=== PATIENT | female | born 1955 | race Caucasian/White ===

== ENCOUNTER 2020-04-02 00:26 | Inpatient (IN) | payer MEDICARE, SELFPAY ==
[2020-04-02] VITALS (15 sets, daily range): BP systolic 70–115; BP diastolic 38–86; PULSE 57–78; RESP 16–20; TEMP 36.4–37.1; O2SAT 93–98; BMI 25.1
--- NOTE | ~2020-04-02 | XR_ITS ---
EXAMINATION: XR abdomen/kub 1V DATE: 04/03/2020 03:59 INDICATION: Ischemic bowel TECHNIQUE: A supine view of the abdomen on 2 radiographs was obtained. COMPARISON: CT dated 04/02/2020 FINDINGS: Moderate amount of gas scattered throughout the colon. No pneumatosis. No dilated loops of gas-filled bowel to suggest obstruction. Cholecystectomy clips in the right upper quadrant. L3 compression frac ture with 50% right-sided vertebral body height loss resulting in a lumbar levoscoliosis. Severe lumb ar spondylosis. Status post L3 and L4 laminectomies. Spinal stimulator lead which projects over the l ower thoracic spine with lead tips at the level of T6. IMPRESSION: 1. Normal bowel gas pattern. Reviewed, dictated and finalized at location A.
--- NOTE | ~2020-04-02 | CT_ITS ---
EXAMINATION: CT abdomen pelvis w con DATE: 04/02/2020 01:53 INDICATION: Abdomen pain TECHNIQUE: Computed tomography (CT) of the abdomen and pelvis was performed with 100 cc Omnipaque 350 intravenous contrast. The dose-length product was 240.01 mGy-cm. COMPARISON: CT dated 01/20/2012. FINDINGS: There is a 5 mm right lower lobe nodule, image 56. Heart size normal. No significant pleura l or pericardial effusion. There are fluid-filled small bowel loops. There is fluid in the colon as w ell as the stomach with mild wall thickening of the distal stomach/pylorus. No definite obstruction. No free air, free fluid or abscess. There is a catheter in the bladder. Status post cholecystectomy w ith expected prominence of the bile ducts. There is a spinal stimulator lead with laminectomy changes in the lumbar spine. There are probable hepatic cysts. No significant vascular abnormality. No lymph adenopathy. IMPRESSION: 1. Fluid in the stomach, small bowel and colon with mild distal stomach wall thickening. Findings zakia picious for gastroenteritis/enterocolitis. 2: 5 mm right lower lobe nodule. Follow-up CT chest and 6-12 months recommended to assess stability. Reviewed, dictated and finalized at location A. IMPRESSION: 1. Fluid in the stomach, small bowel and colon with mild distal stomach wall th ickening. Findings suspicious for gastroenteritis/enterocolitis. 2: 5 mm right lower lobe nodule. Follow-up CT chest and 6-12 months recommende d to assess stability.
--- NOTE | ~2020-04-02 | CT_ITS ---
EXAMINATION: CTA chest PE protocol EXAM DATE: 04/02/2020 23:57 INDICATION: Hypotension, elevated d-dimer. TECHNIQUE: Spiral CTA of the chest (pulmonary arteries) was performed with 100 cc Omnipaque 350 intr avenous contrast injection. Images were acquired during the pulmonary arterial phase. Coronal maxi mum intensity projection 3D-reconstructions were created by the technologist on dedicated workstation . Axial, coronal and sagittal reformatted images were reviewed. The dose-length product (DLP) for t his examination was 288.52 mGy-cm. The exposure was tailored according to patient size (auto mA exp osure control), and iterative reconstruction (ASIR) was used as additional dose reduction technique. Comparison is made to prior examination from 01/17/2012. FINDINGS: Pulmonary arteries are well opacified and without intraluminal filling defects. No thora cic aortic dissection. Congenital aberrant right subclavian artery. The lungs are clear. Trace pleu ral or pericardial effusions. Tracheobronchial tree is patent. There is no mediastinal, hilar or a xillary lymphadenopathy. There is no pneumothorax. Heart normal in size. No evidence of coronar y arterial calcification. There are cholecystectomy clips. There is thoracic spondylosis without os teoblastic or osteolytic lesions identified. Spine neural stimulator leads with tips at the T5-6 in terspace level. IMPRESSION: 1. No pulmonary emboli or acute cardiopulmonary findings. Reviewed, dictated and finalized at location G.
--- NOTE | 2020-04-02 00:46 | ED.ABDPAIN ---
HPI - Abdominal Pain General Chief Complaint: Abdominal Pain Stated Complaint: Abdominal Pain Time Seen by Provider: 04/02/20 00:46 Source: patient and EMS Mode of arrival: EMS Limitations: no limitations History of Present Illness HPI narrative: Patient states that she was in bed suddenly felt cramping in her abdomen. She went to the bathroom trying to have a bowel movement. She states at 1st she was unable to move her bowels. On EMS arrival they stated was obvious that she had moved her bowels. She complains of generalized cramping in her abdomen, headache. MD elicited complaint: abdominal pain Onset (ago): hour(s) (1.5) Pain Consistency: intermittent Location: diffuse Severity: moderate Quality: cramping and aching Radiation: none Migration to: no migration Exacerbating factors: movement Relieving factors: nothing Context: confirms history of similar episodes Associated symptoms: nausea and vomiting Related Data Patient : No Home Medications Medication Instructions Recorded Confirmed cyclobenzaprine 5 mg PO BID 04/02/20 04/02/20 duloxetine 30 mg PO BID 04/02/20 04/02/20 fluticasone propionate 1 spray INTRANASAL DAILY 04/02/20 04/02/20 gabapentin 800 mg PO TID 04/02/20 04/02/20 levothyroxine 50 mcg PO DAILY 04/02/20 04/02/20 lidocaine 1 patch TOPICAL Q12-24H 04/02/20 04/02/20 lisinopril 5 mg PO DAILY 04/02/20 04/02/20 methylnaltrexone [Relistor] 12 mg SUBCUT DAILY 04/02/20 04/02/20 naloxone [Narcan] 1 spray INTRANASAL PRN PRN 04/02/20 04/02/20 oxycodone-acetaminophen 1 tablet PO TID 04/02/20 04/02/20 sumatriptan succinate 6 mg SUBCUT DIRECTED PRN 04/02/20 04/02/20 Allergies Allergy/AdvReac Type Severity Reaction Status Date / Time Penicillins Allergy Severe anaphylaxis, Verified 01/01/12 15:09 hives Sulfa (Sulfonamide Allergy Mild Diarrhea Verified 04/02/20 04:09 Antibiotics) Review of Systems Constitutional: Constitutional: Denies chills, Denies fever(s) and Denies weakness Eyes: Eyes: Reports no additional eye complaints ENT: Reports system reviewed and no additional complaints, except as documented Cardiovascular: Cardiovascular: Reports no additional cardiovascular complaints Respiratory: Respiratory: Reports no additional respiratory complaints Genitourinary: Genitourinary: Reports no additional female genitourinary complaints Musculoskeletal: Musculoskeletal: Reports no additional musculoskeletal complaints Integumentary/Breasts: Skin/Breast: Reports system reviewed and no additional complaints, except as docu Neurologic: Reports system reviewed and no additional complaints, except as documented and Reports headache(s) Psychiatric: Psychiatric: Reports no additional psychiatric complaints Endocrine: Endocrine: Reports no additional endocrine complaints Hematologic/Lymphatic: Hematologic/Lymphatic: Reports no additional hematologic/lymphatic complaints Allergic/Immunologic: Allergic/Immunologic: Reports no additional allergic/immunologic complaints [facility] Past Medical History Medical History (Updated 04/02/20 @ 03:59 by Darrell Blackburn MD) Chronic back pain Depression with anxiety GERD (gastroesophageal reflux disease) Hypothyroidism Insomnia Migraine Rheumatoid arthritis Surgical History Surgical History (Updated 04/02/20 @ 01:11 by Darrell Blackburn MD) H/O knee surgery left H/O shoulder surgery left History of cholecystectomy Presence of neurostimulator Social History Social History (Updated 04/02/20 @ 01:12 by Darrell Blackburn MD) Smoking status: Never smoker Alcohol intake: never Substance use: never Exam Const: General: no acute distress and ill appearing chronically Nutritional Appearance: thin Orientation/consciousness: patient oriented x3 HENMT: Head: normal to inspection Ears: external ears normal General nose exam: Normal external nose present Face and sinus: normal facial exam Mouth: Yes lip normal and Yes moist mucous memb
[2020-04-02 01:10] LABS: Basophils Absolute Auto 0.03 K/mm3 (0.00-0.10); Basophils Percent Auto 0.2 % (0.0-1.0); Eosinophils Absolute Auto 0.15 K/mm3 (0.02-0.50); Hemoglobin 14.1 g/dL (11.7-13.8); Immature Granulocyte Absolute 0.12 K/mm3 (0.00-0.00); Immature Granulocyte Percent A 0.8 % (0.0-0.0); Lymphocytes Absolute Auto 1.52 K/mm3 (1.10-4.50); Lymphocytes Percent Auto 9.7 % (18.0-42.0); Mean Corpuscular HGB Conc 32.8 g/dL (32.0-36.0); Mean Corpuscular Hemoglobin 30.1 pg (27.0-31.0); Mean Corpuscular Volume 91.9 fL (78.0-102.0); Mean Platelet Volume 9.1 fl (9.2-11.8); Monocytes Percent Auto 4.5 % (2.0-11.0); Neutrophils Absolute Auto 13.1 K/mm3 (1.7-7.2); Neutrophils Percent Auto 83.8 % (50.0-70.0); Platelet Count Result 428 K/mm3 (150-420); Red Blood Count 4.68 M/mm3 (4.20-5.40); Red Cell Distribution Width 13.7 % (11.6-14.4); White Blood Count 15.6 K/mm3 (4.8-10.8)
[2020-04-02 01:27] LABS: Alanine Aminotransferase 20 U/L (14-59); Albumin Level 3.6 g/dL (3.4-5.0); Alkaline Phosphatase 221 U/L (46-116); Anion Gap 10.8 mmol/L (7-16); Aspartate Amino Transferase 24 U/L (15-37); Bilirubin,Total 0.2 mg/dL (0.00-1.00); Blood Urea Nitrogen 16 mg/dL (7-18); Calcium 9.1 mg/dL (8.5-10.1); Carbon Dioxide 31 mmol/L (21-32); Chloride 102 mmol/L (98-108); Estimated CRCL calculation 26 ml/min; Estimated Glomerular Filt Rate 37; Glucose 123 mg/dL (70-99); Lipase 118 U/L (73-393); Osmolality Calculated 292 mOsm/kg (285-295); Potassium 3.8 mmol/L (3.5-5.1); Sodium 140 mmol/L (136-145)
[2020-04-02 01:28] LABS: CRP 1.3 mg/dL (0.0-0.9)
[2020-04-02] MEDS: KETOROLAC 30 MG/ML VIAL (*BKC) IV PUSH (01:29)
[2020-04-02] MEDS: ONDANSETRON INJ 4 MG/2 ML VIAL IV PUSH ×2 (01:30→18:32)
[2020-04-02] MEDS: SODIUM CHLORIDE 0.9% IV 1,000 ML 999 ML IV CONT (01:30)
[2020-04-02 01:34] LABS: Amylase 196 U/L (25-115)
--- NOTE | 2020-04-02 01:37 | PC.NURSE ---
pt to xray for ct per stretcher
[2020-04-02] MEDS: SODIUM CHLORIDE 0.9% IV 1,000 ML 999 ML (03:02)
--- NOTE | 2020-04-02 03:03 | PC.NURSE ---
pt sleeping , easily aroused.
[2020-04-02 03:44] LABS: Appearance Urine Sl Cloudy (Clear); Bilirubin Urine Negative (Negative); Color Urine Yellow (Yellow); Glucose Urine UA Negative (Negative); Ketones Urine Negative (Negative); Leukocyte Esterase Ur 1+ LEU/UL (Negative); Nitrate Urine Negative (Negative); Protein Urine 2+ (Negative); Specific Grav Ur <= 1.005 (1.010-1.020); Urobilinogen Urine 0.2 mg/dL (0.2-1.0); pH Urine 6.5 (5.0-8.0)
[2020-04-02 03:53] LABS: Add Urine Microscopic? YES; Blood Urine Trace (Negative); WBC Clumps Urine Present /hpf; WBC Urine 51-75 /hpf (0-3)
[2020-04-02 03:54] LABS: Bacteria Urine 1+ /hpf; Squamous Epithelial Cell Urine Rare /hpf (Few)
[2020-04-02 04:19] LABS: Lactic Acid 1.8 mmol/L (0.4-2.0)
--- NOTE | 2020-04-02 04:32 | PC.NURSE ---
pt alert and stable. to floor with antonio baird per wheelchair.
[2020-04-02] MEDS: SODIUM CHLORIDE 0.9% IV 1,000 ML 200 ML IV CONT ×2 (04:58→09:37)
--- NOTE | 2020-04-02 05:18 | ADMGEN ---
This patient, Joyce Benitez, was admitted to 2nd Floor Room 206-1. Patient oriented to hospital policies and general routines including ID bracelet, bed and alarms, visiting hours, pain management, procedures, bathroom and other care routines, personal items, smoking policy, room service/diet, and visiting hours. Valuables list includes nightgown only. Information on how to activate the Rapid Response Team has been discussed. Patient are encouraged to report perceived risks to care and to ask questions if they do not understand what they are told or what they should do.
--- NOTE | 2020-04-02 08:01 | PC.NURSE ---
denies abdominal pain, back pain is bad, states 06/03
[2020-04-02] MEDS: CYCLOBENZAPRINE HCL 10 MG TABLET 5 MG PO ×2 (08:45→16:56)
[2020-04-02] MEDS: FLUTICASONE PROPIONATE 0.05% NA SPR 16 GM BTL (*BKC) 1 SPRAY NASAL (08:46)
[2020-04-02] MEDS: GABAPENTIN 400 MG CAPSULE 800 MG PO ×3 (08:46→16:56)
[2020-04-02] MEDS: LEVOTHYROXINE SODIUM 50 MCG TABLET PO (08:48)
[2020-04-02] MEDS: LIDOCAINE 5% PATCH 1 PATCH TRANSDERM (08:48)
[2020-04-02] MEDS: DULOXETINE HCL 30 MG CAPSULE.DR PO ×2 (08:48→16:57)
[2020-04-02 08:50] LABS: Amylase 61 U/L (25-115)
--- NOTE | 2020-04-02 08:53 | PC.NURSE ---
AM meds given including pain medication, no abdominal pain, states pain in her back and in her left flank region
[2020-04-02 09:40] LABS: Hematocrit 31.1 % (35.0-42.0); Hemoglobin 10.3 g/dL (11.7-13.8); Mean Corpuscular HGB Conc 33.1 g/dL (32.0-36.0); Mean Corpuscular Hemoglobin 30.4 pg (27.0-31.0); Mean Corpuscular Volume 91.7 fL (78.0-102.0); Mean Platelet Volume 9.5 fl (9.2-11.8); Platelet Count Result 277 K/mm3 (150-420); Red Blood Count 3.39 M/mm3 (4.20-5.40); Red Cell Distribution Width 14.1 % (11.6-14.4); White Blood Count 9.6 K/mm3 (4.8-10.8)
--- NOTE | 2020-04-02 09:40 | PC.NURSE ---
Pain in back starting to ease 05/03
[2020-04-02 09:49] LABS: Alanine Aminotransferase 19 U/L (14-59); Albumin Level 2.6 g/dL (3.4-5.0); Alkaline Phosphatase 151 U/L (46-116); Anion Gap 11.1 mmol/L (7-16); Aspartate Amino Transferase 22 U/L (15-37); Bilirubin,Total 0.2 mg/dL (0.00-1.00); Blood Urea Nitrogen 11 mg/dL (7-18); Calcium 7.7 mg/dL (8.5-10.1); Carbon Dioxide 24 mmol/L (21-32); Chloride 108 mmol/L (98-108); Estimated CRCL calculation 35 ml/min; Estimated Glomerular Filt Rate 54; Glucose 125 mg/dL (70-99); Osmolality Calculated 288 mOsm/kg (285-295); Potassium 4.1 mmol/L (3.5-5.1); Sodium 139 mmol/L (136-145); Total Protein 5.1 g/dL (6.4-8.2)
--- NOTE | 2020-04-02 10:58 | PC.NURSE ---
napping, no evidence of pain noted, fluids infusing
--- NOTE | 2020-04-02 12:20 | PC.NURSE ---
Up to void, tolerated fair, used commode, fluids infusing, urine mixed with loose stool noted
--- NOTE | 2020-04-02 13:14 | PM.IMHP ---
H&P: HPI History of Present Illness Chief complaint: entercolitis <IVETT Marshall-Carley - Last Filed: 04/02/20 13:51> Narrative: Joyce Benitez is a 64 year old female that came to the ED with complaints of abdominal pain. patient has a past medical history chronic back pain, depression anxiety, GERD, hypothyroidism, insomnia, migraine, rheumatoid arthritis. According to patient yesterday she was at she started to have abdominal pain with cramping. She noted that she originally believed that she was constipated and attempted to have a bowel movement. She noted that she was unable to that. She also reported of nausea and vomiting with decreased appetite. She did not describe any other symptoms at that time. She noted that EMS was called and by the time they arrived she had had a bowel movement and continue to have abdominal pain with cramping. Patient noted that she has not ever experience this before. Today during this assessment she noted that her condition has much improved but she continues to have abdominal tenderness and is not able to tolerate fluids at this time her vital signs are 90/60, 58,18,, 95% room air. While in the ED a UA was collected in indicated that the patient had leukocytes and bacteria in her urine a CT of the pelvis was completed which indicated gastroenteritis /entercolitis. her amylase was also increase but a lipase within was within normal limits. Patient's CRP was also elevated. her white count was also at 15.6 and her creatinine was at 1.42. patient is being admitted for gastroenteritis and UTI. she continues to complain of pain in the umbilical area. Patient denies SOB, CP, palpitation, extremity numbness, lightheadness, dizziness, constipation, diarrhea, chills or fever. <IVETT Marshall-Carley - Last Filed: 04/02/20 13:51> Review of Systems Review of Systems: Narrative: CONSTITUTIONAL :No weight loss, fever, chills, weakness or fatigue.: HEENT: Eyes: No diplopia or blurred vision. ENT: No earache, sore throat or runny nose. CARDIOVASCULAR: No pressure, squeezing, strangling, tightness, heaviness or aching about the chest, neck, axilla or epigastrium. RESPIRATORY: No cough, shortness of breath, PND or orthopnea. GASTROINTESTINAL: No nausea, vomiting or diarrhea. GENITOURINARY: No dysuria, frequency or urgency. MUSCULOSKELETAL: No muscle, back pain, joint pain or stiffness. SKIN: No change in skin, hair or nails. NEUROLOGIC: No paresthesias, fasciculations, seizures or weakness. PSYCHIATRIC: No disorder of thought or mood. ENDOCRINE: No heat or cold intolerance, polyuria or polydipsia. HEMATOLOGICAL: No easy bruising or bleeding. CONSTITUTIONAL : complain weakness and fatigue. HEENT: Eyes: No diplopia or blurred vision. ENT: No earache, sore throat or runny nose. CARDIOVASCULAR: No pressure, squeezing, strangling, tightness, heaviness or aching about the chest, neck, axilla or epigastrium. RESPIRATORY: No cough, shortness of breath, PND or orthopnea. GASTROINTESTINAL: abdominal tenderness in the umbilical area region, slight nausea no vomiting GENITOURINARY: No dysuria, frequency or urgency. MUSCULOSKELETAL:joint pain or stiffness due to rheumatoid arthritis SKIN: No change in skin, hair or nails. NEUROLOGIC: No paresthesias, fasciculations, seizures or weakness. PSYCHIATRIC: No disorder of thought or mood. ENDOCRINE: No heat or cold intolerance, polyuria or polydipsia. HEMATOLOGICAL: No easy bruising or bleeding. <LAVELLE Marshall - Last Filed: 04/02/20 13:51> [facility] Past Medical History Medical History: Medical History (Updated 04/02/20 @ 13:50 by LAVELLE Marshall) Chronic back pain Depression with anxiety GERD (gastroesophageal reflux disease) Hypothyroidism Insomnia Migraine Rheumatoid arthritis <LAVELLE Marshall - Last Filed: 04/02/20 13:51> Surgical History Surgical History: Surgical History (Updated 04/02/20 @ 01:11 by Darrell Donahue
[2020-04-02] MEDS: metroNIDAZOLE 250 MG TABLET 500 MG PO ×2 (13:32→22:42)
[2020-04-02] MEDS: METHYLNALTREXONE 12 MG/0.6 ML VIAL SUB-Q (13:39)
--- NOTE | 2020-04-02 14:50 | PC.NURSE ---
states legs hurting, scheduled percocet administered, no distress noted, napping at intervals, fluids infusing
--- NOTE | 2020-04-02 16:00 | PC.NURSE ---
NAPPING, NO DISTRESS. NO C/O ABD PAIN.
--- NOTE | 2020-04-02 18:20 | PC.NURSE ---
PT DENIES NAUSEA, NO VOMITING, ATE 100% OF SUPPER. STATES SHE STILL FEELS WEAK AND FATIGUED. NO DISTRESS. PT REPORTS TAKING ANALGESIC AT HOME THAT IS NOT ON OUR FORMULARY, PT TO CONTACT FAMILY TO BRING IN FOR HOSPITALIST TO EVALUATE AND CONTINUE IF WARRANTED.
[2020-04-02] MEDS: SODIUM CHLORIDE 0.9% IV 1,000 ML 100 ML IV CONT ×2 (18:27→22:47)
[2020-04-02] MEDS: ACETAMINOPHEN 500 MG TABLET 1000 MG PO (18:32)
--- NOTE | 2020-04-02 19:32 | PM.EVENT ---
Event Note Event Note Event Note: Pt's daughter brought in her medications from home. Jocye is taking oxycodone 10/325 TID along withi Xtamza (oxycodone S.R.) 13.5 mg every 12 hours. Pt. states her back pain is not being controlled with just the oxycodone 10/325 TID. Xtamza is not on the formulary. I have written for oxycodone SR 10 mg every 12 hours as well as oxycodone 5 mg/325 q 8 hours prn breakthrough pain. Will have patient monitored regularly with continuous pulse ox.
--- NOTE | 2020-04-02 20:29 | PC.NURSE ---
ER Physician called without answer. Lisa, DIESEL RETROFIT DESIGNER, states doctor is on the phone. Commercial Kitchen Service Technician tells DIESEL RETROFIT DESIGNER of patients BP 70/48, taken manually. Ernestina to report BP to doctor.
[2020-04-02] MEDS: LACTATED RINGERS 1,000 ML 999 ML IV CONT (20:50)
--- NOTE | 2020-04-02 21:04 | PM.EVENT ---
Event Note Event Note Event Note: Blood pressure 70/48 pulse = 73 at 20:16. Pulse ox dropped form being in the 90s down to 82% briefly. Pt. c/o increased abdominal pain,#9/10, diffuse. . O) Alert. Supine. Appears uncomfortable. Cor: RR & R, no m. anterior and lateral breath sounds are clear. Abd is flat. Decreased bowel sounds, no tinkles. Tender throughout with rebound pain; no guarding or rigidity. WBC = 9.6, CRP = 5.3 (increased from 1.3 yesterday), LA = 1.4, ABG - pH = 7. 38, CO2 = 38, HCO3 = 22. D-dimer 3.66, CTA pulmonary - negative for PE. After 2.5 liters of fluid blood pressure 112/71. A/P 1. Hypotension: 2. Increased abdominal pain. No indication of sepsis as cause of hypotension. Pt. received over 4060 ml of fluid on 04/02, but the additional fluids did raise the blood pressure suggesting previous vascular depletion. No signs of enteric ischemia on 04/02 CT of absdomen with IV contrast. Repeat study cannot be done for 24 hours. Elevated CRP may be enteritis not yet responding to Flagyl. Elevated d-dimer, consider enteric ischemia as possible etiology. Surgical consult if no improvement in the next 8 - 12 hours.
--- NOTE | 2020-04-02 21:07 | ECG_ITS ---
Measurements Intervals [place] Rate: 58 P: 60 WV: 195 QRS: 61 QRSD: 103 T: 60 QT: 414 QTc: 407 Interpretive Statements SINUS BRADYCARDIA BORDERLINE ECG Electronically Signed On 04-03-2020 6:57:53 CDT by Macario Day D.O.
[2020-04-02 21:14] LABS: Base Excess ABG -2.7 mmol/L (0-2); HCO3 ABG 22.1 mmol/L (23-29); Oxygen Content ABG 14.2 %vol (16.0-22.0); Oxygen Saturation ABG 98.6 % (95-97); Oxyhemoglobin 98.3 % (94-100); PCO2 ABG 38.5 mmHg (35-45); PO2 ABG 162.9 mmHg (80-90); pH ABG 7.38 (7.35-7.45)
[2020-04-02 21:15] LABS: Device NASAL CANNULA; Modified Allen's Test Pass; Site Drawn LEFT RADIAL
[2020-04-02 21:18] LABS: Basophils Absolute Auto 0.01 K/mm3 (0.00-0.10); Basophils Percent Auto 0.1 % (0.0-1.0); Eosinophils Absolute Auto 0.11 K/mm3 (0.02-0.50); Eosinophils Percent Auto 1.1 % (1.0-6.0); Hematocrit 27.4 % (35.0-42.0); Hemoglobin 8.9 g/dL (11.7-13.8); Immature Granulocyte Absolute 0.03 K/mm3 (0.00-0.00); Immature Granulocyte Percent A 0.3 % (0.0-0.0); Lymphocytes Absolute Auto 1.03 K/mm3 (1.10-4.50); Lymphocytes Percent Auto 10.7 % (18.0-42.0); Mean Corpuscular HGB Conc 32.5 g/dL (32.0-36.0); Mean Corpuscular Hemoglobin 30.1 pg (27.0-31.0); Mean Corpuscular Volume 92.6 fL (78.0-102.0); Monocytes Absolute Auto 0.66 K/mm3 (0.10-0.90); Monocytes Percent Auto 6.9 % (2.0-11.0); Neutrophils Absolute Auto 7.8 K/mm3 (1.7-7.2); Neutrophils Percent Auto 80.9 % (50.0-70.0); Platelet Count Result 238 K/mm3 (150-420); Red Blood Count 2.96 M/mm3 (4.20-5.40); Red Cell Distribution Width 14.3 % (11.6-14.4); White Blood Count 9.6 K/mm3 (4.8-10.8)
[2020-04-02 21:31] LABS: INR 1.1; Partial Thromboplastin Time 30.9 SEC (22.3-31.6); Prothrombin Time 11.1 Seconds (9.64-11.0)
[2020-04-02 21:33] LABS: D Dimer 3.66 mg/L (0.19-0.50)
--- NOTE | 2020-04-02 21:33 | PC.NURSE ---
Critical D-Dimer of 3.[address] Vasquez, face to face, by chief writer at this time.
[2020-04-02 21:34] LABS: Alanine Aminotransferase 26 U/L (14-59); Albumin Level 2.2 g/dL (3.4-5.0); Alkaline Phosphatase 125 U/L (46-116); Anion Gap 8.2 mmol/L (7-16); Aspartate Amino Transferase 30 U/L (15-37); Blood Urea Nitrogen 10 mg/dL (7-18); Calcium 7.5 mg/dL (8.5-10.1); Carbon Dioxide 27 mmol/L (21-32); Chloride 110 mmol/L (98-108); Estimated CRCL calculation 42 ml/min; Estimated Glomerular Filt Rate > 60; Glucose 121 mg/dL (70-99); Osmolality Calculated 292 mOsm/kg (285-295); Potassium 4.2 mmol/L (3.5-5.1); Sodium 141 mmol/L (136-145); Total Protein 4.6 g/dL (6.4-8.2)
[2020-04-02 21:35] LABS: Lactic Acid 1.4 mmol/L (0.4-2.0)
[2020-04-02 21:38] LABS: Bilirubin,Total < 0.1 mg/dL (0.00-1.00)
[2020-04-02 21:40] LABS: CRP 5.3 mg/dL (0.0-0.9); Lipase 91 U/L (73-393)
[2020-04-02 21:40] LABS: Troponin I < 0.02 ng/mL (0.00-0.056)
--- NOTE | 2020-04-02 21:50 | PCDIET ---
1000 ml LR bolus ended at 2150
--- NOTE | 2020-04-02 21:50 | PC.NURSE ---
1000 ml bolus of LR ended at 2150
--- NOTE | 2020-04-02 22:00 | PC.NURSE ---
Per Dr. Vasquez, get norepinepherine hanging but do not start at the moment and continue to monitor blood pressure.
--- NOTE | 2020-04-02 22:38 | PC.NURSE ---
Per Dr. Vasquez's verbal order a 500 ml bolus of NS was started out of continuous running bag of NS at 2200, the 500 ml bolus finished at 2230.
[2020-04-02] MEDS: DOCUSATE SODIUM 100 MG CAPSULE PO (22:43)
[2020-04-02] MEDS: PANTOPRAZOLE 40 MG TABLET PO (22:43)
--- NOTE | 2020-04-02 23:35 | PC.NURSE ---
Dr. Vasquez called to inform of most recent blood pressure and clairify if patient could have pain medication. Dr. Vasquez ok with giving scheduled Percocet at this time but he wanted the 10 mg dose of scheduled oxy held at this time.
[2020-04-02] MEDS: LACTATED RINGERS 1,000 ML 500 ML IV CONT (23:42)
--- NOTE | 2020-04-02 23:46 | PC.NURSE ---
Patient down to CT
[2020-04-03] VITALS (16 sets, daily range): BP systolic 98–112; BP diastolic 52–71; PULSE 50–93; RESP 15–18; TEMP 35.9–37.4; O2SAT 95–99
--- NOTE | 2020-04-03 00:30 | PC.NURSE ---
Dr. Vasquez called to check on patient. HE was informed of recent blood pressure of 112/71. He gave order to decrease vital sign frequency to every two hours and he stated that it would be okay to discontinue continuous pulseox monitoring. He also gave order to increase continuous normal saline to 150 ml/hr and he stated the if blood pressure held up that she could have her scheduled 10 mg oxycodone if needed in a few hours.
--- NOTE | 2020-04-03 03:55 | PC.NURSE ---
Shrub Planter called Dr. Vasquez and informed him of patients current blood pressure of 98/65. No new orders received.
[2020-04-03] MEDS: metroNIDAZOLE 250 MG TABLET 500 MG PO ×2 (05:59→16:53)
[2020-04-03] MEDS: SODIUM CHLORIDE 0.9% IV 1,000 ML 150 ML IV CONT ×3 (06:09→21:27)
[2020-04-03 06:51] LABS: Hematocrit 29.2 % (35.0-42.0); Hemoglobin 9.4 g/dL (11.7-13.8); Mean Corpuscular HGB Conc 32.2 g/dL (32.0-36.0); Mean Corpuscular Hemoglobin 30.1 pg (27.0-31.0); Mean Corpuscular Volume 93.6 fL (78.0-102.0); Mean Platelet Volume 9.3 fl (9.2-11.8); Platelet Count Result 245 K/mm3 (150-420); Red Blood Count 3.12 M/mm3 (4.20-5.40); Red Cell Distribution Width 14.6 % (11.6-14.4)
[2020-04-03 07:04] LABS: Alanine Aminotransferase 27 U/L (14-59); Albumin Level 2.2 g/dL (3.4-5.0); Alkaline Phosphatase 120 U/L (46-116); Anion Gap 7.1 mmol/L (7-16); Aspartate Amino Transferase 28 U/L (15-37); Blood Urea Nitrogen 7 mg/dL (7-18); CRP 6.7 mg/dL (0.0-0.9); Calcium 7.9 mg/dL (8.5-10.1); Carbon Dioxide 29 mmol/L (21-32); Chloride 112 mmol/L (98-108); Estimated CRCL calculation 43 ml/min; Estimated Glomerular Filt Rate > 60; Glucose 98 mg/dL (70-99); Osmolality Calculated 296 mOsm/kg (285-295); Potassium 4.1 mmol/L (3.5-5.1); Sodium 144 mmol/L (136-145); Total Protein 4.7 g/dL (6.4-8.2)
[2020-04-03 07:21] LABS: Bilirubin,Total < 0.1 mg/dL (0.00-1.00)
[2020-04-03] MEDS: LIDOCAINE 5% PATCH 1 PATCH TRANSDERM (09:45)
[2020-04-03] MEDS: FLUTICASONE PROPIONATE 0.05% NA SPR 16 GM BTL (*BKC) 1 SPRAY NASAL (09:45)
[2020-04-03] MEDS: ENOXAPARIN 40 MG/0.4 ML SYRINGE SUB-Q (09:46)
[2020-04-03] MEDS: CYCLOBENZAPRINE HCL 10 MG TABLET 5 MG PO ×2 (09:47→16:53)
[2020-04-03] MEDS: PANTOPRAZOLE 40 MG TABLET PO ×2 (09:48→20:31)
[2020-04-03] MEDS: DOCUSATE SODIUM 100 MG CAPSULE PO ×2 (09:48→20:31)
[2020-04-03] MEDS: LEVOTHYROXINE SODIUM 50 MCG TABLET PO (09:49)
[2020-04-03] MEDS: lisinopriL 5 MG TABLET PO (09:49)
[2020-04-03] MEDS: GABAPENTIN 400 MG CAPSULE 800 MG PO ×3 (09:49→16:52)
[2020-04-03] MEDS: DULOXETINE HCL 30 MG CAPSULE.DR PO ×2 (09:49→16:53)
[2020-04-03] MEDS: METHYLNALTREXONE 12 MG/0.6 ML VIAL SUB-Q (11:58)
[2020-04-03 13:36] LABS: Occult Blood Negative (Negative)
--- NOTE | 2020-04-03 14:01 | P.PNIM_ITS ---
Progress Note: A&P Assessment and Plan (1) Enterocolitis: Code(s): K52.9 - Noninfective gastroenteritis and colitis, unspecified Status: Acute Assessment and Plan: * have improved but has not resolved * CT indicates-Findings suspicious for gastroenteritis/enterocolitis. * continue Flagyl day 2 * continue Zofran * Tylenol ordered for fever * continue physical therapy occupational therapy * blood culture pending * CRP worsening * occult blood negative * stool workup pending * will monitor hemoglobin hematocrit patient's hemoglobin on admission 14.1 currently 9.4 repeat hematocrit at 6:00 p.m. today. also ordered type and screen. * will infuse as needed (2) Acute UTI: Code(s): N39.0 - Urinary tract infection, site not specified Status: Acute Assessment and Plan: * UA indicates leukocytes and bacteria * UA culture pending * patient afebrile * denies any signs of urinary tract infection * continue Rocephin day 2 (3) Depression with anxiety: Code(s): F41.8 - Other specified anxiety disorders Status: Acute Assessment and Plan: * continue Cymbalta (4) Insomnia: Code(s): G47.00 - Insomnia, unspecified Status: Acute Assessment and Plan: * continue trazodone (5) Rheumatoid arthritis: Code(s): M06.9 - Rheumatoid arthritis, unspecified Status: Acute Assessment and Plan: * continue gabapentin , Flexeril and Relistor. * continue home pain medication (6) GERD (gastroesophageal reflux disease): Code(s): K21.9 - Gastro-esophageal reflux disease without esophagitis Status: Acute Assessment and Plan: * started Protonix (7) Hypothyroidism: Code(s): E03.9 - Hypothyroidism, unspecified Status: Acute Assessment and Plan: * continue Synthroid (8) DVT prophylaxis: Code(s): Z29.9 - Encounter for prophylactic measures, unspecified Status: Acute Assessment and Plan: * started Lovenox (9) Hypotension: Code(s): I95.9 - Hypotension, unspecified Status: Acute Assessment and Plan: * possibly secondary to excessive narcotics use due to chronic pain * patient with of hypotensive episode overnight, patient bolus with approximately 4 L fluids * according to patient this is chronic * continue vital signs is ordered Q 4 hours during the day Q 2 hours during the night * continue telemetry * troponin negative * EKG indicates sinus Shabbir (10) Constipated: Code(s): K59.00 - Constipation, unspecified Status: Acute Assessment and Plan: * started scheduled MiraLax with stool softeners and senna, she also have p.r.n. MiraLax and suppository (11) Elevated d-dimer: Code(s): R79.89 - Other specified abnormal findings of blood chemistry Status: Acute Assessment and Plan: * possibly secondary to inflammation * D-dimer 3.66 * CTA negative for PE * patient's sats 99% on 2 L nasal cannula Subjective Date/time seen: 04/03/20 14:01 patient continues to complain left lower quadrant pain. she also complains of constipation. overnight patient blood pressure dropped in the 80/50 did she receive approximately 4 L bolus. Currently her blood pressure is 110/64. she noted that overnight she did have a little nausea but currently she does. She also noted that her nausea increases with food intake. she also pointed out that she has a history hypotensive especially while she is sleeping. She noted that s
--- NOTE | 2020-04-03 14:01 | PM.IMPN ---
Progress Note: A&P Assessment and Plan (1) Enterocolitis: Code(s): K52.9 - Noninfective gastroenteritis and colitis, unspecified Status: Acute Assessment and Plan: have improved but has not resolved CT indicates-Findings suspicious for gastroenteritis/enterocolitis. continue Flagyl day 2 continue Zofran Tylenol ordered for fever continue physical therapy occupational therapy blood culture pending CRP worsening occult blood negative stool workup pending will monitor hemoglobin hematocrit patient's hemoglobin on admission 14.1 currently 9.4 repeat hematocrit at 6:00 p.m. today. also ordered type and screen. will infuse as needed (2) Acute UTI: Code(s): N39.0 - Urinary tract infection, site not specified Status: Acute Assessment and Plan: UA indicates leukocytes and bacteria UA culture pending patient afebrile denies any signs of urinary tract infection continue Rocephin day 2 (3) Depression with anxiety: Code(s): F41.8 - Other specified anxiety disorders Status: Acute Assessment and Plan: continue Cymbalta (4) Insomnia: Code(s): G47.00 - Insomnia, unspecified Status: Acute Assessment and Plan: continue trazodone (5) Rheumatoid arthritis: Code(s): M06.9 - Rheumatoid arthritis, unspecified Status: Acute Assessment and Plan: continue gabapentin , Flexeril and Relistor. continue home pain medication (6) GERD (gastroesophageal reflux disease): Code(s): K21.9 - Gastro-esophageal reflux disease without esophagitis Status: Acute Assessment and Plan: started Protonix (7) Hypothyroidism: Code(s): E03.9 - Hypothyroidism, unspecified Status: Acute Assessment and Plan: continue Synthroid (8) DVT prophylaxis: Code(s): Z29.9 - Encounter for prophylactic measures, unspecified Status: Acute Assessment and Plan: started Lovenox (9) Hypotension: Code(s): I95.9 - Hypotension, unspecified Status: Acute Assessment and Plan: possibly secondary to excessive narcotics use due to chronic pain patient with of hypotensive episode overnight, patient bolus with approximately 4 L fluids according to patient this is chronic continue vital signs is ordered Q 4 hours during the day Q 2 hours during the night continue telemetry troponin negative EKG indicates sinus Shabbir (10) Constipated: Code(s): K59.00 - Constipation, unspecified Status: Acute Assessment and Plan: started scheduled MiraLax with stool softeners and senna, she also have p.r.n. MiraLax and suppository (11) Elevated d-dimer: Code(s): R79.89 - Other specified abnormal findings of blood chemistry Status: Acute Assessment and Plan: possibly secondary to inflammation D-dimer 3.66 CTA negative for PE patient's sats 99% on 2 L nasal cannula Subjective Date/time seen: 04/03/20 14:01 patient continues to complain left lower quadrant pain. she also complains of constipation. overnight patient blood pressure dropped in the 80/50 did she receive approximately 4 L bolus. Currently her blood pressure is 110/64. she noted that overnight she did have a little nausea but currently she does. She also noted that her nausea increases with food intake. she also pointed out that she has a history hypotensive especially while she is sleeping. She noted that she informed her doctor Dr. Martinez did need to address her hypotension because it only occurred occasionally. patient also on high dose pain medication for chronic pain which could have also hypotensive episode. Patient denies SOB, CP, palpitation, extremity numbness, lightheadness, dizziness, diarrhea, chills or fever. Review of Systems Review of Systems: Narrative: CONSTITUTIONAL :No weight loss, fever, chills, she does complain of weakness: H
[2020-04-03 16:52] LABS: Hematocrit 31.4 % (35.0-42.0); Mean Corpuscular HGB Conc 31.8 g/dL (32.0-36.0); Mean Corpuscular Volume 94.3 fL (78.0-102.0); Mean Platelet Volume 9.2 fl (9.2-11.8); Platelet Count Result 253 K/mm3 (150-420); Red Blood Count 3.33 M/mm3 (4.20-5.40); Red Cell Distribution Width 14.5 % (11.6-14.4); White Blood Count 8.8 K/mm3 (4.8-10.8)
[2020-04-03] MEDS: SENNA/DOCUSATE SODIUM TABLET 1 TAB PO (20:31)
--- NOTE | 2020-04-03 21:41 | PC.NURSE ---
Dr. Downing notified that patient is complaining of pain to left knee. Patient is requesting another Lidocaine Patch be applied. New order received for Lidocaine Patch.
[2020-04-04] VITALS (8 sets, daily range): BP systolic 99–138; BP diastolic 61–83; PULSE 60–87; RESP 18–24; TEMP 36.4–37.1; O2SAT 94–100
[2020-04-04] MEDS: LIDOCAINE 5% PATCH 1 PATCH TRANSDERM ×2 (00:27→09:31)
[2020-04-04] MEDS: ONDANSETRON INJ 4 MG/2 ML VIAL IV PUSH ×2 (00:33→23:55)
[2020-04-04] MEDS: SODIUM CHLORIDE 0.9% IV 1,000 ML 150 ML IV CONT ×3 (04:14→19:08)
[2020-04-04] MEDS: metroNIDAZOLE 250 MG TABLET 500 MG PO ×2 (05:00→16:53)
[2020-04-04 05:55] LABS: Hematocrit 28.9 % (35.0-42.0); Hemoglobin 9.2 g/dL (11.7-13.8); Mean Corpuscular HGB Conc 31.8 g/dL (32.0-36.0); Mean Corpuscular Hemoglobin 29.7 pg (27.0-31.0); Mean Corpuscular Volume 93.2 fL (78.0-102.0); Mean Platelet Volume 9.7 fl (9.2-11.8); Platelet Count Result 246 K/mm3 (150-420); Red Cell Distribution Width 14.5 % (11.6-14.4)
[2020-04-04 06:18] LABS: Alanine Aminotransferase 21 U/L (14-59); Albumin Level 2.2 g/dL (3.4-5.0); Alkaline Phosphatase 111 U/L (46-116); Anion Gap 9.6 mmol/L (7-16); Aspartate Amino Transferase 19 U/L (15-37); Bilirubin Direct 0.1 mg/dL (0-0.2); Bilirubin,Total 0.1 mg/dL (0.00-1.00); Blood Urea Nitrogen 5 mg/dL (7-18); Calcium 8.2 mg/dL (8.5-10.1); Carbon Dioxide 27 mmol/L (21-32); Chloride 113 mmol/L (98-108); Estimated CRCL calculation 47 ml/min; Estimated Glomerular Filt Rate > 60; Glucose 100 mg/dL (70-99); Lipase 69 U/L (73-393); Magnesium 1.6 mg/dL (1.8-2.4); Osmolality Calculated 299 mOsm/kg (285-295); Potassium 3.6 mmol/L (3.5-5.1); Sodium 146 mmol/L (136-145); Total Protein 4.9 g/dL (6.4-8.2)
[2020-04-04] MEDS: ENOXAPARIN 40 MG/0.4 ML SYRINGE SUB-Q (09:30)
[2020-04-04] MEDS: FLUTICASONE PROPIONATE 0.05% NA SPR 16 GM BTL (*BKC) 1 SPRAY NASAL (09:30)
[2020-04-04] MEDS: polyethylene glycoL 3350 17 GM POWD.PACK PO (09:30)
[2020-04-04] MEDS: DULOXETINE HCL 30 MG CAPSULE.DR PO ×2 (09:32→16:53)
[2020-04-04] MEDS: DOCUSATE SODIUM 100 MG CAPSULE PO (09:32)
[2020-04-04] MEDS: PANTOPRAZOLE 40 MG TABLET PO ×2 (09:32→20:02)
[2020-04-04] MEDS: LEVOTHYROXINE SODIUM 50 MCG TABLET PO (09:33)
[2020-04-04] MEDS: GABAPENTIN 400 MG CAPSULE 800 MG PO ×3 (09:33→16:53)
[2020-04-04] MEDS: CYCLOBENZAPRINE HCL 10 MG TABLET 5 MG PO ×2 (09:34→16:52)
[2020-04-04] MEDS: METHYLNALTREXONE 12 MG/0.6 ML VIAL SUB-Q (09:48)
[2020-04-04] MEDS: MAGNESIUM SULF 2 GM/WATER 50ML 2 GM/50 ML BAG IVPB (09:49)
--- NOTE | 2020-04-04 10:13 | PC.NURSE ---
Up from chair to commode
--- NOTE | 2020-04-04 10:56 | P.PNIM_ITS ---
Progress Note: A&P Assessment and Plan (1) Enterocolitis: Code(s): K52.9 - Noninfective gastroenteritis and colitis, unspecified Status: Acute Assessment and Plan: * have improved but has not resolved * CT indicates-Findings suspicious for gastroenteritis/enterocolitis. * continue Flagyl day 3 * continue Zofran * Tylenol ordered for fever * continue physical therapy occupational therapy * blood culture pending * CRP improving * occult blood negative * stool workup - cryptosporidium and giardia not detected * will monitor hemoglobin hematocrit patient's hemoglobin on admission 14.1 currently 9.2 * will infuse as needed (2) Acute UTI: Code(s): N39.0 - Urinary tract infection, site not specified Status: Acute Assessment and Plan: * UA indicates leukocytes and bacteria * UA culture no growth * patient afebrile * denies any signs of urinary tract infection * will stop Rocephin tomorrow Rocephin day 3 (3) Depression with anxiety: Code(s): F41.8 - Other specified anxiety disorders Status: Acute Assessment and Plan: * continue Cymbalta (4) Insomnia: Code(s): G47.00 - Insomnia, unspecified Status: Acute Assessment and Plan: * continue trazodone (5) Rheumatoid arthritis: Code(s): M06.9 - Rheumatoid arthritis, unspecified Status: Acute Assessment and Plan: * continue gabapentin , Flexeril and Relistor. * continue home pain medication (6) GERD (gastroesophageal reflux disease): Code(s): K21.9 - Gastro-esophageal reflux disease without esophagitis Status: Acute Assessment and Plan: * continue Protonix (7) Hypothyroidism: Code(s): E03.9 - Hypothyroidism, unspecified Status: Acute Assessment and Plan: * continue Synthroid (8) DVT prophylaxis: Code(s): Z29.9 - Encounter for prophylactic measures, unspecified Status: Acute Assessment and Plan: * continue Lovenox (9) Hypotension: Code(s): I95.9 - Hypotension, unspecified Status: Acute Assessment and Plan: * resolved * possibly secondary to excessive narcotics use due to chronic pain * according to patient this is chronic for her * continue vital signs is ordered Q 4 hours during the day Q 2 hours during the night * continue telemetry * troponin negative * EKG indicates sinus Shabbir patient current heart rate 71 (10) Constipated: Code(s): K59.00 - Constipation, unspecified Status: Acute Assessment and Plan: * started scheduled MiraLax with stool softeners and senna, she also have p.r.n. MiraLax and suppository * she did have a bowel movement yesterday and today (11) Elevated d-dimer: Code(s): R79.89 - Other specified abnormal findings of blood chemistry Status: Acute Assessment and Plan: * possibly secondary to inflammation * D-dimer 3.66 * CTA negative for PE * patient's sats 99% on 2 L nasal cannula Subjective Date/time seen: 04/04/20 10:56 patient in bed this a.m.. she noted that did not Sleep well overnight due to her chronic pain. she did have a little nausea without vomiting. she noted that she is able to eat but has a decreased appetite. she will remain on IV fluids until she is able to tolerate p.o. fl uids. on 04/02/2020 patient had hypotensive episode, her night was uneventful today. he will keep the patient for another day and re-evaluate in the a.m.. she also continues to have LLQ pain.
--- NOTE | 2020-04-04 10:56 | PM.IMPN ---
Progress Note: A&P Assessment and Plan (1) Enterocolitis: Code(s): K52.9 - Noninfective gastroenteritis and colitis, unspecified Status: Acute Assessment and Plan: have improved but has not resolved CT indicates-Findings suspicious for gastroenteritis/enterocolitis. continue Flagyl day 3 continue Zofran Tylenol ordered for fever continue physical therapy occupational therapy blood culture pending CRP improving occult blood negative stool workup - cryptosporidium and giardia not detected will monitor hemoglobin hematocrit patient's hemoglobin on admission 14.1 currently 9.2 will infuse as needed (2) Acute UTI: Code(s): N39.0 - Urinary tract infection, site not specified Status: Acute Assessment and Plan: UA indicates leukocytes and bacteria UA culture no growth patient afebrile denies any signs of urinary tract infection will stop Rocephin tomorrow Rocephin day 3 (3) Depression with anxiety: Code(s): F41.8 - Other specified anxiety disorders Status: Acute Assessment and Plan: continue Cymbalta (4) Insomnia: Code(s): G47.00 - Insomnia, unspecified Status: Acute Assessment and Plan: continue trazodone (5) Rheumatoid arthritis: Code(s): M06.9 - Rheumatoid arthritis, unspecified Status: Acute Assessment and Plan: continue gabapentin , Flexeril and Relistor. continue home pain medication (6) GERD (gastroesophageal reflux disease): Code(s): K21.9 - Gastro-esophageal reflux disease without esophagitis Status: Acute Assessment and Plan: continue Protonix (7) Hypothyroidism: Code(s): E03.9 - Hypothyroidism, unspecified Status: Acute Assessment and Plan: continue Synthroid (8) DVT prophylaxis: Code(s): Z29.9 - Encounter for prophylactic measures, unspecified Status: Acute Assessment and Plan: continue Lovenox (9) Hypotension: Code(s): I95.9 - Hypotension, unspecified Status: Acute Assessment and Plan: resolved possibly secondary to excessive narcotics use due to chronic pain according to patient this is chronic for her continue vital signs is ordered Q 4 hours during the day Q 2 hours during the night continue telemetry troponin negative EKG indicates sinus Shabbir patient current heart rate 71 (10) Constipated: Code(s): K59.00 - Constipation, unspecified Status: Acute Assessment and Plan: started scheduled MiraLax with stool softeners and senna, she also have p.r.n. MiraLax and suppository she did have a bowel movement yesterday and today (11) Elevated d-dimer: Code(s): R79.89 - Other specified abnormal findings of blood chemistry Status: Acute Assessment and Plan: possibly secondary to inflammation D-dimer 3.66 CTA negative for PE patient's sats 99% on 2 L nasal cannula Subjective Date/time seen: 04/04/20 10:56 patient in bed this a.m.. she noted that did not Sleep well overnight due to her chronic pain. she did have a little nausea without vomiting. she noted that she is able to eat but has a decreased appetite. she will remain on IV fluids until she is able to tolerate p.o. fluids. on 04/02/2020 patient had hypotensive episode, her night was uneventful today. he will keep the patient for another day and re-evaluate in the a.m.. she also continues to have LLQ pain. Review of Systems Review of Systems: Narrative: CONSTITUTIONAL :No weight loss, fever, chills, complains of weakness or fatigue and decreased appetite HEENT: Eyes: No diplopia or blurred vision. ENT: No earache, sore throat or runny nose. CARDIOVASCULAR: No pressure, squeezing, strangling, tightness, heaviness or aching about the chest, neck, axilla or epigastrium. RESPIRATORY: No cough, shortness of breath, PND or orthopnea. GASTROINTESTINAL:
--- NOTE | 2020-04-04 13:56 | PC.NURSE ---
Bunn discontinued, tolerated well, 400 out urine output, chago care provided
[2020-04-04] MEDS: SENNA/DOCUSATE SODIUM TABLET 1 TAB PO (20:01)
[2020-04-04] MEDS: TRAZODONE HCL 50 MG TABLET 25 MG PO (20:01)
--- NOTE | 2020-04-04 22:40 | PC.NURSE ---
pt given ice pack for leg, states pain is still 9/10 and she is unable to get to sleep
[2020-04-05] VITALS: BP 132/66; PULSE 66; RESP 20; TEMP 36.9; O2SAT 95
--- NOTE | 2020-04-05 00:09 | PC.NURSE ---
Patient assisted from bed to bedside commode with stand by assist. She voided 300 ml of clear light yellow urine. She is reporting pain 8/10 to her back, neck, bilateral knees, and her lower abdomen. Patient reports slight nausea. Per patient request she transferred to the bedside recliner at this time, she states that it might help with her back pain. she has call light and bedside table within reach.
--- NOTE | 2020-04-05 01:09 | PC.NURSE ---
[employer]ing [employer] in to reassess patients pain. She stated that she was having a lot of restlessness in her legs and discomfort in her feet. Patient stated that she wanted to walk in the alaniz to see if that would help relax her legs. With stand by assist, gait belt, and walker the patient ambulated in the hallway from room 207 down to the room 205 and then back. When she returned to her room she stated that she wanted to get back in the bed. She also washed her legs with bath wipes and applied lotion to her feet and legs, once she lied down radio news writer placed a warm blanket over her legs. patient requested an ice pack for her neck pain. Patient has call light and bedside table within reach. She states that she feel relaxed at this time.
[2020-04-05] MEDS: SODIUM CHLORIDE 0.9% IV 1,000 ML 150 ML IV CONT (02:04)
--- NOTE | 2020-04-05 02:20 | PC.NURSE ---
18 gauge IV in right hand was infiltrated and discontinued earlier in the night. Fluids were running through 22 gauge IV in left AC. Pump was repeatedly alarming for downstream occlusion. Patient gave permission to start a new IV not in the AC for fluids to infuse.
--- NOTE | 2020-04-05 02:35 | PC.NURSE ---
#22 gauge IV catheter placed in pt's right forearm. IV fluid infusing as ordered. #18 IV catheter removed from the right hand.
[2020-04-05 03:38] VITALS: BP 138/78; PULSE 80; RESP 20; TEMP 36.7; O2SAT 96
[2020-04-05] MEDS: metroNIDAZOLE 250 MG TABLET 500 MG PO (05:00)
[2020-04-05 06:12] LABS: Hematocrit 28.7 % (35.0-42.0); Hemoglobin 9.6 g/dL (11.7-13.8); Mean Corpuscular HGB Conc 33.4 g/dL (32.0-36.0); Mean Corpuscular Hemoglobin 30.7 pg (27.0-31.0); Mean Corpuscular Volume 91.7 fL (78.0-102.0); Mean Platelet Volume 9.5 fl (9.2-11.8); Platelet Count Result 272 K/mm3 (150-420); Red Blood Count 3.13 M/mm3 (4.20-5.40); Red Cell Distribution Width 14.1 % (11.6-14.4); White Blood Count 6.8 K/mm3 (4.8-10.8)
[2020-04-05 06:29] LABS: Alanine Aminotransferase 20 U/L (14-59); Albumin Level 2.4 g/dL (3.4-5.0); Alkaline Phosphatase 106 U/L (46-116); Anion Gap 9.3 mmol/L (7-16); Aspartate Amino Transferase 19 U/L (15-37); Bilirubin,Total 0.1 mg/dL (0.00-1.00); Blood Urea Nitrogen 5 mg/dL (7-18); CRP 2.8 mg/dL (0.0-0.9); Carbon Dioxide 29 mmol/L (21-32); Chloride 111 mmol/L (98-108); Estimated CRCL calculation 53 ml/min; Estimated Glomerular Filt Rate > 60; Glucose 91 mg/dL (70-99); Magnesium 1.8 mg/dL (1.8-2.4); Osmolality Calculated 299 mOsm/kg (285-295); Potassium 3.3 mmol/L (3.5-5.1); Sodium 146 mmol/L (136-145); Total Protein 5.2 g/dL (6.4-8.2)
[2020-04-05 07:26] VITALS: BP 160/80; PULSE 82; RESP 18; TEMP 36.8; O2SAT 95
[2020-04-05] MEDS: KCL 20 MEQ/SW 100 ML 100 ML 50 MEQ IVPB (07:35)
--- NOTE | 2020-04-05 08:03 | PC.NURSE ---
Up to commode with SBA, tolerated well
[2020-04-05] MEDS: METHYLNALTREXONE 12 MG/0.6 ML VIAL SUB-Q (09:30)
[2020-04-05] MEDS: LIDOCAINE 5% PATCH 1 PATCH TRANSDERM ×2 (09:30→12:31)
[2020-04-05] MEDS: polyethylene glycoL 3350 17 GM POWD.PACK PO (09:31)
[2020-04-05] MEDS: FLUTICASONE PROPIONATE 0.05% NA SPR 16 GM BTL (*BKC) 1 SPRAY NASAL (09:32)
[2020-04-05] MEDS: ENOXAPARIN 40 MG/0.4 ML SYRINGE SUB-Q (09:32)
[2020-04-05] MEDS: PANTOPRAZOLE 40 MG TABLET PO (09:33)
[2020-04-05] MEDS: LEVOTHYROXINE SODIUM 50 MCG TABLET PO (09:33)
[2020-04-05] MEDS: DOCUSATE SODIUM 100 MG CAPSULE PO (09:33)
[2020-04-05] MEDS: DULOXETINE HCL 30 MG CAPSULE.DR PO (09:33)
[2020-04-05] MEDS: CYCLOBENZAPRINE HCL 10 MG TABLET 5 MG PO (09:34)
[2020-04-05] MEDS: GABAPENTIN 400 MG CAPSULE 800 MG PO ×2 (09:34→12:28)
--- NOTE | 2020-04-05 09:50 | PC.NURSE ---
Up to commode with SBA only, tolerated well, feeling better today
--- NOTE | 2020-04-05 11:01 | P.DS_ITS ---
DS: Admitting Diagnosis Admitting Diagnosis Admitting Diagnosis: Noninfective gastroenteritis and colitis, unspecified DS: Discharge Diagnosis Discharge Diagnosis (1) Enterocolitis: Code(s): K52.9 - Noninfective gastroenteritis and colitis, unspecified Status: Acute Assessment and Plan: * Has resolved * CT indicates-Findings suspicious for gastroenteritis/enterocolitis. * with discharged with Flagyl and Zosyn * CRP improving * occult blood negative * stool workup - cryptosporidium and giardia not detected (2) Acute UTI: Code(s): N39.0 - Urinary tract infection, site not specified Status: Acute Assessment and Plan: * UA indicates leukocytes and bacteria * UA culture no growth * patient afebrile * denies any signs of urinary tract infection * Rocephin. (3) Depression with anxiety: Code(s): F41.8 - Other specified anxiety disorders Status: Acute Assessment and Plan: * continue Cymbalta (4) Insomnia: Code(s): G47.00 - Insomnia, unspecified Status: Acute Assessment and Plan: * continue trazodone (5) Rheumatoid arthritis: Code(s): M06.9 - Rheumatoid arthritis, unspecified Status: Acute Assessment and Plan: * continue gabapentin , Flexeril and Relistor. * continue home pain medication (6) GERD (gastroesophageal reflux disease): Code(s): K21.9 - Gastro-esophageal reflux disease without esophagitis Status: Acute Assessment and Plan: * continue Protonix (7) Hypothyroidism: Code(s): E03.9 - Hypothyroidism, unspecified Status: Acute Assessment and Plan: * continue Synthroid (8) DVT prophylaxis: Code(s): Z29.9 - Encounter for prophylactic measures, unspecified Status: Acute Assessment and Plan: * (9) Hypotension: Code(s): I95.9 - Hypotension, unspecified Status: Acute Assessment and Plan: * resolved * possibly secondary to excessive narcotics use due to chronic pain * according to patient this is chronic for her\t * continue telemetry * troponin negative (10) Constipated: Code(s): K59.00 - Constipation, unspecified Status: Acute Assessment and Plan: * Continue stool softener the laxatives at home (11) Elevated d-dimer: Code(s): R79.89 - Other specified abnormal findings of blood chemistry Status: Acute Assessment and Plan: * possibly secondary to inflammation * D-dimer 3.66 * CTA negative for PE * patient's sats 99% on 2 L nasal cannula DS: Summary Hospital Course Hospital Course: 04/02/2020- Joyce Benitez is a 64 year old female that came to the ED with complaints of abdominal pain. patient has a past medical history chronic back pain, depression anxiety, GERD, hypothyroidism, insomnia, migraine, rheumatoid arthritis. According to patient she started to have abdominal pain with cramping. She noted that she originally believed that she was constipated and attempted to have a bowel movement. She also reported of nausea and vomiting with decreased appetite. She did not describe any other symptoms . She noted that EMS was called and by the time they arrived she had had a bowel movement and continue to have abdominal pain with cramping. While in the ED a UA was collected in indicated that the patient had leukocytes and bacteria in her urine. Her ABX was dc'edbecause culture did not have grwoth. a CT of the pelvis was completed which indicated gastroenteritis /ente
--- NOTE | 2020-04-05 11:01 | PM.DS ---
DS: Admitting Diagnosis Admitting Diagnosis Admitting Diagnosis: Noninfective gastroenteritis and colitis, unspecified DS: Discharge Diagnosis Discharge Diagnosis (1) Enterocolitis: Code(s): K52.9 - Noninfective gastroenteritis and colitis, unspecified Status: Acute Assessment and Plan: Has resolved CT indicates-Findings suspicious for gastroenteritis/enterocolitis. with discharged with Flagyl and Zosyn CRP improving occult blood negative stool workup - cryptosporidium and giardia not detected (2) Acute UTI: Code(s): N39.0 - Urinary tract infection, site not specified Status: Acute Assessment and Plan: UA indicates leukocytes and bacteria UA culture no growth patient afebrile denies any signs of urinary tract infection Rocephin. (3) Depression with anxiety: Code(s): F41.8 - Other specified anxiety disorders Status: Acute Assessment and Plan: continue Cymbalta (4) Insomnia: Code(s): G47.00 - Insomnia, unspecified Status: Acute Assessment and Plan: continue trazodone (5) Rheumatoid arthritis: Code(s): M06.9 - Rheumatoid arthritis, unspecified Status: Acute Assessment and Plan: continue gabapentin , Flexeril and Relistor. continue home pain medication (6) GERD (gastroesophageal reflux disease): Code(s): K21.9 - Gastro-esophageal reflux disease without esophagitis Status: Acute Assessment and Plan: continue Protonix (7) Hypothyroidism: Code(s): E03.9 - Hypothyroidism, unspecified Status: Acute Assessment and Plan: continue Synthroid (8) DVT prophylaxis: Code(s): Z29.9 - Encounter for prophylactic measures, unspecified Status: Acute Assessment and Plan: (9) Hypotension: Code(s): I95.9 - Hypotension, unspecified Status: Acute Assessment and Plan: resolved possibly secondary to excessive narcotics use due to chronic pain according to patient this is chronic for her\t continue telemetry troponin negative (10) Constipated: Code(s): K59.00 - Constipation, unspecified Status: Acute Assessment and Plan: Continue stool softener the laxatives at home (11) Elevated d-dimer: Code(s): R79.89 - Other specified abnormal findings of blood chemistry Status: Acute Assessment and Plan: possibly secondary to inflammation D-dimer 3.66 CTA negative for PE patient's sats 99% on 2 L nasal cannula DS: Summary Hospital Course Hospital Course: 04/02/2020- Joyce Benitez is a 64 year old female that came to the ED with complaints of abdominal pain. patient has a past medical history chronic back pain, depression anxiety, GERD, hypothyroidism, insomnia, migraine, rheumatoid arthritis. According to patient she started to have abdominal pain with cramping. She noted that she originally believed that she was constipated and attempted to have a bowel movement. She also reported of nausea and vomiting with decreased appetite. She did not describe any other symptoms . She noted that EMS was called and by the time they arrived she had had a bowel movement and continue to have abdominal pain with cramping. While in the ED a UA was collected in indicated that the patient had leukocytes and bacteria in her urine. Her ABX was dc'edbecause culture did not have grwoth. a CT of the pelvis was completed which indicated gastroenteritis /entercolitis. Patient was admitted for gastroenteritis and UTI. she was treated with rocephin and flagy. Her rocephin was discontinue before discharge. Patient's urine culture is without growth. Patient condition has improved. Patient also has chronic constipation and has had several bowel movements this day. she is able to tolerate food without experiencing nausea vomiting and does not experience pain while palpating her abdomen.
--- NOTE | 2020-04-05 11:18 | PC.NURSE ---
Resting in bed, plan to dc home today, agreeable, awaiting orders
--- NOTE | 2020-04-05 11:47 | PC.NURSE ---
Getting dressed, ride to be here between [id number]
--- NOTE | 2020-04-05 12:45 | PC.NURSE ---
discharge home via wheel chair, personal items and discharge instructions with patient, home medication returned to patient
--- NOTE | 2020-04-05 18:46 | PM.EVENT ---
Event Note Event Note Event Note: Patient states that she feels much better and has no abdominal pain today. She has been tolerating orals well. Vitals are stable. Alert and oriented. No distress. Mucous membranes are moist and pink. Regular rate and rhythm without murmur. Lungs are clear to auscultation bilaterally. Abdomen is soft and nontender and nondistended. Extremities are warm dry and pink. Home today. I have examined the patient reviewed the chart. I discussed the patient's care with Bee CONTEH and agree with her assessment and plan.
[2020-04-06 18:32] LABS: H pylori Ag Stool Not Detected (Not Detected)
== END 2020-04-05 12:45 | disposition home or self-care (01) | DRG 392 ==
LOC: CHSED 03:59 → CHS2ND 04:03
PROVIDERS: Family Medicine; Nurse Practitioner; Admitting Provider Emergency Medicine; Emergency Provider Emergency Medicine; Visit Provider Emergency Medicine
DX: K52.9 Noninfective gastroenteritis and colitis, unspecified (principal); N39.0 Urinary tract infection, site not specified; K21.9 Gastro-esophageal reflux disease without esophagitis; M54.9 Dorsalgia, unspecified; G89.29 Other chronic pain; E03.9 Hypothyroidism, unspecified; M06.9 Rheumatoid arthritis, unspecified; G47.00 Insomnia, unspecified; F32.9 Major depressive disorder, single episode, unspecified; F41.9 Anxiety disorder, unspecified; K59.00 Constipation, unspecified; R79.89 Other specified abnormal findings of blood chemistry
CPT/HCPCS: 36415; 36600; 71275; 74018; 74177; 80053; 81001; 82150; 82248; 82805; 83605; 83690; 83735; 84484; 85025; 85027; 85380; 85610; 85730; 86140; 86850; 86900; 86901; 87040; 87086; 87269; 87272; 87338; 93005; 96361; 96365; 96366; 96372; 96375; 96376; 99284; 99285; A9270; G0378; J0696; J1650; J1885; J2212; J2405; J3475; J3480; J7030; J7120; Q9965

== ENCOUNTER 2020-09-19 18:04 | Emergency (ER) | payer MEDICARE, SELFPAY ==
--- NOTE | ~2020-09-19 | XR_ITS ---
EXAMINATION: XR ankle LT 2V DATE: 09/19/2020 18:57 INDICATION: Left ankle pain. TECHNIQUE: 2 views of left ankle were obtained. COMPARISON: None. FINDINGS: Bone alignment is normal. There is a bone fragment distal to lateral malleolus. Osteopenia is noted. Joint spaces are normal. There are enthesophytes at the posterior and plantar aspects of ca lcaneal tuberosity. Ankle soft tissue swelling is noted. IMPRESSION: 1. Bone fragment distal to lateral malleolus, which may be a chronic finding or less likely an acute avulsion fracture. Reviewed, dictated and finalized at location A. ERY VENT PLUG INSERTER
--- NOTE | ~2020-09-19 | XR_ITS ---
EXAMINATION: XR foot LT 2V DATE: 09/19/2020 18:57 INDICATION: Lateral foot pain. Fall. TECHNIQUE: 2 views of left foot were obtained. COMPARISON: None. FINDINGS: There is mild hallux valgus. There is a chip fracture of dorsal lateral aspect of anterior process of calcaneus. There is a fragment of ossification distal to lateral malleolus. There is moder ate osteoarthritis of first metatarsophalangeal joint and mild osteoarthritis of some of the interpha langeal joints. There are enthesophytes at the posterior and plantar aspects of calcaneal tuberosity. IMPRESSION: 1. Chip fracture of dorsal lateral aspect of anterior process of calcaneus. 2. Fragment of ossification distal to lateral malleolus, which may be a chronic finding or less likel y an acute fracture. 3. Mild hallux valgus. 4. Polyarticular osteoarthritis. Reviewed, dictated and finalized at location A. FRAME SYSTEMS ENGINEER IMPRESSION: 1. Chip fracture of dorsal lateral aspect of anterior process of calcaneus. 2. Fragment of ossification distal to lateral malleolus, which may be a chronic finding or less likely an acute fracture. 3. Mild hallux valgus. 4. Polyarticular osteoarthritis.
--- NOTE | ~2020-09-19 | XR_ITS ---
EXAMINATION: XR knee LT 2V DATE: 09/19/2020 18:58 INDICATION: Left knee pain. Fall. TECHNIQUE: 2 views of left knee on 3 radiographs were obtained. COMPARISON: Left knee radiographs 11/19/2015 FINDINGS: There is a longstem total left knee arthroplasty revision in near-anatomic alignment. There are lucencies adjacent to the femoral and tibial components. No fracture. There is a small knee join t effusion. There is heterotopic ossification at the posterior and lateral aspects of the joint. IMPRESSION: 1. Total left knee arthroplasty revision in near-anatomic alignment. Lucencies adjacent to the arthro plasty may be the normal postoperative appearance or a sign of loosening versus infection. Comparison with postoperative radiographs is recommended. 2. Small knee joint effusion. Reviewed, dictated and finalized at location A. ON PICKER OPERATOR IMPRESSION: 1. Total left knee arthroplasty revision in near-anatomic alignment. Lucencies adjacent to the arthroplasty may be the normal postoperative appearance or a si gn of loosening versus infection. Comparison with postoperative radiographs is recommended. 2. Small knee joint effusion.
--- NOTE | 2020-09-19 18:15 | ED.GENADULT ---
HPI - General Adult General Chief complaint: Extremity Injury, Lower Stated complaint: foot pain Source: patient Mode of arrival: wheelchair Limitations: no limitations History of Present Illness HPI narrative: Joyce is a 64F with a PMH of chronic pain, opioid induced constipation, insomnia, depression/anxiety, RA, GERD, hypothyroidism and migraines that presented to the ED with pain from her left knee down to her foot. She was getting out of her bed this morning and leaned over to pet her dogs. Her left foot inverted, her leg buckled and she went down. She has had worsening pain in her left knee down to her foot since. She did not hit her head or lose consciousness. Related Data Home Medications Medication Instructions Recorded Confirmed Narcan 1 spray INTRANASAL PRN PRN 04/02/20 04/02/20 Relistor 12 mg SUBCUT DAILY 04/02/20 04/02/20 cyclobenzaprine 5 mg PO BID 04/02/20 04/02/20 duloxetine 30 mg PO BID 04/02/20 04/02/20 fluticasone propionate 1 spray INTRANASAL DAILY 04/02/20 04/02/20 gabapentin 800 mg PO TID 04/02/20 04/02/20 levothyroxine 50 mcg PO DAILY 04/02/20 04/02/20 lidocaine 1 patch TOPICAL Q12-24H 04/02/20 04/02/20 lisinopril 5 mg PO DAILY 04/02/20 04/02/20 oxycodone-acetaminophen 1 tablet PO TID 04/02/20 04/02/20 sumatriptan succinate 6 mg SUBCUT DIRECTED PRN 04/02/20 04/02/20 Allergies Allergy/AdvReac Type Severity Reaction Status Date / Time Penicillins Allergy Severe anaphylaxis, Verified 09/19/20 18:55 hives Sulfa (Sulfonamide Allergy Mild Diarrhea Verified 09/19/20 18:55 Antibiotics) Review of Systems Constitutional: Constitutional: Reports no additional constitutional complaints Eyes: Eyes: Reports no additional eye complaints ENT: Reports system reviewed and no additional complaints, except as documented Cardiovascular: Cardiovascular: Reports no additional cardiovascular complaints Respiratory: Respiratory: Reports no additional respiratory complaints Gastrointestinal: Gastrointestinal: Reports no additional gastrointestinal complaints Genitourinary: Genitourinary: Reports no additional female genitourinary complaints Musculoskeletal: Musculoskeletal: Reports as per HPI Integumentary/Breasts: Skin/Breast: Reports system reviewed and no additional complaints, except as docu Neurologic: Reports system reviewed and no additional complaints, except as documented Psychiatric: Psychiatric: Reports no additional psychiatric complaints Endocrine: Endocrine: Reports no additional endocrine complaints Hematologic/Lymphatic: Hematologic/Lymphatic: Reports no additional hematologic/lymphatic complaints Allergic/Immunologic: Allergic/Immunologic: Reports no additional allergic/immunologic complaints [facility] Past Medical History Medical History Chronic back pain Depression with anxiety GERD (gastroesophageal reflux disease) Hypothyroidism Insomnia Migraine Rheumatoid arthritis Surgical History Surgical History H/O knee surgery left H/O shoulder surgery left History of cholecystectomy Presence of neurostimulator Social History Social History Smoking status: Never smoker Second hand tobacco smoke exposure: Yes Alcohol intake: current Drinks per week: 1 Substance use: never Gender identity (if verbalized by the patient): Female Spiritual care concerns: No Exam Const: General: no acute distress Orientation/consciousness: patient oriented x3 Other: In mild distress from pain HENMT: Other: Normocephalic, Atraumatic Eyes: Conjunctivae: conjunctivae normal Pupils: Equal, round and reactive pupils present Neck: Neck: normal visual inspection Chest: Chest palpation & inspection: normal inspection of the chest Resp: Effort & Inspection: normal respiratory effort Cardio: Rate: regular
[2020-09-19 18:35] VITALS: BP 148/88; PULSE 83; RESP 20; TEMP 36.7; O2SAT 99
[2020-09-19] MEDS: MORPHINE SULFATE (*CRX) 4 MG/ML INJ 2 MG IM (18:55)
[2020-09-19] MEDS: KETOROLAC 30 MG/ML VIAL (*BKC) IM (19:30)
[2020-09-19 19:50] VITALS: BP 140/80; PULSE 80; RESP 20; O2SAT 99
== END 2020-09-19 20:00 | disposition home or self-care (01) ==
PROVIDERS: Emergency Provider Family Medicine; PCP Family Medicine
DX: S92.022A Displaced fracture of anterior process of left calcaneus, initial encounter for closed fracture (principal); X58.XXXA Exposure to other specified factors, initial encounter
CPT/HCPCS: 73560; 73600; 73620; 96372; 99283; 99284; J1885; J2270; L4350

== ENCOUNTER 2020-10-14 13:21 | Emergency (ER) | payer MEDICARE, SELFPAY ==
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
--- NOTE | ~2020-10-14 | XR_ITS ---
EXAMINATION: XR knee RT 3V DATE: 10/14/2020 14:58 INDICATION: Right knee pain. TECHNIQUE: 4 views of right knee were obtained. COMPARISON: Right knee radiographs 03/24/2011 FINDINGS: There is varus angulation at the knee. No fracture. There is severe osteoarthritis of media l compartment and mild osteoarthritis of lateral and patellofemoral compartments. There is a small kn ee joint effusion. There is a 9 mm loose body in the knee joint posteriorly. IMPRESSION: 1. Severe right knee osteoarthritis. 2. Small knee joint effusion with loose body. Reviewed, dictated and finalized at location A. ING MACHINE OPERATOR
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
[2020-10-14 13:35] VITALS: BP 114/67; PULSE 79; RESP 18; TEMP 36.8; O2SAT 99
[2020-10-14] MEDS: HYDROcodone/acetaminophen (*CRX) 5-325 MG TABLET 1 TAB PO (13:54)
[2020-10-14 16:25] VITALS: BP 112/72; PULSE 62; RESP 16; O2SAT 98
== END 2020-10-14 16:30 | disposition home or self-care (01) ==
PROVIDERS: Emergency Provider Emergency Medicine; PCP Family Medicine
DX: S09.90XA Unspecified injury of head, initial encounter (principal); T14.8XXA Other injury of unspecified body region, initial encounter; Y04.0XXA Assault by unarmed brawl or fight, initial encounter
CPT/HCPCS: 70450; 71101; 72125; 73562; 99283; 99284; A9270

== ENCOUNTER 2020-11-29 22:03 | Emergency (ER) | payer MEDICARE, SELFPAY ==
[2020-11-29 22:10] VITALS: BP 100/71; PULSE 71; RESP 18; TEMP 37; O2SAT 99
[2020-11-29] MEDS: TETRACAINE HCL 0.5% OPHTH SOLN 4 ML BTL 1 DROP EACH EYE (22:20)
[2020-11-29] MEDS: DACRIOSE EYE IRRIGATION 118 ML BOTTLE EACH EYE (22:20)
[2020-11-29] MEDS: FLUORESCEIN SOD 1 MG/STRIP LEFT EYE (22:25)
--- NOTE | 2020-11-29 22:43 | ED.EYEPROB ---
HPI - Eye Problem General Chief complaint: Eye Problems Stated complaint: eye injury Time Seen by Provider: 11/29/20 22:15 Source: patient and family Mode of arrival: ambulatory Limitations: no limitations History of Present Illness HPI Narrative: Patient comes in with left eye pain, after a cat scratched the left eye this am. This has been more of an aggravation to her as time has gone on. Related Data Home Medications Medication Instructions Recorded Confirmed Narcan 1 spray INTRANASAL PRN PRN 04/02/20 11/29/20 Relistor 12 mg SUBCUT DAILY 04/02/20 11/29/20 cyclobenzaprine 5 mg PO BID 04/02/20 11/29/20 duloxetine 30 mg PO BID 04/02/20 11/29/20 fluticasone propionate 1 spray INTRANASAL DAILY 04/02/20 11/29/20 gabapentin 800 mg PO TID 04/02/20 11/29/20 levothyroxine 50 mcg PO DAILY 04/02/20 11/29/20 lidocaine 1 patch TOPICAL Q12-24H 04/02/20 11/29/20 lisinopril 5 mg PO DAILY 04/02/20 11/29/20 oxycodone-acetaminophen 1 tablet PO TID 04/02/20 11/29/20 sumatriptan succinate 6 mg SUBCUT DIRECTED PRN 04/02/20 11/29/20 Allergies Allergy/AdvReac Type Severity Reaction Status Date / Time Penicillins Allergy Severe anaphylaxis, Verified 09/19/20 18:55 hives Sulfa (Sulfonamide Allergy Mild Diarrhea Verified 09/19/20 18:55 Antibiotics) Review of Systems Constitutional: Constitutional: Reports no additional constitutional complaints Eyes: Eyes: Reports no additional eye complaints ENT: Reports system reviewed and no additional complaints, except as documented Cardiovascular: Cardiovascular: Reports no additional cardiovascular complaints Respiratory: Respiratory: Reports no additional respiratory complaints Gastrointestinal: Gastrointestinal: Reports no additional gastrointestinal complaints Genitourinary: Genitourinary: Reports no additional female genitourinary complaints Musculoskeletal: Musculoskeletal: Reports no additional musculoskeletal complaints Integumentary/Breasts: Skin/Breast: Reports system reviewed and no additional complaints, except as docu Neurologic: Reports system reviewed and no additional complaints, except as documented Psychiatric: Psychiatric: Reports no additional psychiatric complaints Endocrine: Endocrine: Reports no additional endocrine complaints Hematologic/Lymphatic: Hematologic/Lymphatic: Reports no additional hematologic/lymphatic complaints Allergic/Immunologic: Allergic/Immunologic: Reports no additional allergic/immunologic complaints PMFSH Past Medical History Medical History Chronic back pain Depression with anxiety GERD (gastroesophageal reflux disease) Hypothyroidism Insomnia Migraine Rheumatoid arthritis Surgical History Surgical History H/O knee surgery left H/O shoulder surgery left History of cholecystectomy Presence of neurostimulator Family History Family History Father CAD (coronary artery disease) Social History Social History Smoking status: Never smoker Second hand tobacco smoke exposure: Yes Alcohol intake: current Drinks per week: 1 Substance use: never Gender identity (if verbalized by the patient): Female Spiritual care concerns: No Exam Narrative: Exam Narrative: Patient comes in complaining of scratch on left eye where a cat scratched her. Const: General: no acute distress Orientation/consciousness: patient oriented x3 HENMT: Head: normal to inspection Ears: external ears normal General nose exam: Normal external nose present Face and sinus: normal facial exam Mouth: Yes moist mucous membranes Eyes: Conjunctivae: conjunctivae normal Neck: Neck: normal visual inspection Chest: Chest palpation & inspection: normal inspection of the chest Resp: Effort & Inspection: normal respiratory effort Aus
[2020-11-29] MEDS: ERYTHROMYCIN OPHTH OINTMENT 3.5 GM TUBE 1 APPLIC LEFT EYE (22:58)
[2020-11-29 22:59] VITALS: BP 110/70; PULSE 87; RESP 20; TEMP 36.2; O2SAT 98
== END 2020-11-29 23:01 | disposition home or self-care (01) ==
PROVIDERS: Emergency Provider Emergency Medicine
DX: S05.02XA Injury of conjunctiva and corneal abrasion without foreign body, left eye, initial encounter (principal); W55.03XA Scratched by cat, initial encounter
CPT/HCPCS: 99283; A9270

== ENCOUNTER 2021-08-11 13:35 | Outpatient (NON) | payer MEDICARE, SELFPAY ==
[2021-08-11 13:53] LABS: Basophils Absolute Auto 0.02 K/mm3 (0.00-0.10); Basophils Percent Auto 0.3 % (0.0-1.0); Eosinophils Absolute Auto 0.04 K/mm3 (0.02-0.50); Eosinophils Percent Auto 0.5 % (1.0-6.0); Hematocrit 38.1 % (35.0-42.0); Hemoglobin 12.3 g/dL (11.7-13.8); Immature Granulocyte Absolute 0.02 K/mm3 (0.00-0.00); Immature Granulocyte Percent A 0.3 % (0.0-0.0); Lymphocytes Absolute Auto 1.52 K/mm3 (1.10-4.50); Lymphocytes Percent Auto 20.7 % (18.0-42.0); Mean Corpuscular HGB Conc 32.3 g/dL (32.0-36.0); Mean Corpuscular Hemoglobin 28.5 pg (27.0-31.0); Mean Corpuscular Volume 88.2 fL (78.0-102.0); Mean Platelet Volume 9.2 fl (9.2-11.8); Monocytes Absolute Auto 0.51 K/mm3 (0.10-0.90); Monocytes Percent Auto 6.9 % (2.0-11.0); Neutrophils Absolute Auto 5.3 K/mm3 (1.7-7.2); Neutrophils Percent Auto 71.3 % (50.0-70.0); Platelet Count Result 430 K/mm3 (150-420); Red Blood Count 4.32 M/mm3 (4.20-5.40); Red Cell Distribution Width 14.8 % (11.6-14.4); White Blood Count 7.4 K/mm3 (4.8-10.8)
[2021-08-11 14:21] LABS: Alanine Aminotransferase 23 U/L (14-59); Albumin Level 3.8 g/dL (3.4-5.0); Alkaline Phosphatase 152 U/L (46-116); Anion Gap 10 mmol/L (8-16); Aspartate Amino Transferase 16 U/L (15-37); Bilirubin,Total 0.3 mg/dL (0.00-1.00); Blood Urea Nitrogen 12 mg/dL (7-18); Calcium 9.1 mg/dL (8.5-10.1); Carbon Dioxide 27 mmol/L (21-32); Chloride 102 mmol/L (98-108); Estimated Glomerular Filt Rate > 60; Glucose 100 mg/dL (70-99); Osmolality Calculated 287 mOsm/kg (285-295); Potassium 4.4 mmol/L (3.5-5.1); Sodium 139 mmol/L (136-145); Thyroid Stimulating Hormone 2.03 uIU/mL (0.36-3.74); Total Protein 7.1 g/dL (6.4-8.2)
== END 2021-08-11 13:36 | disposition home or self-care (01) ==
PROVIDERS: Visit Provider Nurse Practitioner Family
DX: E03.9 Hypothyroidism, unspecified (principal); M54.9 Dorsalgia, unspecified; G89.29 Other chronic pain
CPT/HCPCS: 36415; 80053; 80307; 84443; 85025

== ENCOUNTER 2021-08-15 14:33 | Outpatient (CLI) | payer MEDICARE, SELFPAY ==
[2021-08-15 16:31] LABS: Cholesterol 172 mg/dL (0-200); HDL Direct 63 mg/dL (40-60); LDL Cholesterol Calculated 91 mg/dL (<130); Triglycerides 88 mg/dL (0-150)
[2021-08-15 16:33] LABS: Thyroid Stimulating Hormone Reflex 3.09 u/IU/mL (0.36-3.74)
== END 2021-08-15 14:34 | disposition home or self-care (01) ==
PROVIDERS: PCP Family Medicine; Visit Provider Family Medicine
DX: E78.5 Hyperlipidemia, unspecified (principal); E03.9 Hypothyroidism, unspecified
CPT/HCPCS: 36415; 80061; 84443

== ENCOUNTER 2021-10-01 11:09 | Outpatient (CLI) | payer MEDICARE, SELFPAY ==
--- NOTE | ~2021-10-01 | XR_ITS ---
EXAMINATION: XR lumbar spine 2-3V DATE: 10/01/2021 11:44 INDICATION: Chronic low back pain TECHNIQUE: Anteroposterior and lateral views of the lumbar spine, and cone-down lateral view of the l umbosacral junction were obtained. COMPARISON: 11/03/2016 FINDINGS: There are 30 degrees of lumbar scoliosis. No fracture is identified. Bone alignment is norm al. There is moderate loss of intervertebral disc space height at all levels. There is severe asymmet tashi loss of intervertebral disc space on the right at L2-3 and L3-4. The vertebral body heights are m aintained. Small degenerative osteophytes project from the anterior endplates of multiple vertebral b odies. A neurostimulator device is implanted in the posterior subcutaneous tissues of the right lower back. Its leads coursing in the central spinal canal above the superior margin of the radiographs. S urgical clips in the right upper quadrant are likely from prior cholecystectomy. IMPRESSION: 1. Lumbar levoscoliosis and moderate spondylosis without acute findings or significant interval carlson e. Reviewed, dictated and finalized at location A. ING ELEMENT REPAIRER IMPRESSION: 1. Lumbar levoscoliosis and moderate spondylosis without acute findings or sign ificant interval change.
== END 2021-10-01 11:10 | disposition home or self-care (01) ==
LOC: CHSLAB 11:12
PROVIDERS: PCP Nurse Practitioner Family; Visit Provider Nurse Practitioner Family
DX: M54.9 Dorsalgia, unspecified (principal); G89.29 Other chronic pain
CPT/HCPCS: 72100

== ENCOUNTER 2021-10-06 10:33 | Outpatient (RCR) | payer MEDICARE, SELFPAY ==
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
== END 2021-11-19 23:59 | disposition home or self-care (01) ==
LOC: CHSPT 10:33
PROVIDERS: PCP Family Medicine; Visit Provider Nurse Practitioner Family
DX: M25.561 Pain in right knee (principal)
CPT/HCPCS: 97110; 97161; 97530

== ENCOUNTER 2022-03-25 17:49 | Emergency (ER) | payer MEDICARE, SELFPAY ==
--- NOTE | ~2022-03-25 | XR_ITS ---
EXAMINATION: XR foot RT min 3V DATE: 03/25/2022 19:05 INDICATION: Right foot pain TECHNIQUE: Dorsoplantar, lateral, and 2 oblique views of the right foot were obtained. COMPARISON: None. FINDINGS: Hallux valgus is noted. There appear to be flexion deformities of the second and third toes at the proximal interphalangeal joints. No fracture is identified. Paraspinal soft tissue swelling o f the second toe. IMPRESSION: 1. Soft tissue swelling of the second toe without acute osseous abnormality identified. Reviewed, dictated and finalized at location F. IMPRESSION: 1. Soft tissue swelling of the second toe without acute osseous abnormality isabel ntified.
--- NOTE | ~2022-03-25 | XR_ITS ---
EXAMINATION: XR shoulder LT min 2V INDICATION: Left shoulder pain TECHNIQUE: Four views of the left shoulder are submitted. COMPARISON: 07/08/2018 FINDINGS: Again noted is a hemiarthroplasty involving the proximal left humerus. There is advanced os teoarthritis of the glenohumeral joint. There is widening of the acromioclavicular joint, likely due to distal clavicle resection. Soft tissues are unremarkable. IMPRESSION: 1. Advanced osteoarthritis of the glenohumeral joint without acute osseous abnormality. Reviewed, dictated and finalized at location F. IMPRESSION: 1. Advanced osteoarthritis of the glenohumeral joint without acute osseous abno rmality.
--- NOTE | ~2022-03-25 | XR_ITS ---
EXAMINATION: XR foot LT min 3V DATE: 03/25/2022 19:05 INDICATION: Left foot pain TECHNIQUE: Dorsoplantar, lateral, and 2 oblique views of the left foot were obtained. COMPARISON: 09/19/2020 FINDINGS: There is no acute fracture, dislocation, or subluxation. There is a moderate osteoarthritis of the first metatarsophalangeal joint and mild osteoarthritis in multiple interphalangeal joints. T here is a healed fracture of the anterior process of the calcaneus. A plantar calcaneal enthesophyte is noted. There appears to be a chronic flexion deformity at the second proximal interphalangeal join t. IMPRESSION: 1. No acute osseous abnormality. Reviewed, dictated and finalized at location F.
--- NOTE | ~2022-03-25 | CT_ITS ---
EXAMINATION: CT pelvis wo con DATE: 03/25/2022 19:06 INDICATION: Left-sided hip pain after fall TECHNIQUE: Computed tomography (CT) of the pelvis was performed without intravenous contrast. The dos e-length product (DLP) was 174.75 mGy-cm. Automated exposure control and iterative reconstruction maximilian hnique were employed. COMPARISON: None FINDINGS: Bone alignment is normal. There is no fracture. There is mild osteoarthritis of the hips. T he soft tissues are unremarkable. There is severe lumbar spondylosis. IMPRESSION: 1. No CT correlate for the patient's symptoms. Reviewed, dictated and finalized at location F.
--- NOTE | ~2022-03-25 | CT_ITS ---
EXAMINATION: CT cervical spine wo con DATE: 03/25/2022 19:05 INDICATION: Neck pain TECHNIQUE: Computed tomography (CT) of the cervical spine was performed without intravenous contrast. The dose-length product (DLP) was 174.75 mGy-cm. Automated exposure control and iterative reconstruc tion technique were employed. COMPARISON: 10/14/2020 FINDINGS: There is unchanged fusion of the C6 and C7 vertebral bodies. There is moderate loss of inte rvertebral disc space height at C5-6. No fracture is identified. The odontoid is intact. There is sev ere multilevel facet and uncovertebral joint osteoarthritis. An endovascular stent is noted in the le ft vertebral artery. IMPRESSION: 1. Moderate cervical spondylosis without acute findings or significant interval change. Reviewed, dictated and finalized at location F.
[2022-03-25 18:00] VITALS: BP 134/74; PULSE 68; RESP 20; TEMP 36.6; O2SAT 98
[2022-03-25] MEDS: KETOROLAC 30 MG/ML VIAL (*BKC) IM (19:23)
[2022-03-25] MEDS: cefTRIAXone 1 GM, LIDOCAINE HCL 1% LOCAL INJ 2.1 ML IM (19:24)
--- NOTE | 2022-03-25 19:32 | PC.NURSE ---
bilateral 2nd toes have scabbed areas, right 2nd toe is red and inflamed. attempted to cleanse and apply bandaid. pt declined.
--- NOTE | 2022-03-25 19:33 | PC.NURSE ---
report to antonio estrada
--- NOTE | 2022-03-25 20:49 | ED.FALL ---
HPI - Fall General Chief Complaint: Fall Stated Complaint: LT FOOT,LT HIP,LT Shoulder, and back Time Seen by Provider: 03/25/22 17:53 Source: patient and RN notes reviewed Mode of arrival: wheelchair Limitations: no limitations History of Present Illness HPI Narrative: Painful left shoulder and both feet after a fall. complaint: fall Onset (ago): hour(s) (1) Fall from: standing Fall witnessed: yes, by family Place fall occurred: home Loss of consciousness: none Prolonged down time: no Symptoms prior to fall: none Context: tripped/slipped Location of injury: other (lower extremities, shoulder) Severity scale (1-10): 3 Quality: dull and aching Associated symptoms (after fall): unable to walk Related Data Allergies Allergy/AdvReac Type Severity Reaction Status Date / Time Penicillins Allergy Severe anaphylaxis, Verified 03/26/22 11:26 hives Sulfa (Sulfonamide Allergy Mild Diarrhea Verified 03/26/22 11:26 Antibiotics) Review of Systems Review of Systems: All systems reviewed & are unremarkable except as noted in HPI and below Constitutional: Constitutional: Reports no additional constitutional complaints Eyes: Eyes: Reports no additional eye complaints ENT: Reports system reviewed and no additional complaints, except as documented Cardiovascular: Cardiovascular: Reports no additional cardiovascular complaints Respiratory: Respiratory: Reports no additional respiratory complaints Gastrointestinal: Gastrointestinal: Reports no additional gastrointestinal complaints Genitourinary: Genitourinary: Reports no additional female genitourinary complaints Musculoskeletal: Musculoskeletal: Reports arthralgias Comments: chronic foot ulcer, left shoulder pain Integumentary/Breasts: Skin/Breast: Reports system reviewed and no additional complaints, except as docu Neurologic: Reports system reviewed and no additional complaints, except as documented Psychiatric: Psychiatric: Reports no additional psychiatric complaints Endocrine: Endocrine: Reports no additional endocrine complaints Hematologic/Lymphatic: Hematologic/Lymphatic: Reports no additional hematologic/lymphatic complaints Allergic/Immunologic: Allergic/Immunologic: Reports no additional allergic/immunologic complaints [facility] Past Medical History Medical History Chronic back pain Chronic pain Depression with anxiety GERD (gastroesophageal reflux disease) Hypothyroidism Insomnia Left shoulder pain Migraine Neck pain Preoperative clearance Rheumatoid arthritis Right knee pain Surgical History Surgical History H/O knee surgery left H/O knee surgery Total right knee replacement-AUG 27 H/O shoulder surgery left History of cholecystectomy Presence of neurostimulator Family History Family History Father CAD (coronary artery disease) Social History Social History Smoking status: Never smoker Second hand tobacco smoke exposure: Yes Alcohol intake: current Drinks per week: 1 Substance use: never Substance use type: does not use Gender identity (if verbalized by the patient): Female Spiritual care concerns: No Exam Const: General: no acute distress Nutritional Appearance: well nourished Orientation/consciousness: patient oriented x3 Limitations: no limitations HENMT: Head: normal to inspection Ears: external ears normal, TM's normal bilaterally and EAC's normal General nose exam: Normal external nose present and Normal nares present Face and sinus: normal facial exam and sinuses nontender Mouth: Yes Normal oral and palatal mucosa present and Yes moist mucous membranes Teeth and gingiva: dentition normal Throat: posterior oropharynx normal Eyes: Conjunctivae: conjunctivae normal Pu
[2022-03-25 21:14] VITALS: BP 145/80; PULSE 62; RESP 19; TEMP 36.6; O2SAT 100
== END 2022-03-25 21:15 | disposition home or self-care (01) ==
PROVIDERS: Emergency Provider Emergency Medicine; PCP Nurse Practitioner Family
DX: M25.512 Pain in left shoulder (principal); M25.572 Pain in left ankle and joints of left foot; M25.571 Pain in right ankle and joints of right foot; L97.529 Non-pressure chronic ulcer of other part of left foot with unspecified severity; K21.9 Gastro-esophageal reflux disease without esophagitis; E03.9 Hypothyroidism, unspecified; M06.9 Rheumatoid arthritis, unspecified
CPT/HCPCS: 72125; 72192; 73030; 73630; 96372; 99284; J0696; J1885

== ENCOUNTER 2022-05-28 07:23 | Emergency (ER) | payer MEDICARE, SELFPAY ==
--- NOTE | ~2022-05-28 | XR_ITS ---
XR shoulder LT min 2V 05/28/2022 08:14 Indication: Left shoulder pain for 3 months after fall. History of surgery. Procedure: 4 views left shoulder Comparison: Comparison to multiple prior studies sequentially, with oldest reviewed study dated 01/2018. Findings: Stable appearance to left shoulder hemiarthroplasty. Stable glenohumeral joint osteoarthrit is. There is widening of the acromioclavicular joint, likely due to clavicular osteotomy. No acute fr acture or traumatic malalignment. Osteopenia. Impression: 1: No acute fracture. Reviewed, dictated and finalized at location A. Impression: 1: No acute fracture.
[2022-05-28 07:23] VITALS: BP 125/96; PULSE 71; RESP 20; TEMP 36.7; O2SAT 97
--- NOTE | 2022-05-28 07:38 | ED.UPPEXIN ---
HPI - Extremity Injury (Upper) General Chief Complaint: Extremity Problem,Nontraumatic Stated Complaint: NECK PAIN Time Seen by Provider: 05/28/22 07:39 Source: patient Mode of arrival: wheelchair History of Present Illness HPI narrative: 66-year-old history of Anxiety/depression, NAFLD, Raynaud's, chronic pain, migraine, peripheral neuropathy, liver scoliosis, status post multiple neck surgery/ back surgery/left shoulder surgery complicated by infection, status post left clavicular osteotomy, status post back nerve stimulator, presents to the ER with -- left shoulder and neck pain. The patient took Aleve without any relief. The patient has chronic neck and shoulder pain. She had a CT scan of the neck on 03/25/2022 which revealed spondylosis. She had an x-ray of the left shoulder on the same day which revealed arthritis. The patient has a history of left hemiarthroplasty. Patient has chronic pain. She has had left shoulder and headache on a daily basis. No history of recent trauma. The patient is able to move her left shoulder. -- headache since last night for which she took Imitrex. She has 2-3 episodes of headache a month. Does not have any photophobia or phonophobia. No nausea/ vomiting. No fever or focal neuro deficits. MD complaint: injury to: left and shoulder Onset (ago): month(s) Other Extremity Injury: Left: shoulder Other injuries: none Handedness: right Relieving factors: none Exacerbating factors: none Associated symptoms: denies other symptoms Treatments prior to arrival: NSAIDS Related Data Allergies Allergy/AdvReac Type Severity Reaction Status Date / Time Penicillins Allergy Severe anaphylaxis, Verified 03/26/22 11:26 hives Sulfa (Sulfonamide Allergy Mild Diarrhea Verified 03/26/22 11:26 Antibiotics) Review of Systems Review of Systems: All systems reviewed & are unremarkable except as noted in HPI and below Constitutional: Constitutional: Reports as per HPI and Reports no additional constitutional complaints Eyes: Eyes: Reports as per HPI and Reports no additional eye complaints ENT: Reports system reviewed and no additional complaints, except as documented and Reports as per HPI Cardiovascular: Cardiovascular: Reports as per HPI and Reports no additional cardiovascular complaints Respiratory: Respiratory: Reports as per HPI and Reports no additional respiratory complaints Gastrointestinal: Gastrointestinal: Reports as per HPI and Reports no additional gastrointestinal complaints Genitourinary: Genitourinary: Reports no additional female genitourinary complaints and Reports as per HPI Musculoskeletal: Musculoskeletal: Reports no additional musculoskeletal complaints and Reports as per HPI Comments: Chronic neck, back, left suprascapular and left shoulder pain. Integumentary/Breasts: Skin/Breast: Reports system reviewed and no additional complaints, except as docu and Reports as per HPI Neurologic: Reports system reviewed and no additional complaints, except as documented and Reports as per HPI Psychiatric: Psychiatric: Reports no additional psychiatric complaints and Reports as per HPI Endocrine: Endocrine: Reports no additional endocrine complaints and Reports as per HPI Hematologic/Lymphatic: Hematologic/Lymphatic: Reports no additional hematologic/lymphatic complaints and Reports as per HPI Allergic/Immunologic: Allergic/Immunologic: Reports no additional allergic/immunologic complaints and Reports as per HPI PMF Past Medical History Medical History Chronic back pain Chronic pain Depression with anxiety GERD (gastroesophageal reflux disease) Hypothyroidism Insomnia Left shoulder pain Migraine Neck pain Preoperative clearance Rheumatoid arthritis Right knee pain Surgical History Surgical History H/O knee surgery left H/O knee surgery Total right knee
[2022-05-28] MEDS: KETOROLAC 30 MG/ML VIAL (*BKC) IM (08:17)
[2022-05-28] MEDS: HYDROcodone/acetaminophen (*CRX) 5-325 MG TABLET 1 TAB PO (08:18)
[2022-05-28 08:50] VITALS: BP 122/78; PULSE 63; RESP 20; TEMP 36.7; O2SAT 98
== END 2022-05-28 08:58 | disposition home or self-care (01) ==
PROVIDERS: Emergency Provider Internal Medicine Critical Care Medicine; PCP Family Medicine
DX: G44.209 Tension-type headache, unspecified, not intractable (principal); M25.512 Pain in left shoulder; K21.9 Gastro-esophageal reflux disease without esophagitis; E03.9 Hypothyroidism, unspecified
CPT/HCPCS: 73030; 96372; 99283; A9270; J1885

== ENCOUNTER 2022-08-21 12:31 | Outpatient (CLI) | payer MEDICARE, SELFPAY ==
--- NOTE | ~2022-08-21 | MM_ITS ---
EXAMINATION: MM screening [facility] BI w ellie HISTORY: Screening mammogram, family history of breast cancer in her sister. TECHNIQUE: Craniocaudal and mediolateral oblique 3-D tomosynthesis images were obtained and synthetic 2-D images were generated. CAD analysis was submitted and interpreted. COMPARISON: 12/30/2012, 01/27/2012 BREAST PARENCHYMAL COMPOSITION: There are scattered areas of fibroglandular density. FINDINGS: No suspicious mass, calcification, or architectural distortion are identified in either joe ast to suggest malignancy. There has been no suspicious interval change. IMPRESSION: 1. No mammographic evidence of malignancy. 2. Recommend routine screening mammography in one year. BI-RADS Category 1: Negative Reviewed, dictated and finalized at location A.
--- NOTE | ~2022-08-21 | DEXA_ITS ---
Bone Density Report Name: MAGDALENO GARCIA Age: 66 Sex: Female Ethnicity: White Date of : 1955 Indication: hyperparathyroidism; history of glucocorticoids; prior fracture; Referring Provider: SERGIO, NOÉ Bernabe Study: Bone densitometry was performed. Exam Date: August 21, 2022 Accession number: [id number] Bone Density: Region BMD T-score Z-score Classification Femoral Neck (Left) 0.849 0.0 1.7 Normal Total Hip (Left) 0.744 -1.6 -0.2 Osteopenia Femoral Neck (Right) 0.538 -2.8 -1.1 Osteoporosis Total Hip (Right) 0.763 -1.5 -0.1 Osteopenia Femoral Neck Mean 0.693 -1.4 0.3 Osteopenia Total Hip Mean 0.753 -1.5 -0.2 Osteopenia World Health Organization criteria for BMD impression classify patients as: Normal (T-score at or above -1.0), Osteopenia (T-score between -1.0 and -2.5), or Osteoporosis (T-score at or below -2.5). 10-year Fracture Risk: FRAX not reported because: Some T-score for Spine Total or Hip Total or Femoral Neck at or below -2.5 Prior hip or vertebral fracture Clinical Information Provided by Patient: Have had a previous hip or vertebral fracture Has had a low trauma fracture Has taken Glucocorticoids Has used the following medications: Vitamin D, Calcium Has the following medical conditions: Hyperparathyroidism Patient maximum height was 61 Menopause Age: 34 Drinks caffeinated beverages Onset of menses at age 9 Number of children 3 Impression: The patient has established osteoporosis, based on the Right Femoral Neck T-score and the existence of a prior fracture. The patient has risk factors, including: previous fracture, history of glucocorticoid therapy. Discussion: HIGH RISK OF FRACTURE. BONE DENSITY IS UNDESIRABLY LOW AT ONE OR MORE SKELETAL SITES, CONSISTENT WITH POSTMENOPAUSAL OSTEOPOROSIS. This patient's lowest T-score, in a patient who has previously fractured, meets the World Health Organization's (WHO) criteria for severe osteoporosis. In untreated patients, the risk of osteoporotic fracture increases approximately two-fold for each 1.0 SD decrease in T-score. Low bone density is not the only risk factor for fracture; also consider factors such as patient's age, frailty or poor health, risk of falling, risk of injury, previous osteoporotic fracture, family history of osteoporosis, cigarette smoking, low body weight, etc. Not everyone with low bone mineral density has osteoporosis; osteomalacia and other metabolic bone disorders should also be considered. Patients who have osteoporosis should be evaluated for specific diseases and conditions (secondary causes) that may cause or contribute to bone loss. The [place] [employer]ocrin[employer] (AACE) and National Osteoporosis Foundation (NOF) recommend pharmacologic intervention for all postmenopausal wo
== END 2022-08-21 12:32 | disposition home or self-care (01) ==
LOC: CHSIMG 12:32
PROVIDERS: PCP Family Medicine; Visit Provider Family Medicine
DX: Z78.0 Asymptomatic menopausal state (principal); Z12.31 Encounter for screening mammogram for malignant neoplasm of breast
CPT/HCPCS: 77063; 77067; 77080

== ENCOUNTER 2022-11-17 20:42 | Emergency (ER) | payer MEDICARE, SELFPAY ==
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
[2022-11-17 21:00] VITALS: BP 131/99; PULSE 87; RESP 20; TEMP 36.8; O2SAT 98
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
[2022-11-17] MEDS: KETOROLAC (*BKC) 60 MG/2 ML VIAL IM (21:33)
[2022-11-17 22:48] VITALS: BP 139/86; PULSE 84; RESP 20; TEMP 36.6; O2SAT 98
== END 2022-11-17 22:54 | disposition home or self-care (01) ==
PROVIDERS: Emergency Provider Emergency Medicine
DX: S00.03XA Contusion of scalp, initial encounter (principal); M54.2 Cervicalgia; M25.519 Pain in unspecified shoulder; E03.9 Hypothyroidism, unspecified; F41.9 Anxiety disorder, unspecified; F32.A Depression, unspecified; Z79.1 Long term (current) use of non-steroidal anti-inflammatories (NSAID); Y04.2XXA Assault by strike against or bumped into by another person, initial encounter
CPT/HCPCS: 70450; 71046; 72125; 96372; 99284; J1885

== ENCOUNTER 2022-11-25 12:24 | Outpatient (CLI) | payer MEDICARE, SELFPAY ==
--- NOTE | ~2022-11-25 | XR_ITS ---
EXAMINATION: XR ribs RT 2V w CXR 2V DATE: 11/25/2022 13:03 INDICATION: Right rib pain. Injury. TECHNIQUE: Frontal and lateral views of the chest and 2 views on 3 radiographs of the right ribs were obtained. COMPARISON: Chest 2 views 11/17/2022 FINDINGS: CHEST TWO VIEWS: There is no pneumonia, pleural effusion, or pneumothorax. The heart size is normal. Epidural electrodes are noted. There is a left shoulder arthroplasty. Surgical clips in the right upp er quadrant are likely from cholecystectomy. RIGHT RIBS: There is no acute fracture. IMPRESSION: 1. No acute rib fracture. Reviewed, dictated and finalized at location A. ITECTURAL INTERN IMPRESSION: 1. No acute rib fracture.
== END 2022-11-25 12:25 | disposition home or self-care (01) ==
LOC: CHSIMG 12:25
PROVIDERS: PCP Family Medicine; Visit Provider Family Medicine
DX: R07.81 Pleurodynia (principal)
CPT/HCPCS: 71046; 71100

== ENCOUNTER 2023-06-10 11:22 | Outpatient (CLI) | payer MEDICARE, SELFPAY ==
--- NOTE | ~2023-06-10 | CT_ITS ---
EXAMINATION: CT abdomen pelvis w con DATE: 06/10/2023 12:45 INDICATION: Low abdominal pain. TECHNIQUE: Computed tomography (CT) of the abdomen and pelvis was performed with 100 mL Omnipaque 350 intravenous contrast. Automated exposure control and iterative reconstruction technique were employe d. The dose-length product was 334.55 mGy-cm. COMPARISON: CT pelvis 03/25/2022 FINDINGS: The visualized portions of the lung bases demonstrate mild atelectasis. No pleural effusion . The heart size is normal. No pericardial effusion. There are cysts in the liver measuring up to 1.8 cm. There are changes of cholecystectomy. The spleen, pancreas, and adrenal glands are normal. There is cortical thinning of the kidneys. There are no dilated loops of bowel. The appendix is normal. Th ere is mild aortic atherosclerosis. There are no pathologically enlarged lymph nodes. There is no nathan e intraperitoneal fluid. There are epidural electrodes in thoracic spine. There is severe lumbar spon dylosis. Lumbar levoscoliosis is noted. IMPRESSION: 1. No etiology for the patient's symptoms. Reviewed, dictated and finalized at location A.
[2023-06-10 11:51] LABS: Basophils Absolute Auto 0.02 K/mm3 (0.00-0.10); Basophils Percent Auto 0.3 % (0.0-1.0); Eosinophils Absolute Auto 0.21 K/mm3 (0.02-0.50); Eosinophils Percent Auto 3.6 % (1.0-6.0); Hematocrit 34.9 % (35.0-42.0); Hemoglobin 10.7 g/dL (11.7-13.8); Immature Granulocyte Absolute 0.03 K/mm3 (0.00-0.00); Immature Granulocyte Percent A 0.5 % (0.0-0.0); Lymphocytes Absolute Auto 1.17 K/mm3 (1.10-4.50); Lymphocytes Percent Auto 19.8 % (18.0-42.0); Mean Corpuscular HGB Conc 30.7 g/dL (32.0-36.0); Mean Corpuscular Hemoglobin 28.9 pg (27.0-31.0); Mean Corpuscular Volume 94.3 fL (78.0-102.0); Mean Platelet Volume 9.5 fl (9.2-11.8); Monocytes Absolute Auto 0.58 K/mm3 (0.10-0.90); Monocytes Percent Auto 9.8 % (2.0-11.0); Neutrophils Absolute Auto 3.9 K/mm3 (1.7-7.2); Platelet Count Result 328 K/mm3 (150-420); Red Cell Distribution Width 13.8 % (11.6-14.4); White Blood Count 5.9 K/mm3 (4.8-10.8)
[2023-06-10 11:53] LABS: Appearance Urine Clear (Clear); Bilirubin Urine Negative (Negative); Blood Urine Negative (Negative); Color Urine Light Yellow (Yellow); Glucose Urine UA Negative (Negative); Ketones Urine Negative (Negative); Leukocyte Esterase Ur 1+ (Negative); Nitrate Urine Negative (Negative); Protein Urine Negative (Negative); Specific Grav Ur 1.015 (1.010-1.020); Urobilinogen Urine 0.2 mg/dL (0.2-1.0); pH Urine 5.5 (5.0-8.0)
[2023-06-10 11:59] LABS: Add Urine Microscopic? YES; RBC Urine None seen /hpf (0-2); WBC Urine None seen /hpf (0-3)
[2023-06-10 12:00] LABS: Bacteria Urine Trace /hpf; Renal Epithelial Cells Urine Few /hpf; Squamous Epithelial Cell Urine Few /hpf (Few)
[2023-06-10 12:04] LABS: Prothrombin Time 10.5 Seconds (9.50-12.10)
[2023-06-10 12:07] LABS: Alanine Aminotransferase 8 U/L (14-59); Albumin Level 3.3 g/dL (3.4-5.0); Alkaline Phosphatase 130 U/L (46-116); Anion Gap 5 mmol/L (8-16); Aspartate Amino Transferase 14 U/L (15-37); Bilirubin,Total 0.3 mg/dL (0.00-1.00); Blood Urea Nitrogen 16 mg/dL (7-18); CRP 1.4 mg/dL (0.0-0.9); Carbon Dioxide 32 mmol/L (21-32); Chloride 104 mmol/L (98-108); Estimated Glomerular Filt Rate > 60; Glucose 84 mg/dL (70-99); Osmolality Calculated 292 mOsm/kg (285-295); Potassium 4.5 mmol/L (3.5-5.1); Sodium 141 mmol/L (136-145); Total Protein 6.6 g/dL (6.4-8.2)
[2023-06-10 12:10] LABS: Lactic Acid Reflex 0.5 mmol/L (0.4-2.0)
== END 2023-06-10 11:23 | disposition home or self-care (01) ==
LOC: CHSLAB 11:23
PROVIDERS: PCP Family Medicine; Visit Provider Family Medicine
DX: R10.9 Unspecified abdominal pain (principal)
CPT/HCPCS: 36415; 74177; 80053; 81001; 83605; 85025; 85610; 86140; Q9967

== ENCOUNTER 2023-07-09 10:56 | Emergency (ER) | payer MEDICARE, SELFPAY ==
--- NOTE | ~2023-07-09 | CT_ITS ---
EXAMINATION: CT abdomen pelvis w con DATE: 07/09/2023 12:13 INDICATION: Left lower quadrant abdominal pain. TECHNIQUE: Computed tomography (CT) of the abdomen and pelvis was performed with 100 mL Omnipaque 350 intravenous contrast. Automated exposure control and iterative reconstruction technique were employe d. The dose-length product was 273.70 mGy-cm. COMPARISON: CT abdomen and pelvis 06/10/2023 FINDINGS: The visualized portions of the lung bases demonstrate mild atelectasis. No pleural effusion . The heart size is normal. No pericardial effusion. There are cysts in the liver measuring up to 2.0 cm . There are changes of cholecystectomy. The spleen, pancreas, and adrenal glands are normal. Ther e is cortical thinning of the kidneys. Epidural electrodes are noted. There is diverticulosis of the colon without evidence of diverticulitis. There are no dilated loops of bowel. The appendix is normal . There are no pathologically enlarged lymph nodes. There is no free intraperitoneal fluid. There is lumbar levoscoliosis and severe spondylosis. IMPRESSION: 1. No etiology for the patient's symptoms. Reviewed, dictated and finalized at location A.
[2023-07-09 10:56] VITALS: BP 150/92; PULSE 84; RESP 20; TEMP 36.8; O2SAT 99
--- NOTE | 2023-07-09 10:58 | ED.ABDPAIN ---
HPI - Abdominal Pain General Chief Complaint: Abdominal Pain Stated Complaint: abdominal pain Time Seen by Provider: 07/09/23 10:57 Source: patient and RN notes reviewed Mode of arrival: ambulatory Limitations: no limitations History of Present Illness HPI narrative: patient was seen at her primary care physician office found have left lower quadrant abdominal pain. She was sent over for further evaluation and possible CT scan. PCP concerned about possibility severe diverticulitis. MD elicited complaint: abdominal pain Pertinent past history: none Onset (ago): day(s) (3) Pain Consistency: intermittent Location: LLQ Quality: cramping and stabbing Radiation: none Migration to: no migration Associated symptoms: nausea Related Data Home Medications Medication Instructions Recorded Confirmed cyclobenzaprine 10 mg tablet 10 mg PO PRN PRN Muscle Pain 11/17/22 11/17/22 gabapentin 400 mg capsule 400 mg PO TID 11/17/22 11/17/22 lidocaine 5 % topical patch See Rx Instructions .Route .COMPLEX 11/17/22 11/17/22 meloxicam 15 mg tablet 15 mg PO DAILY 11/17/22 11/17/22 Allergies Allergy/AdvReac Type Severity Reaction Status Date / Time Penicillins Allergy Severe anaphylaxis, Verified 07/09/23 10:08 hives Sulfa (Sulfonamide Allergy Mild Diarrhea Verified 07/09/23 10:08 Antibiotics) Review of Systems Review of Systems: All systems reviewed & are unremarkable except as noted in HPI and below PMFSH Past Medical History Medical History Chronic back pain Chronic pain Depression with anxiety GERD (gastroesophageal reflux disease) Hypothyroidism Insomnia Left shoulder pain Migraine Neck pain Preoperative clearance Rheumatoid arthritis Right knee pain Surgical History Surgical History H/O knee surgery left H/O knee surgery Total right knee replacement-AUG 27 H/O shoulder surgery left History of cholecystectomy Presence of neurostimulator Family History Family History Father CAD (coronary artery disease) Social History Social History Smoking status: Never smoker Second hand tobacco smoke exposure: Yes Alcohol intake: current Drinks per week: 1 Substance use: never Substance use type: does not use Living arrangements: alone Occupation/Education: unemployed Gender identity (if verbalized by the patient): Female Spiritual care concerns: No Exam Const: General: no acute distress, alert and ill appearing acutely Nutritional Appearance: well nourished Orientation/consciousness: patient oriented x3 Limitations: no limitations HENMT: Head: normal to inspection Ears: external ears normal Face/Nose/Sinus: Normal external nose present Face and sinus: normal facial exam Mouth: Yes moist mucous membranes Eyes: Conjunctivae: conjunctivae normal Pupils: Equal, round and reactive pupils present EOM: EOMs intact bilaterally Neck: Neck: normal visual inspection Resp: Effort & Inspection: normal respiratory effort Auscultation: clear to auscultation bilaterally Cardio: Rate: regular rate Rhythm: regular rhythm GI: GI Palp: Yes Soft to palpation Back/Spine/Pelvis: Cervical Spine: cervical ROM normal Thoracic/Lumbar Spine: thoraco-lumbar ROM normal Skin: General skin exam: normal color Rashes: no rashes Neuro: General: patient oriented x3, moves all extremities, no focal motor deficits and CN's II-XI intact bilaterally Speech: normal speech Gait exam (Neuro): Normal gait present Extrem: General: normal to inspection and no clubbing, cyanosis or edema Psych: Mental Status: mental status grossly normal Affect: normal affect Attitude: cooperative Course Vital Signs Vital signs: Vital Signs Temperature 36.8 C 07/09/23 10:56 Pulse Rate 84 07/09/23 10:56
[2023-07-09 11:39] LABS: Basophils Absolute Auto 0.02 K/mm3 (0.00-0.10); Basophils Percent Auto 0.3 % (0.0-1.0); Eosinophils Absolute Auto 0.33 K/mm3 (0.02-0.50); Eosinophils Percent Auto 4.7 % (1.0-6.0); Hematocrit 34.9 % (35.0-42.0); Immature Granulocyte Absolute 0.04 K/mm3 (0.00-0.00); Immature Granulocyte Percent A 0.6 % (0.0-0.0); Lymphocytes Absolute Auto 1.14 K/mm3 (1.10-4.50); Lymphocytes Percent Auto 16.1 % (18.0-42.0); Mean Corpuscular HGB Conc 31.5 g/dL (32.0-36.0); Mean Corpuscular Hemoglobin 29.3 pg (27.0-31.0); Mean Corpuscular Volume 92.8 fL (78.0-102.0); Mean Platelet Volume 8.9 fl (9.2-11.8); Monocytes Absolute Auto 0.59 K/mm3 (0.10-0.90); Monocytes Percent Auto 8.3 % (2.0-11.0); Platelet Count Result 282 K/mm3 (150-420); Red Blood Count 3.76 M/mm3 (4.20-5.40); Red Cell Distribution Width 14.5 % (11.6-14.4); White Blood Count 7.1 K/mm3 (4.8-10.8)
[2023-07-09] MEDS: ONDANSETRON INJ 4 MG/2 ML VIAL IV PUSH (11:43)
[2023-07-09 11:55] LABS: Alanine Aminotransferase 15 U/L (14-59); Albumin Level 3.4 g/dL (3.4-5.0); Alkaline Phosphatase 134 U/L (46-116); Anion Gap 2 mmol/L (8-16); Aspartate Amino Transferase 13 U/L (15-37); Bilirubin,Total 0.3 mg/dL (0.00-1.00); Blood Urea Nitrogen 11 mg/dL (7-18); Carbon Dioxide 33 mmol/L (21-32); Chloride 106 mmol/L (98-108); Estimated CRCL calculation 40 ml/min; Estimated Glomerular Filt Rate > 60; Glucose 86 mg/dL (70-99); Lipase 24 U/L (16-77); Osmolality Calculated 290 mOsm/kg (285-295); Potassium 4.5 mmol/L (3.5-5.1); Sodium 141 mmol/L (136-145); Total Protein 6.7 g/dL (6.4-8.2)
[2023-07-09 12:00] VITALS: BP 142/85; PULSE 67; RESP 20; O2SAT 97
[2023-07-09 12:00] LABS: Lactic Acid Reflex 0.5 mmol/L (0.4-2.0)
[2023-07-09 13:00] VITALS: BP 147/94; PULSE 64; RESP 20; TEMP 36.7; O2SAT 97
== END 2023-07-09 13:00 | disposition home or self-care (01) ==
PROVIDERS: Emergency Provider Emergency Medicine; PCP Family Medicine
DX: K57.92 Diverticulitis of intestine, part unspecified, without perforation or abscess without bleeding (principal); E03.9 Hypothyroidism, unspecified
CPT/HCPCS: 36415; 74177; 80053; 83605; 83690; 85025; 86140; 96374; 99284; J2405; Q9967

== ENCOUNTER 2023-07-27 15:59 | Emergency (ER) | payer MEDICARE, SELFPAY ==
--- NOTE | ~2023-07-27 | CT_ITS ---
EXAMINATION: CT brain wo con DATE: 07/27/2023 16:59 INDICATION: Dizziness. Headache. TECHNIQUE: Computed tomography (CT) of the head was performed without intravenous contrast. The mA wa s adjusted according to patient size. Iterative reconstruction technique was employed. The dose-lengt h product was 681.00 mGy-cm. COMPARISON: Head CT 11/17/2022 FINDINGS: There is no intracranial hemorrhage, acute infarction, or abnormal intracranial mass lesion . The ventricles are normal in size. There are likely changes of ocular lens replacement surgeries. T here is mucosal thickening in the paranasal sinuses. The mastoid air cells are normal. IMPRESSION: 1. Normal brain. Reviewed, dictated and finalized at location E. IMPRESSION: 1. Normal brain.
[2023-07-27 16:00] VITALS: BP 125/80; PULSE 68; RESP 19; TEMP 36.7; O2SAT 97
--- NOTE | 2023-07-27 16:16 | ED.DIZZY ---
HPI - Dizziness General Chief Complaint: Dizziness Stated Complaint: Dizziness Time Seen by Provider: 07/27/23 16:13 Source: patient Mode of arrival: ambulatory Limitations: no limitations History of Present Illness HPI Narrative: patient is a 67-year-old female who has some dizziness and elevated blood pressure and slight confusion today. She was sent from the primary doctor to be seen in the ER for evaluation. MD elicited complaint: dizziness Onset (ago): hour(s) Timing: gradual onset Severity: mild Description: off-balance Context: other ( Recent UTI in May) History of similar symptoms: Yes Exacerbating factors: nothing Relieving factors: nothing Associated symptoms: denies other symptoms Related Data Home Medications Medication Instructions Recorded Confirmed gabapentin 400 mg capsule 800 mg PO TID 11/17/22 07/27/23 meloxicam 15 mg tablet 15 mg PO DAILY 11/17/22 07/27/23 duloxetine 60 mg capsule,delayed 60 mg PO DAILY 07/27/23 07/27/23 release oxybutynin chloride 10 mg 10 mg PO DAILY 07/27/23 07/27/23 tablet,extended release 24 hr sumatriptan succinate 50 mg tablet 50 mg PO PRN PRN Migraine Headache 07/27/23 07/27/23 Allergies Allergy/AdvReac Type Severity Reaction Status Date / Time Penicillins Allergy Severe anaphylaxis, Verified 07/27/23 16:06 hives Sulfa (Sulfonamide Allergy Mild Diarrhea Verified 07/27/23 16:06 Antibiotics) Review of Systems Review of Systems: All systems reviewed & are unremarkable except as noted in HPI and below Constitutional: Constitutional: Reports no additional constitutional complaints Eyes: Eyes: Reports no additional eye complaints ENT: Reports system reviewed and no additional complaints, except as documented Cardiovascular: Cardiovascular: Reports no additional cardiovascular complaints Respiratory: Respiratory: Reports no additional respiratory complaints Gastrointestinal: Gastrointestinal: Reports no additional gastrointestinal complaints Genitourinary: Genitourinary: Reports no additional female genitourinary complaints Musculoskeletal: Musculoskeletal: Reports no additional musculoskeletal complaints Integumentary/Breasts: Skin/Breast: Reports system reviewed and no additional complaints, except as docu Neurologic: Reports system reviewed and no additional complaints, except as documented Psychiatric: Psychiatric: Reports no additional psychiatric complaints Endocrine: Endocrine: Reports no additional endocrine complaints Hematologic/Lymphatic: Hematologic/Lymphatic: Reports no additional hematologic/lymphatic complaints Allergic/Immunologic: Allergic/Immunologic: Reports no additional allergic/immunologic complaints PMFSH Past Medical History Medical History Chronic back pain Chronic pain Depression with anxiety GERD (gastroesophageal reflux disease) Hypothyroidism Insomnia Left shoulder pain Migraine Neck pain Preoperative clearance Rheumatoid arthritis Right knee pain Surgical History Surgical History H/O knee surgery left H/O knee surgery Total right knee replacement-AUG 27 H/O shoulder surgery left History of cholecystectomy Presence of neurostimulator Family History Family History Father CAD (coronary artery disease) Social History Social History Smoking status: Never smoker Second hand tobacco smoke exposure: Yes Alcohol intake: current Drinks per week: 1 Substance use: never Substance use type: does not use Living arrangements: alone Occupation/Education: unemployed Gender identity (if verbalized by the patient): Female Spiritual care concerns: No Exam Const: General: healthy appearing Nutritional Appearance: well nourished Orientation/consciousness: reginaldo
[2023-07-27 16:27] LABS: Appearance Urine Clear (Clear); Bilirubin Urine Negative (Negative); Blood Urine Trace-Intact (Negative); Color Urine Light Yellow (Yellow); Glucose Urine UA Negative (Negative); Ketones Urine Negative (Negative); Leukocyte Esterase Ur Negative LEU/UL (Negative); Nitrate Urine Negative (Negative); Protein Urine Negative (Negative); Urobilinogen Urine 0.2 mg/dL (0.2-1.0)
[2023-07-27 16:34] LABS: Add Urine Microscopic? YES; Bacteria Urine Trace /hpf; RBC Urine 0-2 /hpf (0-2); Squamous Epithelial Cell Urine Rare /hpf (Few); WBC Urine None seen /hpf (0-3)
--- NOTE | 2023-07-27 16:54 | ECG_ITS ---
Measurements Intervals [place] Rate: 55 P: 35 [place]: 185 QRS: 16 QRSD: 100 T: 46 QT: 397 QTc: 381 Interpretive Statements SINUS BRADYCARDIA COMPARED TO ECG 04/02/2020 21:17:55 NO SIGNIFICANT CHANGES Electronically Signed On 07-27-2023 18:52:03 CDT by Kortney Shine M.D.
[2023-07-27 17:18] LABS: Basophils Absolute Auto 0.02 K/mm3 (0.00-0.10); Basophils Percent Auto 0.3 % (0.0-1.0); Eosinophils Percent Auto 4.8 % (1.0-6.0); Hematocrit 32.7 % (35.0-42.0); Hemoglobin 10.3 g/dL (11.7-13.8); Immature Granulocyte Absolute 0.02 K/mm3 (0.00-0.00); Immature Granulocyte Percent A 0.3 % (0.0-0.0); Lymphocytes Absolute Auto 1.18 K/mm3 (1.10-4.50); Mean Corpuscular HGB Conc 31.5 g/dL (32.0-36.0); Mean Corpuscular Hemoglobin 29.1 pg (27.0-31.0); Mean Corpuscular Volume 92.4 fL (78.0-102.0); Mean Platelet Volume 9.5 fl (9.2-11.8); Monocytes Absolute Auto 0.61 K/mm3 (0.10-0.90); Monocytes Percent Auto 9.8 % (2.0-11.0); Neutrophils Absolute Auto 4.1 K/mm3 (1.7-7.2); Neutrophils Percent Auto 65.8 % (50.0-70.0); Platelet Count Result 337 K/mm3 (150-420); Red Blood Count 3.54 M/mm3 (4.20-5.40); Red Cell Distribution Width 14.6 % (11.6-14.4); White Blood Count 6.2 K/mm3 (4.8-10.8)
[2023-07-27 17:35] LABS: Alanine Aminotransferase 15 U/L (14-59); Albumin Level 3.6 g/dL (3.4-5.0); Alkaline Phosphatase 130 U/L (46-116); Anion Gap 6 mmol/L (8-16); Aspartate Amino Transferase 14 U/L (15-37); Bilirubin,Total 0.2 mg/dL (0.00-1.00); Blood Urea Nitrogen 21 mg/dL (7-18); Carbon Dioxide 30 mmol/L (21-32); Chloride 104 mmol/L (98-108); Estimated CRCL calculation 43 ml/min; Estimated Glomerular Filt Rate 59; Glucose 81 mg/dL (70-99); Osmolality Calculated 292 mOsm/kg (285-295); Potassium 4.3 mmol/L (3.5-5.1); Sodium 140 mmol/L (136-145); Total Protein 6.5 g/dL (6.4-8.2)
[2023-07-27 17:37] LABS: Troponin I 5.1 ng/L (0.00-60.4)
--- NOTE | 2023-07-27 17:44 | PC.NURSE ---
PT REPORTS SHE IS READY TO GO HOME ERP AT BEDSIDE DISCUSSING RESULTS AT THIS TIME. PT REPORTS DIZZINESS HAS RESOLVED AND HER ANXIETY HAS IMPROVED. PT REPORTS SHE WAS JUST WORRIED ABOUT HER BLOOD PRESSURE BEING ELEVATED. TO AWAIT DC.
[2023-07-27 17:58] VITALS: BP 128/72; PULSE 66; RESP 16; O2SAT 98
== END 2023-07-27 17:58 | disposition home or self-care (01) ==
PROVIDERS: Emergency Provider Emergency Medicine; PCP Family Medicine
DX: R42 Dizziness and giddiness (principal); E03.9 Hypothyroidism, unspecified; F41.8 Other specified anxiety disorders; K21.9 Gastro-esophageal reflux disease without esophagitis; M06.9 Rheumatoid arthritis, unspecified; M54.9 Dorsalgia, unspecified; G89.29 Other chronic pain; Z79.891 Long term (current) use of opiate analgesic
CPT/HCPCS: 36415; 70450; 80053; 81001; 84484; 85025; 93005; 99284

== ENCOUNTER 2023-09-22 10:50 | Outpatient (CLI) | payer MEDICARE, SELFPAY ==
[2023-09-22 11:12] LABS: Basophils Absolute Auto 0.01 K/mm3 (0.00-0.10); Basophils Percent Auto 0.2 % (0.0-1.0); Eosinophils Absolute Auto 0.18 K/mm3 (0.02-0.50); Eosinophils Percent Auto 3.1 % (1.0-6.0); Hemoglobin 11.5 g/dL (11.7-13.8); Immature Granulocyte Absolute 0.02 K/mm3 (0.00-0.00); Immature Granulocyte Percent A 0.3 % (0.0-0.0); Lymphocytes Absolute Auto 1.13 K/mm3 (1.10-4.50); Lymphocytes Percent Auto 19.4 % (18.0-42.0); Mean Corpuscular HGB Conc 32.9 g/dL (32.0-36.0); Mean Corpuscular Hemoglobin 29.7 pg (27.0-31.0); Mean Corpuscular Volume 90.4 fL (78.0-102.0); Mean Platelet Volume 9.2 fl (9.2-11.8); Monocytes Absolute Auto 0.61 K/mm3 (0.10-0.90); Monocytes Percent Auto 10.5 % (2.0-11.0); Neutrophils Absolute Auto 3.9 K/mm3 (1.7-7.2); Neutrophils Percent Auto 66.5 % (50.0-70.0); Platelet Count Result 390 K/mm3 (150-420); Red Blood Count 3.87 M/mm3 (4.20-5.40); Red Cell Distribution Width 13.9 % (11.6-14.4); White Blood Count 5.8 K/mm3 (4.8-10.8)
[2023-09-22 11:50] LABS: Alanine Aminotransferase 27 U/L (14-59); Albumin Level 4.1 g/dL (3.4-5.0); Alkaline Phosphatase 148 U/L (46-116); Anion Gap 10 mmol/L (8-16); Aspartate Amino Transferase 29 U/L (15-37); Bilirubin,Total 0.4 mg/dL (0.00-1.00); Blood Urea Nitrogen 29 mg/dL (7-18); Calcium 9.5 mg/dL (8.5-10.1); Carbon Dioxide 27 mmol/L (21-32); Chloride 104 mmol/L (98-108); Estimated Glomerular Filt Rate 50; Glucose 95 mg/dL (70-99); Osmolality Calculated 297 mOsm/kg (285-295); Potassium 4.7 mmol/L (3.5-5.1); Sodium 141 mmol/L (136-145)
[2023-09-22 11:55] LABS: Thyroid Stimulating Hormone Reflex 2.25 u/IU/mL (0.36-3.74)
[2023-09-24 15:25] LABS: H pylori, Urea Breath NOT DETECTED (NOT DETECTED)
== END 2023-09-22 10:51 | disposition home or self-care (01) ==
LOC: CHSLAB 10:52
PROVIDERS: PCP Nurse Practitioner Family; Visit Provider Nurse Practitioner Family
DX: R10.9 Unspecified abdominal pain (principal); F41.8 Other specified anxiety disorders; R19.7 Diarrhea, unspecified
CPT/HCPCS: 36415; 80053; 83013; 84443; 85025

== ENCOUNTER 2023-09-27 16:54 | Outpatient (CLI) | payer MEDICARE, SELFPAY ==
[2023-09-27 17:07] LABS: Appearance Urine Clear (Clear); Bilirubin Urine Negative (Negative); Blood Urine Negative (Negative); Color Urine Light Yellow (Yellow); Glucose Urine UA Negative (Negative); Ketones Urine Negative (Negative); Leukocyte Esterase Ur Negative (Negative); Nitrate Urine Negative (Negative); Protein Urine Negative (Negative); Urobilinogen Urine 0.2 mg/dL (0.2-1.0); pH Urine 6.5 (5.0-8.0)
[2023-09-27 17:23] LABS: Add Urine Microscopic? NO
== END 2023-09-27 16:55 | disposition home or self-care (01) ==
PROVIDERS: PCP Nurse Practitioner Family; Visit Provider Nurse Practitioner Family
DX: R19.7 Diarrhea, unspecified (principal)
CPT/HCPCS: 81003

== ENCOUNTER 2023-10-05 08:49 | Outpatient (CLI) | payer MEDICARE, SELFPAY ==
--- NOTE | ~2023-10-05 | CT_ITS ---
Non-contrast CT scan of the Abdomen and Pelvis Clinical indication: Pelvic pain Technique: 2.5 mm axial scans were obtained through the abdomen and pelvis without intravenous or or al contrast. Dose reduction technique was used on this scan by utilizing automated exposure control a nd iterative reconstruction technique. The dose-length product (DLP) was 318.89 mGy-cm. COMPARISON: 07/09/2023 Findings: Images through the lung bases reveal no abnormalities. There is no evidence of renal or ureteral calculi. The kidneys and the ureters are nondilated. Stable small hepatic cysts noted. Cholecystectomy clips are present. The spleen, pancreas, and adrena ls appear normal. There is no aortic aneurysm. There is no evidence of bowel obstruction. Prominent stool suggests constipation. Images through the pelvis were performed. There is trace pelvic ascites. Urinary bladder unremarkable . No pelvic mass seen. Impression: Trace pelvic free fluid, uncertain etiology/significance. Possible constipation. Reviewed, dictated and finalized at [facility]. [employer] Impression: Trace pelvic free fluid, uncertain etiology/significance. Possible constipation.
[2023-10-05 11:15] LABS: Hematocrit 38.3 % (35.0-42.0); Hemoglobin 12.3 g/dL (11.7-13.8); Immature Platelet Fraction Pct 1.7 % (1.0-7.0); Mean Corpuscular HGB Conc 32.1 g/dL (32.0-36.0); Mean Corpuscular Hemoglobin 29.6 pg (27.0-31.0); Mean Corpuscular Volume 92.1 fL (78.0-102.0); Mean Platelet Volume 8.8 fl (9.2-11.8); Platelet Count Result 515 K/mm3 (150-420); Red Blood Count 4.16 M/mm3 (4.20-5.40); Red Cell Distribution Width 13.6 % (11.6-14.4); White Blood Count 7.9 K/mm3 (4.8-10.8)
[2023-10-05 11:23] LABS: Add Urine Microscopic? YES; Appearance Urine Clear (Clear); Bilirubin Urine Negative (Negative); Blood Urine Negative (Negative); Color Urine Light Yellow (Yellow); Glucose Urine UA Negative (Negative); Ketones Urine Negative (Negative); Leukocyte Esterase Ur Trace (Negative); Nitrate Urine Negative (Negative); Protein Urine Negative (Negative); RBC Urine None seen /hpf (0-2); Squamous Epithelial Cell Urine Rare /hpf (Few); Urobilinogen Urine 0.2 mg/dL (0.2-1.0); WBC Urine None seen /hpf (0-3)
[2023-10-05 11:24] LABS: Bacteria Urine Trace /hpf; Renal Epithelial Cells Urine Rare /hpf
[2023-10-05 12:01] LABS: Alanine Aminotransferase 21 U/L (14-59); Albumin Level 3.9 g/dL (3.4-5.0); Alkaline Phosphatase 150 U/L (46-116); Anion Gap 4 mmol/L (8-16); Aspartate Amino Transferase 16 U/L (15-37); Bilirubin,Total 0.3 mg/dL (0.00-1.00); Blood Urea Nitrogen 14 mg/dL (7-18); Calcium 9.3 mg/dL (8.5-10.1); Carbon Dioxide 32 mmol/L (21-32); Chloride 101 mmol/L (98-108); Estimated Glomerular Filt Rate 58; Glucose 89 mg/dL (70-99); Osmolality Calculated 283 mOsm/kg (285-295); Potassium 4.8 mmol/L (3.5-5.1); Sodium 137 mmol/L (136-145)
[2023-10-05 12:02] LABS: CRP 2.3 mg/dL (0.0-0.9)
== END 2023-10-05 08:50 | disposition home or self-care (01) ==
PROVIDERS: PCP Family Medicine; Visit Provider Nurse Practitioner Family
DX: R10.9 Unspecified abdominal pain (principal); R10.32 Left lower quadrant pain
CPT/HCPCS: 36415; 74176; 80053; 81001; 85027; 85055; 86140

== ENCOUNTER 2023-11-11 14:02 | Outpatient (CLI) | payer MEDICARE, BC, MEDICAID, SELFPAY ==
--- NOTE | ~2023-11-11 | CT_ITS ---
EXAMINATION: CT brain wo con DATE: 11/11/2023 14:44 INDICATION: Fall 2 weeks ago. Struck posterior head. TECHNIQUE: Computed tomography (CT) of the head was performed without intravenous contrast. The mA wa s adjusted according to patient size. Iterative reconstruction technique was employed. Exam dose: 60 5.33 mGy-cm total exam DLP. COMPARISON: 08/23/2023 CT brain FINDINGS: Left vertebral artery stent is again noted. Bilateral carotid siphon internal carotid artery calcifications. No intracranial mass lesion or hemorrhage or cerebrovascular accident, midline shift or mass effect o r subdural or epidural hematoma is detected. No skull fracture or bone destruction is detected. The mastoid air cells and included paranasal sinus es are normally developed and aerated. IMPRESSION: No skull fracture or acute intracranial finding Reviewed, dictated and finalized at Location A. Reviewed, dictated and finalized at location L. [employer]
== END 2023-11-11 14:03 | disposition home or self-care (01) ==
PROVIDERS: PCP Family Medicine; Visit Provider Nurse Practitioner Family
DX: K21.9 Gastro-esophageal reflux disease without esophagitis (principal)
CPT/HCPCS: 70450

== ENCOUNTER 2023-12-06 12:58 | Outpatient (CLI) | payer MEDICARE, SELFPAY ==
[2023-12-06 13:15] LABS: Basophils Absolute Auto 0.02 K/mm3 (0.00-0.10); Basophils Percent Auto 0.2 % (0.0-1.0); Eosinophils Absolute Auto 0.14 K/mm3 (0.02-0.50); Eosinophils Percent Auto 1.6 % (1.0-6.0); Hematocrit 34.2 % (35.0-42.0); Hemoglobin 11.1 g/dL (11.7-13.8); Immature Granulocyte Absolute 0.02 K/mm3 (0.00-0.00); Immature Granulocyte Percent A 0.2 % (0.0-0.0); Lymphocytes Absolute Auto 1.27 K/mm3 (1.10-4.50); Lymphocytes Percent Auto 14.3 % (18.0-42.0); Mean Corpuscular HGB Conc 32.5 g/dL (32.0-36.0); Mean Corpuscular Hemoglobin 28.9 pg (27.0-31.0); Mean Corpuscular Volume 89.1 fL (78.0-102.0); Mean Platelet Volume 8.6 fl (9.2-11.8); Monocytes Percent Auto 6.7 % (2.0-11.0); Neutrophils Absolute Auto 6.9 K/mm3 (1.7-7.2); Platelet Count Result 363 K/mm3 (150-420); Red Blood Count 3.84 M/mm3 (4.20-5.40); Red Cell Distribution Width 13.5 % (11.6-14.4); White Blood Count 8.9 K/mm3 (4.8-10.8)
[2023-12-06 14:16] LABS: Alanine Aminotransferase 17 U/L (14-59); Albumin Level 3.6 g/dL (3.4-5.0); Alkaline Phosphatase 152 U/L (46-116); Anion Gap 10 mmol/L (8-16); Aspartate Amino Transferase 16 U/L (15-37); Bilirubin,Total 0.3 mg/dL (0.00-1.00); Blood Urea Nitrogen 13 mg/dL (7-18); Calcium 8.9 mg/dL (8.5-10.1); Carbon Dioxide 27 mmol/L (21-32); Chloride 99 mmol/L (98-108); Estimated Glomerular Filt Rate 59; Glucose 98 mg/dL (70-99); Lipase 40 U/L (16-77); Osmolality Calculated 282 mOsm/kg (285-295); Potassium 4.8 mmol/L (3.5-5.1); Sodium 136 mmol/L (136-145); Total Protein 6.6 g/dL (6.4-8.2); Vitamin B12 307 pg/mL (193-986)
[2023-12-06 14:19] LABS: Thyroid Stimulating Hormone Reflex 1.69 u/IU/mL (0.36-3.74)
[2023-12-08 16:07] LABS: RPR Screen Non-Reactive (Non-Reactive)
== END 2023-12-06 12:59 | disposition home or self-care (01) ==
LOC: CHSLAB 13:01
PROVIDERS: PCP Family Medicine
DX: E03.9 Hypothyroidism, unspecified (principal); E11.9 Type 2 diabetes mellitus without complications; K21.9 Gastro-esophageal reflux disease without esophagitis; R10.9 Unspecified abdominal pain; R41.3 Other amnesia; Z11.3 Encounter for screening for infections with a predominantly sexual mode of transmission
CPT/HCPCS: 36415; 80053; 82607; 83690; 84443; 85025; 86140; 86592

== ENCOUNTER 2024-01-05 16:39 | Outpatient (CLI) | payer MEDICARE, SELFPAY ==
--- NOTE | ~2024-01-05 | XR_ITS ---
XR abdomen/kub 1V 01/05/2024 17:16 Indication: Abdominal distention Procedure: KUB Comparison: 04/03/2020 Findings: Bowel gas pattern nonobstructive. Moderate colonic fecal loading. There are cholecystectomy clips. Severe lumbar spondylosis with levoscoliosis. Spinal stimulator leads are partially visualize d. There is moderate osteoarthritis of the hips. Impression: 1: Nonobstructive bowel gas pattern with moderate colonic fecal loading. Reviewed, dictated and finalized at location A. Impression: 1: Nonobstructive bowel gas pattern with moderate colonic fecal loading.
== END 2024-01-05 16:40 | disposition home or self-care (01) ==
LOC: ANHIMG 16:53
PROVIDERS: PCP Family Medicine; Visit Provider Nurse Practitioner Family
DX: R14.0 Abdominal distension (gaseous) (principal); K59.00 Constipation, unspecified
CPT/HCPCS: 74018

== ENCOUNTER 2024-01-27 00:40 | Day surgery (SDC) | payer MEDICARE, SELFPAY ==
[2024-01-17 10:08] VITALS: BMI 24.1
--- NOTE | 2024-01-18 14:28 | PC.NURSE ---
DUE TO PREVIOUS INFECTIONS WITH JOINT REPLACEMENTS ANTIBIOTICS ORDERED FOR PATIENT FOR DOS 01/27/2024
--- NOTE | 2024-01-27 08:49 | WPDANESEPPF ---
Anes - Initial Pre Proc Eval Procedure: Operation Date: 01/27/24 13:30 Proposed Procedures p Esophagogastroduodenoscopy & Colonoscopy - Rogelio Arnold MD Date/Time: 01/27/24 08:49 Surgeon: Rogelio Arnold MD Pre Op Diagnosis: abdominal pain,GERD,Dysphagia Patient Data Age: 68 Gender: F Height: 1.55 m Weight: 58 kg Allergies Allergy/AdvReac Type Severity Reaction Status Date / Time Penicillins Allergy Severe anaphylaxis, Verified 01/27/24 12:08 hives Sulfa (Sulfonamide Allergy Mild Diarrhea Verified 01/27/24 12:08 Antibiotics) Home Medications Medication Instructions Recorded Confirmed Type acetaminophen 325 mg capsule 650 mg PO Q8H PRN pain #20 caps 03/25/22 01/27/24 Rx (Tylenol) gabapentin 400 mg capsule 800 mg PO TID 11/17/22 01/27/24 History meloxicam 15 mg tablet 15 mg PO DAILY 11/17/22 01/27/24 History hydrocodone 5 mg-acetaminophen 325 1 tablet PO Q8H PRN pain #20 tabs 06/10/23 01/27/24 Rx mg tablet esomeprazole magnesium 40 mg See Rx Instructions .Route 06/25/23 01/27/24 Rx capsule,delayed release .COMPLEX #90 caps duloxetine 60 mg capsule,delayed 60 mg PO DAILY 07/27/23 01/27/24 History release sumatriptan succinate 50 mg tablet 50 mg PO PRN PRN Migraine Headache 07/27/23 01/27/24 History simethicone 80 mg chewable tablet 80 mg PO BID PRN abdominal 10/05/23 01/27/24 Rx (Gas Relief (simethicone)) distention #30 tabs polyethylene glycol 3350 17 17 g PO DAILY #238 grams 10/06/23 01/27/24 Rx gram/dose oral powder (Miralax) aspirin 81 mg capsule 81 mg PO DAILY 01/17/24 01/27/24 History oxybutynin chloride 10 mg 10 mg PO DAILY 01/17/24 01/27/24 History tablet,extended release 24 hr levothyroxine 50 mcg tablet 50 mcg PO DAILY #90 tabs 01/27/24 Rx dicyclomine 20 mg tablet See Rx Instructions .Route 02/10/24 Rx .COMPLEX #90 tabs Patient hx anesthesia problems: none Family hx anesthesia problems: none Results Review: All pre-operative results and documents have been reviewed as part of the pre-operative evaluation. [facility] Past Medical History Medical History (Updated 01/27/24 @ 13:23 by Rogelio Arnold MD) Chronic back pain Chronic pain Depression with anxiety Encounter for screening colonoscopy Family history of colon cancer Family history of colon cancer in mother GERD (gastroesophageal reflux disease) Hypothyroidism Insomnia Left shoulder pain Migraine Neck pain Preoperative clearance Rheumatoid arthritis Right knee pain Surgical History Surgical History H/O knee surgery left H/O knee surgery Total right knee replacement-AUG 27 H/O shoulder surgery left History of cholecystectomy Presence of neurostimulator Family History Family History Father CAD (coronary artery disease) Social History Social History Smoking status: Never smoker Second hand tobacco smoke exposure: Yes Alcohol intake: current Drinks per week: 1 Substance use: never Substance use type: does not use Living arrangements: alone Occupation/Education: unemployed Gender identity (if verbalized by the patient): Female Spiritual care concerns: No Anes - Eval Final PreProcedure Day of Procedure 01/27/24 08:49 Patient weight: normal Heart: regular rate and rhythm Lungs: clear to auscultation and normal air movement Airway: Mallampati scale class II Neurological: alert and oriented Last oral intake: >/= 8 hours ASA classification: III Emergent: no Anesthetic plan: proceed Anesthesia type and monitoring: general GIVS and standard monitoring Results Review: All pre-operative results and documents have been reviewed as part of the pre-operative evaluation. Informed Consent: The patient's anesthetic plan and its attendant risks and bene
[2024-01-27 12:14] VITALS: BP 142/75; PULSE 55; RESP 18; TEMP 36.6; O2SAT 100
[2024-01-27] MEDS: LACTATED RINGERS 1,000 ML 150 ML IV CONT (12:17)
[2024-01-27] MEDS: VANCOMYCIN 750 MG/NS 250 ML 750 MG/250 ML BAG 250 MG IVPB (12:18)
--- NOTE | 2024-01-27 13:22 | PM.HPGS ---
History of Present Illness History of Present Illness Consent: Risks, benefits, and alternatives have been discussed and questions answered. Patient agrees to proceed with procedure. Chief complaint: abdominal pain,GERD,Dysphagia Narrative: Joyce Benitez is a 68 year old female with gerd on nexium, intermittent dysphagia and bloating, also constipation from using narcotics also using relistor, last colonoscopy over 10 years ago, she has siblings with colon cancer. Review of Systems Review of Systems: All systems reviewed & are unremarkable except as noted in HPI and below PMFSH Past Medical History Medical History (Updated 01/27/24 @ 13:23 by Rogelio Arnold MD) Chronic back pain Chronic pain Depression with anxiety Encounter for screening colonoscopy Family history of colon cancer Family history of colon cancer in mother GERD (gastroesophageal reflux disease) Hypothyroidism Insomnia Left shoulder pain Migraine Neck pain Preoperative clearance Rheumatoid arthritis Right knee pain Surgical History Surgical History H/O knee surgery left H/O knee surgery Total right knee replacement-AUG 27 H/O shoulder surgery left History of cholecystectomy Presence of neurostimulator Family History Family History Father CAD (coronary artery disease) Social History Social History Smoking status: Never smoker Second hand tobacco smoke exposure: Yes Alcohol intake: current Drinks per week: 1 Substance use: never Substance use type: does not use Living arrangements: alone Occupation/Education: unemployed Gender identity (if verbalized by the patient): Female Spiritual care concerns: No Meds Home Medications and Allergies Home Medications Medication Instructions Recorded Confirmed Type acetaminophen 325 mg capsule 650 mg PO Q8H PRN pain #20 caps 03/25/22 01/27/24 Rx (Tylenol) gabapentin 400 mg capsule 800 mg PO TID 11/17/22 01/27/24 History meloxicam 15 mg tablet 15 mg PO DAILY 11/17/22 01/27/24 History hydrocodone 5 mg-acetaminophen 325 1 tablet PO Q8H PRN pain #20 tabs 06/10/23 01/27/24 Rx mg tablet esomeprazole magnesium 40 mg See Rx Instructions .Route 06/25/23 01/27/24 Rx capsule,delayed release .COMPLEX #90 caps duloxetine 60 mg capsule,delayed 60 mg PO DAILY 07/27/23 01/27/24 History release sumatriptan succinate 50 mg tablet 50 mg PO PRN PRN Migraine Headache 07/27/23 01/27/24 History simethicone 80 mg chewable tablet 80 mg PO BID PRN abdominal 10/05/23 01/27/24 Rx (Gas Relief (simethicone)) distention #30 tabs polyethylene glycol 3350 17 17 g PO DAILY #238 grams 10/06/23 01/27/24 Rx gram/dose oral powder (Miralax) dicyclomine 20 mg tablet See Rx Instructions .Route 01/14/24 01/27/24 Rx .COMPLEX #90 tabs aspirin 81 mg capsule 81 mg PO DAILY 01/17/24 01/27/24 History oxybutynin chloride 10 mg 10 mg PO DAILY 01/17/24 01/27/24 History tablet,extended release 24 hr levothyroxine 50 mcg capsule 50 mcg PO DAILY #90 caps 01/26/24 01/27/24 Rx Allergies Allergy/AdvReac Type Severity Reaction Status Date / Time Penicillins Allergy Severe anaphylaxis, Verified 01/27/24 12:08 hives Sulfa (Sulfonamide Allergy Mild Diarrhea Verified 01/27/24 12:08 Antibiotics) Exam Const: General: comfortable and no acute distress HENMT: Face/Nose/Sinus: Normal nares present Eyes: General: appearance normal, both eyes and all related structures Neck: Neck: no JVD Resp: Auscultation: clear to auscultation bilaterally Cardio: Rate: regular rate Rhythm: regular rhythm GI: Inspection: non-distended GI Palp: Yes Soft to palpation Skin: General skin exam: normal color Neuro: General: gait normal Speech: normal speech Extrem: General: normal to inspection Psych: Mental
--- NOTE | 2024-01-27 13:28 | SUR.OPER ---
EGD: START-1329 END-1333 COLON: START7 END- 1344
[2024-01-27 13:53] VITALS: BP 149/90; PULSE 65; RESP 20; O2SAT 98
[2024-01-27 14:03] VITALS: BP 160/88; PULSE 73; RESP 24; O2SAT 98
[2024-01-27 14:13] VITALS: BP 144/80; PULSE 73; RESP 22; O2SAT 99
== END 2024-01-27 14:30 | disposition home or self-care (01) ==
PROVIDERS: PCP Family Medicine; Visit Provider Internal Medicine Gastroenterology
PROC: 0DJ08ZZ Inspection of Upper Intestinal Tract, Via Natural or Artificial Opening Endoscopic (ICD-10-PCS; CPT 43235; principal; 2024-01-27 13:30)
DX: K29.50 Unspecified chronic gastritis without bleeding (principal); K21.9 Gastro-esophageal reflux disease without esophagitis; E03.9 Hypothyroidism, unspecified; G47.00 Insomnia, unspecified; G89.29 Other chronic pain; M54.9 Dorsalgia, unspecified; F41.8 Other specified anxiety disorders; Z79.891 Long term (current) use of opiate analgesic; Z79.82 Long term (current) use of aspirin; Z96.82 Presence of neurostimulator; Z90.49 Acquired absence of other specified parts of digestive tract; Z80.0 Family history of malignant neoplasm of digestive organs; Z82.49 Family history of ischemic heart disease and other diseases of the circulatory system
CPT/HCPCS: 43239; 45378; 88305; J2001; J2704; J3370; J7120

== ENCOUNTER 2024-02-23 08:31 | Emergency (ER) | payer MEDICARE, SELFPAY ==
[2024-02-23] VITALS (14 sets, daily range): BP systolic 111–180; BP diastolic 80–87; PULSE 61–83; RESP 20; TEMP 37.2; O2SAT 90–100
--- NOTE | ~2024-02-23 | CT_ITS ---
EXAMINATION: CT lumbar spine wo con DATE: 02/23/2024 10:37 INDICATION: Low back pain. TECHNIQUE: Computed tomography (CT) of the lumbar spine was performed without intravenous contrast. A utomated exposure control and iterative reconstruction technique were employed. The dose-length produ ct was 1225.89 mGy-cm. COMPARISON: None FINDINGS: There is 22 degrees levoscoliosis of lumbar spine. There is 3 mm anterolisthesis of L2 on L 3. There is mild chronic anterior wedging of L3 vertebral body. There is mildly decreased disc height L1-L2, severely decreased disc height from L2-L3 through L4-L5, and mildly decreased disc height at L5-S1. Partially visualized are epidural electrodes in thoracic spine. The following disc levels are specifically discussed: L1-L2: The disc is bulging. There is moderate bilateral facet joint osteoarthritis. There is moderate right and mild left neural foraminal stenosis. There is mild central canal stenosis. L2-L3: The disc is bulging. There is severe bilateral facet joint osteoarthritis. There is moderate r ight and mild left neural foraminal stenosis. There is mild central canal stenosis. L3-L4: The disc is bulging. There is severe bilateral facet joint osteoarthritis. There is moderate r ight and mild left neural foraminal stenosis. There is mild central canal stenosis with posterior dec ompression. L4-L5: The disc is bulging. There is severe bilateral facet joint osteoarthritis. There is moderate r ight and severe left neural foraminal stenosis. There is mild central canal stenosis with posterior d ecompression. L5-S1: The disc is bulging. There is severe bilateral facet joint osteoarthritis. There is moderate r ight and mild left neural foraminal stenosis. There is no central canal stenosis. IMPRESSION: 1. Severe lumbar spondylosis. 2. Lumbar levoscoliosis. Reviewed, dictated and finalized at location A.
--- NOTE | ~2024-02-23 | CT_ITS ---
EXAMINATION: CT femur LT wo con DATE: 02/23/2024 10:36 INDICATION: Left thigh pain and swelling. TECHNIQUE: Computed tomography (CT) of the left femur was performed without intravenous contrast. Aut omated exposure control and iterative reconstruction technique were employed. The dose-length product was 773.43 mGy-cm. COMPARISON: None FINDINGS: There is a total left knee arthroplasty with long femoral stem. There is a comminuted perip rosthetic fracture of midshaft of left femur. The main distal fracture fragment demonstrates 37 degre es posterior medial angulation. There is severe left hip osteoarthritis. IMPRESSION: 1. Comminuted periprosthetic fracture of midshaft of the left femur. 2. Severe left hip osteoarthritis. Reviewed, dictated and finalized at location A.
--- NOTE | 2024-02-23 09:32 | ED.BACK ---
HPI - Back Pain/Injury General Chief Complaint: Back Pain/Injury Stated Complaint: L LEG PAIN Time Seen by Provider: 02/23/24 09:08 Source: patient Mode of arrival: ambulatory Limitations: no limitations History of Present Illness HPI Narrative: 68-year-old female with a history of anxiety /depression, hepatic steatosis, Raynaud's, chronic neck/back pain, migraine, status post bilateral knee replacement, status post left shoulder surgery complicated by infection, status post left clavicular osteotomy, status post nerve stimulator in the spine, peripheral neuropathy,chronic abdominal pain / GERD/ dysphagia with negative EGD/ colonoscopy, hypothyroidism, rheumatoid arthritis, migraine, urinary incontinence presents to the ER with a 3 week history of -- low back pain which radiates down the left lower extremity up to the ankle. No numbness of the left lower extremity. -- left thigh pain which is tender to palpation. decreased range of motion of the left thigh and hip. -- chronic urinary incontinence No history of trauma no fever or chills The patient went to [facility] on 02/18/[address] scan of lumbar spine and of the pelvis which revealed levoscoliosis of the lumbar spine with multilevel severe neural foraminal stenosis status post decompressive laminectomy at L3/4. no acute fracture was noted. MD elicited complaint: back pain Pertinent past history: prior back pain Onset (ago): week(s) ( 3 weeks) Timing: constant Severity: moderate Similar Symptoms Previously: Yes Quality: aching Location: lumbar spine Radiation: other ( left thigh) Exacerbating factors: movement Relieving factors: immobilization Context: while lifting and turning/twisting Associated symptoms: difficulty walking, increased urinary urgency and increased urinary frequency Work related injury: No Related Data Home Medications Medication Instructions Recorded Confirmed gabapentin 400 mg capsule 800 mg PO TID 11/17/22 01/27/24 meloxicam 15 mg tablet 15 mg PO DAILY 11/17/22 01/27/24 duloxetine 60 mg capsule,delayed 60 mg PO DAILY 07/27/23 01/27/24 release sumatriptan succinate 50 mg tablet 50 mg PO PRN PRN Migraine Headache 07/27/23 01/27/24 aspirin 81 mg capsule 81 mg PO DAILY 01/17/24 01/27/24 oxybutynin chloride 10 mg 10 mg PO DAILY 01/17/24 01/27/24 tablet,extended release 24 hr Allergies Allergy/AdvReac Type Severity Reaction Status Date / Time Penicillins Allergy Severe anaphylaxis, Verified 01/27/24 12:08 hives Sulfa (Sulfonamide Allergy Mild Diarrhea Verified 01/27/24 12:08 Antibiotics) Review of Systems Review of Systems: All systems reviewed & are unremarkable except as noted in HPI and below PMFSH Past Medical History Medical History Chronic back pain Chronic pain Depression with anxiety Encounter for screening colonoscopy Family history of colon cancer Family history of colon cancer in mother GERD (gastroesophageal reflux disease) Hypothyroidism Insomnia Left shoulder pain Migraine Neck pain Preoperative clearance Rheumatoid arthritis Right knee pain Surgical History Surgical History H/O knee surgery left H/O knee surgery Total right knee replacement-AUG 27 H/O shoulder surgery left History of cholecystectomy Presence of neurostimulator Family History Family History Father CAD (coronary artery disease) Social History Social History Smoking status: Never smoker Second hand tobacco smoke exposure: Yes Alcohol intake: current Drinks per week: 1 Substance use: never Substance use type: does not use Living arrangements: alone Occupation/Education: unemployed Gender identity (if verbalized by the patient): Female Spiritual care concerns: No
--- NOTE | 2024-02-23 09:58 | PC.NURSE ---
call to daughter , pt concerned about house not being locked.
--- NOTE | 2024-02-23 09:59 | PC.NURSE ---
pt resting per cot, call lane in reach.
[2024-02-23] MEDS: HYDROmorphone HCL INJ (*CRX) 2 MG/ML VIAL 0.5 MG IV PUSH ×2 (10:36→12:59)
[2024-02-23] MEDS: ONDANSETRON INJ 4 MG/2 ML VIAL IV PUSH (10:37)
[2024-02-23 10:46] LABS: Basophils Absolute Auto 0.02 K/mm3 (0.00-0.10); Basophils Percent Auto 0.2 % (0.0-1.0); Eosinophils Absolute Auto 0.24 K/mm3 (0.02-0.50); Eosinophils Percent Auto 2.3 % (1.0-6.0); Hematocrit 35.6 % (35.0-42.0); Hemoglobin 11.6 g/dL (11.7-13.8); Immature Granulocyte Absolute 0.05 K/mm3 (0.00-0.00); Immature Granulocyte Percent A 0.5 % (0.0-0.0); Lymphocytes Absolute Auto 1.37 K/mm3 (1.10-4.50); Lymphocytes Percent Auto 13.4 % (18.0-42.0); Mean Corpuscular HGB Conc 32.6 g/dL (32-36); Mean Corpuscular Hemoglobin 29.5 pg (27.0-31.0); Mean Corpuscular Volume 90.6 fL (78.0-102.0); Mean Platelet Volume 8.7 fl (9.2-11.8); Monocytes Absolute Auto 0.63 K/mm3 (0.10-0.90); Monocytes Percent Auto 6.2 % (2.0-11.0); Neutrophils Absolute Auto 7.91 K/mm3 (1.70-7.20); Neutrophils Percent Auto 77.4 % (50.0-70.0); Platelet Count Result 419 K/mm3 (150-420); Red Blood Count 3.93 M/mm3 (4.20-5.40); Red Cell Distribution Width 13.8 % (11.6-14.4); White Blood Count 10.2 K/mm3 (4.8-10.8)
[2024-02-23 11:04] LABS: Alanine Aminotransferase 18 U/L (14-59); Albumin Level 3.6 g/dL (3.4-5.0); Alkaline Phosphatase 126 U/L (46-116); Anion Gap 9 mmol/L (4-12); Aspartate Amino Transferase 19 U/L (15-37); Bilirubin,Total 0.3 mg/dL (0.00-1.00); Blood Urea Nitrogen 20 mg/dL (7-18); Carbon Dioxide 28 mmol/L (21-32); Chloride 104 mmol/L (98-108); Creatine Kinase 55 U/L (26-192); Estimated CRCL calculation 35 ml/min; Estimated Glomerular Filt Rate 45; Glucose 95 mg/dL (70-99); Lipase 41 U/L (16-77); Osmolality Calculated 294 mOsm/kg (285-295); Potassium 4.7 mmol/L (3.5-5.1); Sodium 141 mmol/L (136-145); Total Protein 6.8 g/dL (6.4-8.2)
[2024-02-23 11:07] LABS: Lactic Acid Reflex 1.1 mmol/L (0.4-2.0)
[2024-02-23 11:09] LABS: Calcium 9.5 mg/dL (8.5-10.1)
[2024-02-23] MEDS: LACTATED RINGERS 1,000 ML 150 ML IV CONT (12:05)
--- NOTE | 2024-02-23 13:18 | PC.NURSE ---
1310 pt transferred to ems cot, 2 ems and this RN. tolerated well. report to [place], all questions answered. pt departed, appreciative of all care.
== END 2024-02-23 13:16 | disposition short-term general hospital (02) ==
PROVIDERS: Emergency Provider Internal Medicine Critical Care Medicine; PCP Family Medicine
DX: S72.352A Displaced comminuted fracture of shaft of left femur, initial encounter for closed fracture (principal); N17.9 Acute kidney failure, unspecified; M54.50 Low back pain, unspecified; T14.90XA Injury, unspecified, initial encounter; K21.9 Gastro-esophageal reflux disease without esophagitis; M06.9 Rheumatoid arthritis, unspecified; Z79.82 Long term (current) use of aspirin; Z96.653 Presence of artificial knee joint, bilateral; E03.9 Hypothyroidism, unspecified; F41.8 Other specified anxiety disorders
CPT/HCPCS: 36415; 72131; 73700; 80053; 82550; 83605; 83690; 85025; 96361; 96374; 96375; 96376; 99285; J1170; J2405; J7120

== ENCOUNTER 2024-05-25 12:00 | Outpatient (CLI) | payer MEDICARE, SELFPAY ==
--- NOTE | 2024-05-25 12:01 | ECG_ITS ---
Test Date: 2024-05-25 12:48:12 Measurements Intervals [place] Rate: 52 P: 67 LA: 206 QRS: 70 QRSD: 99 T: 75 QT: 419 QTc: 392 Interpretive Statements SINUS BRADYCARDIA OTHERWISE NORMAL ECG No previous ECG available for comparison Electronically Signed On 05-26-2024 11:39:51 CDT by Uli Laureano M.D.
[2024-05-25 12:24] LABS: Basophils Absolute Auto 0.01 K/mm3 (0.00-0.10); Basophils Percent Auto 0.2 % (0.0-1.0); Eosinophils Absolute Auto 0.24 K/mm3 (0.02-0.50); Eosinophils Percent Auto 4.3 % (1.0-6.0); Hematocrit 32.3 % (35.0-42.0); Hemoglobin 10.7 g/dL (11.7-13.8); Immature Granulocyte Absolute 0.03 K/mm3 (0.00-0.00); Immature Granulocyte Percent A 0.5 % (0.0-0.0); Lymphocytes Absolute Auto 1.08 K/mm3 (1.10-4.50); Lymphocytes Percent Auto 19.3 % (18.0-42.0); Mean Corpuscular HGB Conc 33.1 g/dL (32-36); Mean Corpuscular Hemoglobin 30.7 pg (27.0-31.0); Mean Corpuscular Volume 92.6 fL (78.0-102.0); Mean Platelet Volume 8.5 fl (9.2-11.8); Monocytes Absolute Auto 0.47 K/mm3 (0.10-0.90); Monocytes Percent Auto 8.4 % (2.0-11.0); Neutrophils Absolute Auto 3.77 K/mm3 (1.70-7.20); Neutrophils Percent Auto 67.3 % (50.0-70.0); Platelet Count Result 315 K/mm3 (150-420); Red Blood Count 3.49 M/mm3 (4.20-5.40); Red Cell Distribution Width 13.1 % (11.6-14.4); White Blood Count 5.6 K/mm3 (4.8-10.8)
[2024-05-25 12:38] LABS: Prothrombin Time 10.7 Seconds (9.50-12.1)
[2024-05-25 13:13] LABS: Alanine Aminotransferase 15 U/L (14-59); Albumin Level 3.4 g/dL (3.4-5.0); Alkaline Phosphatase 169 U/L (46-116); Anion Gap 9 mmol/L (4-12); Aspartate Amino Transferase 17 U/L (15-37); Bilirubin,Total 0.2 mg/dL (0.00-1.00); Blood Urea Nitrogen 13 mg/dL (7-18); Calcium 8.8 mg/dL (8.5-10.1); Carbon Dioxide 28 mmol/L (21-32); Chloride 103 mmol/L (98-108); Estimated Glomerular Filt Rate 42; Glucose 78 mg/dL (70-99); Osmolality Calculated 289 mOsm/kg (285-295); Potassium 4.4 mmol/L (3.5-5.1); Sodium 140 mmol/L (136-145)
[2024-05-25 13:30] LABS: Thyroid Stimulating Hormone Reflex 2.11 u/IU/mL (0.36-3.74)
== END 2024-05-25 12:01 | disposition home or self-care (01) ==
LOC: CHSLAB 12:01
PROVIDERS: PCP Family Medicine; Visit Provider Family Medicine
DX: Z01.818 Encounter for other preprocedural examination (principal); R10.9 Unspecified abdominal pain; E03.9 Hypothyroidism, unspecified; R00.1 Bradycardia, unspecified
CPT/HCPCS: 36415; 80053; 84443; 85025; 85610; 93005

== ENCOUNTER 2024-06-07 14:44 | Outpatient (CLI) | payer MEDICARE, SELFPAY ==
--- NOTE | ~2024-06-07 | XR_ITS ---
EXAMINATION: XR abdomen obstructive series DATE: 06/07/2024 15:26 INDICATION: Abdominal distention TECHNIQUE: Supine and upright views of the abdomen. FINDINGS: Comparison to 01/05/2024 The visualized lung parenchyma is normal.. There is a nonobstructive bowel gas pattern. There is mode rate colonic fecal impaction of the colon. Spinal stimulator leads are stable. There are cholecystect luh clips. Gas and stool are seen throughout the colon to the level of the rectum. There is no free air. IMPRESSION: 1. Fecal impaction in the colon. Reviewed, dictated and finalized at location B.
[2024-06-07 15:01] LABS: Basophils Absolute Auto 0.02 K/mm3 (0.00-0.10); Basophils Percent Auto 0.2 % (0.0-1.0); Eosinophils Absolute Auto 0.35 K/mm3 (0.02-0.50); Eosinophils Percent Auto 4.2 % (1.0-6.0); Hematocrit 32.4 % (35.0-42.0); Hemoglobin 10.6 g/dL (11.7-13.8); Immature Granulocyte Absolute 0.03 K/mm3 (0.00-0.00); Immature Granulocyte Percent A 0.4 % (0.0-0.0); Lymphocytes Absolute Auto 1.37 K/mm3 (1.10-4.50); Lymphocytes Percent Auto 16.5 % (18.0-42.0); Mean Corpuscular HGB Conc 32.7 g/dL (32-36); Mean Corpuscular Hemoglobin 30.1 pg (27.0-31.0); Mean Platelet Volume 8.9 fl (9.2-11.8); Monocytes Absolute Auto 0.74 K/mm3 (0.10-0.90); Monocytes Percent Auto 8.9 % (2.0-11.0); Neutrophils Absolute Auto 5.79 K/mm3 (1.70-7.20); Neutrophils Percent Auto 69.8 % (50.0-70.0); Platelet Count Result 411 K/mm3 (150-420); Red Blood Count 3.52 M/mm3 (4.20-5.40); White Blood Count 8.3 K/mm3 (4.8-10.8)
[2024-06-07 15:03] LABS: Add Urine Microscopic? NO; Appearance Urine Clear (Clear); Bilirubin Urine Negative (Negative); Blood Urine Negative (Negative); Color Urine Yellow (Yellow); Glucose Urine UA Negative (Negative); Ketones Urine Negative (Negative); Leukocyte Esterase Ur Negative LEU/UL (Negative); Nitrate Urine Negative (Negative); Protein Urine Negative (Negative); Specific Grav Ur <= 1.005 (1.010-1.020); Urobilinogen Urine 0.2 mg/dL (0.2-1.0)
[2024-06-07 15:52] LABS: Alanine Aminotransferase 14 U/L (14-59); Albumin Level 3.6 g/dL (3.4-5.0); Alkaline Phosphatase 173 U/L (46-116); Amylase 30 U/L (25-115); Anion Gap 5 mmol/L (4-12); Aspartate Amino Transferase 17 U/L (15-37); Bilirubin,Total 0.3 mg/dL (0.00-1.00); Blood Urea Nitrogen 13 mg/dL (7-18); CRP 1.1 mg/dL (0.0-0.9); Calcium 9.1 mg/dL (8.5-10.1); Carbon Dioxide 30 mmol/L (21-32); Chloride 99 mmol/L (98-108); Cholesterol 138 mg/dL (0-200); Estimated Glomerular Filt Rate 49; Ferritin 49 ng/mL (8-252); Folic Acid 5.5 ng/mL (8.6->20); Glucose 84 mg/dL (70-99); HDL Direct 36 mg/dL (40-60); Iron 56 ug/dL (50-170); LDL Cholesterol Calculated 78 mg/dL (<130); Lipase 25 U/L (16-77); Osmolality Calculated 277 mOsm/kg (285-295); Percent Iron Saturation 17 % (12-57); Potassium 4.7 mmol/L (3.5-5.1); Sodium 134 mmol/L (136-145); Total Protein 6.2 g/dL (6.4-8.2); Triglycerides 122 mg/dL (0-150); Vitamin B12 651 pg/mL (193-986)
[2024-06-07 19:10] VITALS: BP 101/62; PULSE 73; RESP 16; TEMP 36.8; O2SAT 97
[2024-06-07 20:10] VITALS: BP 127/80; PULSE 66; RESP 16; TEMP 36.8; O2SAT 100
--- NOTE | 2024-06-07 20:49 | PC.NURSE ---
1910 Patient up to floor and placed in room 226. Patient asked name, birthdate, and verbal consent for procedure. Patient placed on her left side. Was able to take 500ml of SSE solution. Patient able to hold fluids for approximately 7 minutes then was up to bedside commode. Patient had a large BM of large balls of stool. Patient stated she felt better and wasn't able to do procedure again tonight.
--- NOTE | 2024-06-07 20:54 | PC.NURSE ---
2014 Patient states she feels much better. Patient instructed on constipation and p.o. water intake. Patient stated understanding. Patient instructed on laxative use. Patient states understanding. Nurse assisted patient with redressing lower body and getting into electric wheelchair. Patient able to self propel wheelchair and met daughter downstairs for ride home. Patient tolerated well.
--- NOTE | 2024-06-07 21:01 | PC.NURSE ---
Patient out at 2014.
[2024-06-08 09:53] LABS: Vitamin D 25 Hydroxy 38 ng/mL (30-100)
== END 2024-06-07 14:45 | disposition home or self-care (01) ==
PROVIDERS: PCP Nurse Practitioner Family; Visit Provider Nurse Practitioner Family
DX: K14.6 Glossodynia (principal); R10.9 Unspecified abdominal pain; R14.0 Abdominal distension (gaseous); R79.89 Other specified abnormal findings of blood chemistry; R53.83 Other fatigue; M06.9 Rheumatoid arthritis, unspecified; Z79.899 Other long term (current) drug therapy; K56.41 Fecal impaction
CPT/HCPCS: 36415; 74019; 80053; 80061; 81003; 82150; 82306; 82607; 82728; 82746; 83540; 83550; 83690; 85025; 86140

== ENCOUNTER 2024-06-15 13:43 | Inpatient (IN) | payer MEDICARE, SELFPAY ==
--- NOTE | ~2024-06-15 | CT_ITS ---
EXAMINATION: CT abdomen pelvis wo con DATE: 06/15/2024 14:20 INDICATION: Generalized abdominal pain. Nausea. TECHNIQUE: Computed tomography (CT) of the abdomen and pelvis was performed without intravenous contr ast. Automated exposure control and iterative reconstruction technique were employed. The dose-length product was 257.50 mGy-cm. COMPARISON: CT abdomen and pelvis 10/05/2023 FINDINGS: The visualized portions of the lung bases are clear without pneumonia or pleural effusion. The heart size is normal. No pericardial effusion. There are cysts in the liver measuring up to 17 mm . There are changes of cholecystectomy. The spleen, pancreas, adrenal glands, and kidneys are normal. There is no urolithiasis. The appendix is normal. There are mildly dilated loops of small bowel. The re is no free intraperitoneal fluid. There is internal fixation of left femur. Epidural electrodes ar e noted. There is lumbar levoscoliosis and severe spondylosis. IMPRESSION: 1. Mildly dilated loops of small bowel without focal transition point, consistent with adynamic ileus versus partial small bowel obstruction. Reviewed, dictated and finalized at location A. IMPRESSION: 1. Mildly dilated loops of small bowel without focal transition point, consiste nt with adynamic ileus versus partial small bowel obstruction.
[2024-06-15 13:44] VITALS: BP 112/89; PULSE 62; RESP 22; TEMP 36.3; O2SAT 98
[2024-06-15] MEDS: KETOROLAC 30 MG/ML VIAL (*BKC) IM (14:33)
[2024-06-15 14:46] LABS: Basophils Absolute Auto 0.02 K/mm3 (0.00-0.10); Basophils Percent Auto 0.3 % (0.0-1.0); Eosinophils Absolute Auto 0.22 K/mm3 (0.02-0.50); Hematocrit 32.7 % (35.0-42.0); Hemoglobin 10.7 g/dL (11.7-13.8); Immature Granulocyte Absolute 0.02 K/mm3 (0.00-0.00); Immature Granulocyte Percent A 0.3 % (0.0-0.0); Lymphocytes Absolute Auto 1.01 K/mm3 (1.10-4.50); Lymphocytes Percent Auto 13.6 % (18.0-42.0); Mean Corpuscular HGB Conc 32.7 g/dL (32-36); Mean Corpuscular Volume 91.6 fL (78.0-102.0); Mean Platelet Volume 9.2 fl (9.2-11.8); Monocytes Absolute Auto 0.54 K/mm3 (0.10-0.90); Monocytes Percent Auto 7.3 % (2.0-11.0); Neutrophils Absolute Auto 5.62 K/mm3 (1.70-7.20); Neutrophils Percent Auto 75.5 % (50.0-70.0); Platelet Count Result 396 K/mm3 (150-420); Red Blood Count 3.57 M/mm3 (4.20-5.40); Red Cell Distribution Width 12.9 % (11.6-14.4); White Blood Count 7.4 K/mm3 (4.8-10.8)
[2024-06-15 15:00] LABS: Albumin Level 3.3 g/dL (3.4-5.0); Alkaline Phosphatase 166 U/L (46-116); Anion Gap 7 mmol/L (4-12); Aspartate Amino Transferase 17 U/L (15-37); Bilirubin,Total 0.3 mg/dL (0.00-1.00); Blood Urea Nitrogen 11 mg/dL (7-18); Calcium 8.9 mg/dL (8.5-10.1); Carbon Dioxide 28 mmol/L (21-32); Chloride 102 mmol/L (98-108); Estimated CRCL calculation 35 ml/min; Estimated Glomerular Filt Rate 54; Glucose 79 mg/dL (70-99); Lipase 24 U/L (16-77); Osmolality Calculated 282 mOsm/kg (285-295); Potassium 4.6 mmol/L (3.5-5.1); Sodium 137 mmol/L (136-145); Total Protein 6.4 g/dL (6.4-8.2)
[2024-06-15 15:01] LABS: Partial Thromboplastin Time 29.3 Sec (23.9-30.70); Prothrombin Time 10.9 Seconds (9.50-12.1)
[2024-06-15 15:08] LABS: Lactic Acid Reflex 0.9 mmol/L (0.4-2.0)
[2024-06-15 15:23] LABS: Thyroid Stimulating Hormone 1.73 uIU/mL (0.36-3.74)
[2024-06-15] MEDS: SODIUM CHLORIDE 0.9% IV 1,000 ML 999 ML IV CONT (15:28)
[2024-06-15] MEDS: ONDANSETRON INJ 4 MG/2 ML VIAL IV PUSH ×2 (15:29→18:13)
[2024-06-15] MEDS: MORPHINE SULFATE (*CRX) 2 MG/ML INJ IV PUSH ×3 (15:29→21:07)
[2024-06-15 15:35] LABS: Alanine Aminotransferase < 6 U/L (14-59)
--- NOTE | 2024-06-15 15:40 | ED.ABDPAIN ---
HPI - Abdominal Pain General Chief Complaint: Abdominal Pain Stated Complaint: abdominal and flank pain Time Seen by Provider: 06/15/24 13:48 Source: patient Mode of arrival: ambulatory Limitations: no limitations History of Present Illness HPI narrative: this is a 68-year-old female with a history of hypothyroidism chronic pain currently on hydrocodone had obstructive series approximately 1 week ago that showed fecal impaction, patient says that she has had a bowel movement currently not nauseated or vomiting but having diffuse abdominal pain that is been going on for the last 2 to 3 days diffuse with no dysuria no hematuria no flank pain no fever chills. Denies chest pain or shortness of breath. MD elicited complaint: abdominal pain Onset (ago): day(s) Pain Consistency: constant Location: diffuse Severity: moderate Pain scale (0-10): 7 Quality: cramping and aching Related Data Home Medications Medication Instructions Recorded Confirmed gabapentin 400 mg capsule 800 mg PO TID 11/17/22 06/15/24 dicyclomine 10 mg capsule 10 mg PO BID PRN Mouth Pain 06/07/24 06/15/24 esomeprazole magnesium 40 mg 40 mg PO DAILY 06/07/24 06/15/24 capsule,delayed release fluticasone propionate 50 2 spray intranasal DAILY 06/07/24 06/15/24 mcg/actuation nasal spray,suspension levothyroxine 50 mcg tablet 50 mcg PO DAILY 06/07/24 06/15/24 hydrocodone 7.5 mg-acetaminophen 1 tablet PO Q6H PRN Pain 06/15/24 06/15/24 325 mg tablet ondansetron 8 mg disintegrating 8 mg PO Q8H PRN Nausea 06/15/24 06/15/24 tablet Allergies Allergy/AdvReac Type Severity Reaction Status Date / Time Penicillins Allergy Severe anaphylaxis, Verified 06/15/24 14:22 hives Sulfa (Sulfonamide Allergy Mild Diarrhea Verified 06/15/24 14:22 Antibiotics) Review of Systems Review of Systems: All systems reviewed & are unremarkable except as noted in HPI and below PMFSH Past Medical History Medical History Chronic back pain Chronic pain Daytime somnolence Depression with anxiety Encounter for screening colonoscopy Family history of colon cancer Family history of colon cancer in mother GERD (gastroesophageal reflux disease) Hypothyroidism Insomnia Left shoulder pain Migraine Neck pain Preoperative clearance Rheumatoid arthritis Right knee pain Surgical History Surgical History H/O knee surgery left H/O knee surgery Total right knee replacement-AUG 27 H/O shoulder surgery left History of cholecystectomy Presence of neurostimulator Family History Family History Father CAD (coronary artery disease) Social History Social History Smoking status: Never smoker Second hand tobacco smoke exposure: Yes Alcohol intake: current Drinks per week: 1 Substance use: never Substance use type: does not use Living arrangements: alone Occupation/Education: unemployed Gender identity (if verbalized by the patient): Female Spiritual care concerns: No Exam Const: General: no acute distress Nutritional Appearance: well nourished Orientation/consciousness: patient oriented x3 Limitations: no limitations Eyes: Conjunctivae: conjunctivae normal Neck: Neck: normal visual inspection Chest: Chest palpation & inspection: normal inspection of the chest Resp: Effort & Inspection: normal respiratory effort Cardio: Rate: regular rate Rhythm: regular rhythm GI: GI Palp: Yes Soft to palpation and Yes Tenderness to palpation present (GI) Auscultation: normal bowel sounds : General: Yes bladder normal to palpation Urinary Catheter: Urinary Catheter: patent and draining Skin: General skin exam: normal color Rashes: no rashes Neuro: General: patient oriented x3, moves all extremities, no meningeal s
[2024-06-15 15:58] LABS: Add Urine Microscopic? NO; Appearance Urine Clear (Clear); Bilirubin Urine Negative (Negative); Blood Urine Negative (Negative); Color Urine Light Yellow (Yellow); Glucose Urine UA Negative (Negative); Ketones Urine Negative (Negative); Leukocyte Esterase Ur Negative LEU/UL (Negative); Nitrate Urine Negative (Negative); Protein Urine Negative (Negative); Urobilinogen Urine 0.2 mg/dL (0.2-1.0); pH Urine 7.5 (5.0-8.0)
[2024-06-15 17:04] VITALS: PULSE 75; RESP 24; O2SAT 95
[2024-06-15 17:21] VITALS: BP 132/83; PULSE 60; RESP 18; TEMP 36.8; O2SAT 97
[2024-06-15 17:28] VITALS: BMI 23.3
[2024-06-15 17:30] VITALS: BP 115/73; PULSE 74; RESP 24; TEMP 35.9; O2SAT 95
--- NOTE | 2024-06-15 17:30 | ADMGEN ---
This patient, Joyce Benitez, was admitted to 2nd Floor Room 203-1. Patient/family oriented to hospital policies and general routines including ID bracelet, bed and alarms, visiting hours, pain management, procedures, bathroom and other care routines, personal items, smoking policy, room service/diet, and visiting hours. Information on how to activate the Rapid Response Team has been discussed. Patient/Family are encouraged to report perceived risks to care and to ask questions if they do not understand what they are told or what they should do.
[2024-06-15] MEDS: SODIUM CHLORIDE 0.9% IV 1,000 ML 100 ML IV CONT (18:16)
[2024-06-15 20:00] VITALS: BP 152/81; PULSE 82; RESP 18; TEMP 36.4; O2SAT 93
[2024-06-15] MEDS: MAGNESIUM CITRATE 300 ML BTL 150 ML PO (20:41)
[2024-06-16] VITALS: BP 152/81; PULSE 82; RESP 16; TEMP 37; O2SAT 93
[2024-06-16] MEDS: ONDANSETRON INJ 4 MG/2 ML VIAL IV PUSH (00:56)
[2024-06-16] MEDS: MORPHINE SULFATE (*CRX) 2 MG/ML INJ IV PUSH ×3 (00:56→09:03)
[2024-06-16 05:14] LABS: Basophils Absolute Auto 0.02 K/mm3 (0.00-0.10); Basophils Percent Auto 0.2 % (0.0-1.0); Eosinophils Absolute Auto 0.26 K/mm3 (0.02-0.50); Eosinophils Percent Auto 2.6 % (1.0-6.0); Hematocrit 30.6 % (35.0-42.0); Hemoglobin 9.8 g/dL (11.7-13.8); Immature Granulocyte Absolute 0.05 K/mm3 (0.00-0.00); Immature Granulocyte Percent A 0.5 % (0.0-0.0); Lymphocytes Absolute Auto 0.82 K/mm3 (1.10-4.50); Lymphocytes Percent Auto 8.1 % (18.0-42.0); Mean Corpuscular Hemoglobin 29.6 pg (27.0-31.0); Mean Corpuscular Volume 92.4 fL (78.0-102.0); Monocytes Absolute Auto 0.69 K/mm3 (0.10-0.90); Monocytes Percent Auto 6.8 % (2.0-11.0); Neutrophils Absolute Auto 8.25 K/mm3 (1.70-7.20); Neutrophils Percent Auto 81.8 % (50.0-70.0); Platelet Count Result 336 K/mm3 (150-420); Red Blood Count 3.31 M/mm3 (4.20-5.40); Red Cell Distribution Width 13.1 % (11.6-14.4); White Blood Count 10.1 K/mm3 (4.8-10.8)
[2024-06-16 05:32] LABS: Alanine Aminotransferase 8 U/L (14-59); Albumin Level 2.8 g/dL (3.4-5.0); Alkaline Phosphatase 146 U/L (46-116); Anion Gap 7 mmol/L (4-12); Aspartate Amino Transferase 14 U/L (15-37); Bilirubin,Total 0.4 mg/dL (0.00-1.00); Blood Urea Nitrogen 10 mg/dL (7-18); Calcium 8.6 mg/dL (8.5-10.1); Carbon Dioxide 27 mmol/L (21-32); Chloride 108 mmol/L (98-108); Estimated CRCL calculation 33 ml/min; Estimated Glomerular Filt Rate 54; Glucose 83 mg/dL (70-99); Osmolality Calculated 292 mOsm/kg (285-295); Potassium 4.8 mmol/L (3.5-5.1); Sodium 142 mmol/L (136-145); Total Protein 5.3 g/dL (6.4-8.2)
[2024-06-16] MEDS: SODIUM CHLORIDE 0.9% IV 1,000 ML 100 ML IV CONT ×2 (05:52→16:11)
--- NOTE | 2024-06-16 07:18 | PM.IMHP ---
H&P: HPI History of Present Illness Date/Time: 06/16/24 07:18 Chief Complaint: abdominal pain Narrative: This is a 68-year-old female with a past medical history significant for Chronic back pain for which she follows with Pain Management at [facility] and presence of nerve stimulator, wheelchair-bound,depression with anxiety, GERD, hypothyroidism, migraine, rheumatoid arthritis, MRSA, and history of rupture of ICA pseudoaneurysm. she presented to [facility] with complaints of abdominal pain. The patient provides the following history. On 06/07 she saw her primary care provider with similar complaints. according to chart review and abdominal x-ray and labs were ordered at that visit. x-ray that time showed fecal impaction. The patient says she was told to take laxatives and if her symptoms worsen to come to the hospital. Overnight her abdominal pain worsened to the point where she was having nausea and vomiting of yellow, green liquid and decided to Come for evaluation. She also reports belching and increasing gas. She is still passing flatness and is had loose brown stool. She has a poor appetite related to her abdominal pain and the nausea. She also reports headache and dizziness with shortness of breath and chest pain. she reports subjective chills states her temperature was less than 100?. She is a chronic problem with urinary incontinence. She has had problems with constipation and has failed trials with Linzess. Besides her abdominal pain she is also complaining of her chronic left arm and leg pain. On arrival to the emergency room labs were fairly unremarkable with a wbc count 7.4, hemoglobin 10.7, sodium 137, potassium 4.6, alk-phos 166, albumin 2.8, and lipase 24. urinalysis was clear. CT abdomen and pelvis showed mildly dilated loops of small bowel without focal transition point consistent with ileus versus partial small-bowel obstruction. She received a L of normal saline and was started on fluids at 100 an hour. She also received morphine and Toradol for pain and a dose of Mag citrate. She was admitted to the floor under the hospitalist service for further workup and management of her abdominal pain. Review of Systems Review of Systems: All systems reviewed & are unremarkable except as noted in HPI and below PMFSH Past Medical History Medical History Chronic back pain Chronic pain Daytime somnolence Depression with anxiety Encounter for screening colonoscopy Family history of colon cancer Family history of colon cancer in mother GERD (gastroesophageal reflux disease) Hypothyroidism Insomnia Left shoulder pain Migraine Neck pain Preoperative clearance Rheumatoid arthritis Right knee pain Surgical History Surgical History H/O knee surgery left H/O knee surgery Total right knee replacement-AUG 27 H/O shoulder surgery left History of cholecystectomy Presence of neurostimulator Family History Family History Father CAD (coronary artery disease) Social History Social History (Updated 06/16/24 @ 10:12 by Nisha Felder APRN) Social History: she states that she has a son who is , , and 2 daughters who live in [place]. One daughter is currently undergoing treatment for cancer. She also reports that she has a niece that is supposed to be coming to live with her who is fully dependent for ADLs. The patient herself is normally independent of her ADLs however recently she has been having issues with falling and forgetfulness so she is no longer cooking for herself. She says there is no one else to help take care of her. Patient would like to remain a full code. Smoking status: Never smoker Second hand tobacco smoke exposure: Yes Alcohol intake: never D
[2024-06-16 07:45] VITALS: BP 108/60; PULSE 18; RESP 84; TEMP 36.1; O2SAT 95
[2024-06-16] MEDS: PANTOPRAZOLE SODIUM IV 40 MG VIAL IV PUSH (08:58)
[2024-06-16] MEDS: HYDROcodone/acetaminophen (*CRX) 7.5-325 MG TABLET 1 TAB PO ×2 (10:03→20:52)
--- NOTE | 2024-06-16 10:07 | ECG_ITS ---
Test Date: 2024-06-16 10:22:28 Measurements Intervals [place] Rate: 68 P: 60 RI: 186 QRS: 63 QRSD: 98 T: 66 QT: 394 QTc: 419 Interpretive Statements BASELINE MOTION ARTIFACT, REDUCED ECG QUALITY SINUS RHYTHM WITHIN NORMAL LIMITS Compared to ECG 05/25/2024 12:48:12 NO SIGNIFICANT CHANGE Electronically Signed On 06-16-2024 13:00:39 CDT by Uli Laureano M.D.
[2024-06-16 10:31] LABS: Troponin I 7.4 ng/L (0.00-60.4)
[2024-06-16] MEDS: ENOXAPARIN 40 MG/0.4 ML SYRINGE SUB-Q (11:54)
[2024-06-16] MEDS: FOLIC ACID 50 MG/10 ML VIAL IV PUSH (11:54)
[2024-06-16 16:00] VITALS: BP 98/60; PULSE 64; RESP 18; TEMP 35.7; O2SAT 97
[2024-06-17] VITALS: BP 104/80; PULSE 80; RESP 16; TEMP 36.7; O2SAT 92
[2024-06-17] MEDS: SODIUM CHLORIDE 0.9% IV 1,000 ML 100 ML IV CONT (02:33)
[2024-06-17] MEDS: HYDROcodone/acetaminophen (*CRX) 7.5-325 MG TABLET 1 TAB PO ×4 (02:33→20:27)
[2024-06-17 05:46] LABS: Basophils Absolute Auto 0.02 K/mm3 (0.00-0.10); Basophils Percent Auto 0.4 % (0.0-1.0); Eosinophils Absolute Auto 0.02 K/mm3 (0.02-0.50); Eosinophils Percent Auto 0.4 % (1.0-6.0); Hematocrit 39.9 % (35.0-42.0); Hemoglobin 11.2 g/dL (11.7-13.8); Immature Granulocyte Absolute 0.03 K/mm3 (0.00-0.00); Immature Granulocyte Percent A 0.6 % (0.0-0.0); Lymphocytes Absolute Auto 0.64 K/mm3 (1.10-4.50); Lymphocytes Percent Auto 12.1 % (18.0-42.0); Mean Corpuscular HGB Conc 28.1 g/dL (32-36); Mean Corpuscular Hemoglobin 29.2 pg (27.0-31.0); Mean Corpuscular Volume 104.2 fL (78.0-102.0); Mean Platelet Volume 9.1 fl (9.2-11.8); Monocytes Absolute Auto 0.36 K/mm3 (0.10-0.90); Monocytes Percent Auto 6.8 % (2.0-11.0); Neutrophils Absolute Auto 4.23 K/mm3 (1.70-7.20); Neutrophils Percent Auto 79.7 % (50.0-70.0); Platelet Count Result 299 K/mm3 (150-420); Red Blood Count 3.83 M/mm3 (4.20-5.40); Red Cell Distribution Width 12.9 % (11.6-14.4); White Blood Count 5.3 K/mm3 (4.8-10.8)
--- NOTE | 2024-06-17 06:24 | PC.NURSE ---
Lab called to report critical glucose of 32.
[2024-06-17 06:25] LABS: Anion Gap 12 mmol/L (4-12); Carbon Dioxide 22 mmol/L (21-32); Chloride 106 mmol/L (98-108); Glucose 32 mg/dL (70-99); Sodium 140 mmol/L (136-145)
[2024-06-17 06:26] LABS: Alanine Aminotransferase 9 U/L (14-59); Aspartate Amino Transferase 17 U/L (15-37); Bilirubin,Total 0.3 mg/dL (0.00-1.00); Blood Urea Nitrogen 12 mg/dL (7-18); Calcium 8.4 mg/dL (8.5-10.1); Estimated CRCL calculation 40 ml/min; Estimated Glomerular Filt Rate > 60; Magnesium 2.1 mg/dL (1.8-2.4); Osmolality Calculated 285 mOsm/kg (285-295)
[2024-06-17 06:27] LABS: Albumin Level 2.5 g/dL (3.4-5.0); Alkaline Phosphatase 135 U/L (46-116); Total Protein 4.9 g/dL (6.4-8.2)
--- NOTE | 2024-06-17 06:30 | PC.NURSE ---
Florecita Felder NP, notified of pt's critical glucose of 32. Orders received for one amp of D50% IVP and change of IV fluid to D5NS at 100 ml/hr.
[2024-06-17] MEDS: DEXTROSE 50% 25 GM/50 ML SYRINGE IV PUSH (06:31)
[2024-06-17] MEDS: DEXTROSE 5%/0.9% SOD CHL 1,000 ML 100 ML IV CONT ×2 (06:47→17:36)
--- NOTE | 2024-06-17 07:14 | PM.IMPN ---
Progress Note: A&P Assessment and Plan (1) Abdominal pain: Qualifiers: Abdominal location: left lower quadrant Qualified Code(s): R10.32 - Left lower quadrant pain Code(s): R10.9 - Unspecified abdominal pain Status: Acute Assessment and Plan: Patient reports abdominal pain on and off for the last 2 weeks. Abdominal pain overnight worsened to the point of her having nausea and vomiting and unable to keep oral intake down. CT imaging on admission shows concerns for partial small-bowel obstruction verses adynamic ileus. symptoms are thought to be from chronic opioid use for chronic back pain. Patient also has the presence of a nerve stimulator. Patient is placed NPO IV fluids at 100 an hour monitor electrolytes on daily labs and replete as necessary NG tube was attempted but patient did not tolerate and has refused to a low provider or another nurse attempt placement. Will plan for bowel rest today and trial clear liquid diet in the morning. She is still having flatness and passing small amounts of stool. I had wanted to do a small-bowel follow-through but unfortunately we do not do that here at this hospital. If she does not improve with conservative treatment she will require transfer to [facility] for further testing versus surgical consultation will trial clear liquids and advance diet as tolerated to low Fiber. Lactulose 20 g x 1, she will need a bowel regimen to keep her from having recurrence of constipation. haley started tonight. She had an episode of hypoglycemia on her a.m. labs. Blood sugar was 32. Patient had shakiness but no other symptoms. She was given an amp of D50 answers on the 5 in his 100 mils an hour. Will check her blood sugars today A.c. HS. (2) Chest pain: Code(s): R07.9 - Chest pain, unspecified Status: Acute Assessment and Plan: patient is reporting chest discomfort with shortness of breath. she is also very anxious worked up regarding placement of the NG to and her abdominal pain. EKG ordered stat troponin low concern for acute coronary syndrome save feel this is more related to anxiety and possibly musculoskeletal pain from vomiting. troponin and EKG without concerns for ACS. once her belching resolved she no longer was having chest pain. (3) Nausea and vomiting: Code(s): R11.2 - Nausea with vomiting, unspecified Status: Acute Assessment and Plan: 06/15 patient reported nausea and vomiting of yellow, green liquid. She has had no significant nutrition in the last 24 hours related to nausea and vomiting. symptoms are felt to be related to partial small-bowel obstruction versus ileus. Patient is NPO IV fluids p.r.n. Zofran as needed No recurrence since yesterday morning. Will trial clear liquid diet (4) Folic acid deficiency: Code(s): E53.8 - Deficiency of other specified B group vitamins Status: Acute Assessment and Plan: Patient is anemic on CBC. PCP performed workup last week and patient was found to be deficient in folic acid. Hemoglobin is 9.8 folate 5.5 continue with folic acid 1 mg daily iron, TIBC, and vitamin B12 were normal (5) Chronic back pain: Code(s): M54.9 - Dorsalgia, unspecified; G89.29 - Other chronic pain Status: Acute Assessment and Plan: Patient follows with [facility] Management at [facility]. She has a presence of nerve stimulator. She takes [place] 7.5 mg every 6 hours as needed for pain. Patient's current presentation is felt to be related to impaired bowel motility from her narcotics. She states she takes a laxative at home as needed for her bowel regimen. She has trialed Linzess twice before and it caused severe diarrhea even at the lowest dose so she is not interested in resuming this. She continues to have flatus and small amounts of stool. Will add bowel regimen when she start clear liquid diet Plan DV
--- NOTE | 2024-06-17 07:58 | PC.NURSE ---
Pt blood sugar at 0730 is 117
[2024-06-17 07:59] LABS: Glucose Point of Care 117 mg/dl (65-105)
[2024-06-17 07:59] LABS: Glucose Point of Care 120 mg/dl (65-105)
[2024-06-17 08:00] VITALS: BP 106/78; PULSE 56; RESP 14; TEMP 35.8; O2SAT 94
[2024-06-17] MEDS: ENOXAPARIN 40 MG/0.4 ML SYRINGE SUB-Q (08:53)
[2024-06-17] MEDS: PANTOPRAZOLE SODIUM IV 40 MG VIAL IV PUSH (08:54)
[2024-06-17] MEDS: polyethylene glycoL 3350 17 GM POWD.PACK PO (08:56)
[2024-06-17] MEDS: FOLIC ACID 50 MG/10 ML VIAL IV PUSH (08:56)
[2024-06-17] MEDS: LACTULOSE 20 GM/30 ML UDC PO (08:56)
--- NOTE | 2024-06-17 11:44 | PC.NURSE ---
Blood sugar at 1130 is 122. RO
[2024-06-17 11:48] LABS: Glucose Point of Care 122 mg/dl (65-105)
[2024-06-17] MEDS: ONDANSETRON INJ 4 MG/2 ML VIAL IV PUSH (13:02)
[2024-06-17] MEDS: MORPHINE SULFATE (*CRX) 2 MG/ML INJ IV PUSH (13:13)
--- NOTE | 2024-06-17 13:14 | PC.NURSE ---
MSO4 given for pain. vial would not scan.
--- NOTE | 2024-06-17 14:20 | PC.NURSE ---
LEI Cameron notified of patients anxious/restless behavior. N.O. received for 1x Ativan if needed.
[2024-06-17 16:35] VITALS: BP 124/69; PULSE 64; RESP 16; TEMP 36; O2SAT 95
[2024-06-17 17:45] LABS: Glucose Point of Care 121 mg/dl (65-105)
[2024-06-17] MEDS: SENNA/DOCUSATE SODIUM TABLET 1 TAB PO (20:27)
[2024-06-17 20:42] LABS: Glucose Point of Care 122 mg/dl (65-105)
[2024-06-18] VITALS: BP 103/67; PULSE 64; RESP 18; TEMP 36.2; O2SAT 97
[2024-06-18] MEDS: DEXTROSE 5%/0.9% SOD CHL 1,000 ML 100 ML IV CONT (04:22)
[2024-06-18 05:21] LABS: Basophils Absolute Auto 0.01 K/mm3 (0.00-0.10); Basophils Percent Auto 0.2 % (0.0-1.0); Eosinophils Absolute Auto 0.14 K/mm3 (0.02-0.50); Eosinophils Percent Auto 2.6 % (1.0-6.0); Hemoglobin 9.8 g/dL (11.7-13.8); Immature Granulocyte Absolute 0.01 K/mm3 (0.00-0.00); Immature Granulocyte Percent A 0.2 % (0.0-0.0); Lymphocytes Absolute Auto 0.98 K/mm3 (1.10-4.50); Mean Corpuscular HGB Conc 31.6 g/dL (32-36); Mean Corpuscular Hemoglobin 29.9 pg (27.0-31.0); Mean Corpuscular Volume 94.5 fL (78.0-102.0); Mean Platelet Volume 9.2 fl (9.2-11.8); Monocytes Absolute Auto 0.55 K/mm3 (0.10-0.90); Monocytes Percent Auto 10.1 % (2.0-11.0); Neutrophils Absolute Auto 3.74 K/mm3 (1.70-7.20); Neutrophils Percent Auto 68.9 % (50.0-70.0); Platelet Count Result 368 K/mm3 (150-420); Red Blood Count 3.28 M/mm3 (4.20-5.40); Red Cell Distribution Width 13.2 % (11.6-14.4); White Blood Count 5.4 K/mm3 (4.8-10.8)
[2024-06-18] MEDS: HYDROcodone/acetaminophen (*CRX) 7.5-325 MG TABLET 1 TAB PO ×2 (05:32→11:24)
[2024-06-18 05:37] LABS: Alanine Aminotransferase 10 U/L (14-59); Albumin Level 2.9 g/dL (3.4-5.0); Alkaline Phosphatase 140 U/L (46-116); Anion Gap 7 mmol/L (4-12); Aspartate Amino Transferase 16 U/L (15-37); Bilirubin,Total 0.2 mg/dL (0.00-1.00); Blood Urea Nitrogen 6 mg/dL (7-18); Calcium 8.8 mg/dL (8.5-10.1); Carbon Dioxide 25 mmol/L (21-32); Chloride 110 mmol/L (98-108); Estimated CRCL calculation 39 ml/min; Estimated Glomerular Filt Rate > 60; Glucose 100 mg/dL (70-99); Magnesium 1.9 mg/dL (1.8-2.4); Osmolality Calculated 291 mOsm/kg (285-295); Potassium 4.1 mmol/L (3.5-5.1); Sodium 142 mmol/L (136-145); Total Protein 5.6 g/dL (6.4-8.2)
[2024-06-18 08:00] VITALS: BP 112/60; PULSE 68; RESP 14; TEMP 36.6; O2SAT 97
[2024-06-18 08:03] LABS: Glucose Point of Care 102 mg/dl (65-105)
--- NOTE | 2024-06-18 08:10 | PC.NURSE ---
Blood sugar this am is 102. ro
[2024-06-18] MEDS: ENOXAPARIN 40 MG/0.4 ML SYRINGE SUB-Q (09:00)
[2024-06-18] MEDS: LACTULOSE 20 GM/30 ML UDC PO (09:00)
[2024-06-18] MEDS: FOLIC ACID 50 MG/10 ML VIAL IV PUSH (09:25)
[2024-06-18] MEDS: FLUTICASONE PROPIONATE 0.05% NA SPR 16 GM BTL (*BKC) 2 SPRAY NASAL (10:48)
[2024-06-18] MEDS: PANTOPRAZOLE SODIUM IV 40 MG VIAL IV PUSH (10:49)
[2024-06-18] MEDS: polyethylene glycoL 3350 17 GM POWD.PACK PO (10:50)
[2024-06-18 11:35] LABS: Glucose Point of Care 102 mg/dl (65-105)
--- NOTE | 2024-06-18 14:26 | PM.DS ---
DS: Admitting Diagnosis Discharge Date 06/18 Admitting Diagnosis abdominal pain DS: Discharge Diagnosis Discharge Diagnosis (1) Abdominal pain: Qualifiers: Abdominal location: left lower quadrant Qualified Code(s): R10.32 - Left lower quadrant pain Code(s): R10.9 - Unspecified abdominal pain Status: Acute Assessment and Plan: Patient reports abdominal pain on and off for the last 2 weeks. Abdominal pain overnight worsened to the point of her having nausea and vomiting and unable to keep oral intake down. CT imaging on admission shows concerns for partial small-bowel obstruction verses adynamic ileus. symptoms are thought to be from chronic opioid use for chronic back pain. Patient also has the presence of a nerve stimulator. Patient is placed NPO IV fluids at 100 an hour monitor electrolytes on daily labs and replete as necessary NG tube was attempted but patient did not tolerate and has refused to a low provider or another nurse attempt placement. Will plan for bowel rest today and trial clear liquid diet in the morning. She is still having flatness and passing small amounts of stool. I had wanted to do a small-bowel follow-through but unfortunately we do not do that here at this hospital. If she does not improve with conservative treatment she will require transfer to [facility] for further testing versus surgical consultation will trial clear liquids and advance diet as tolerated to low Fiber. Lactulose 20 g x 1, she will need a bowel regimen to keep her from having recurrence of constipation. haley started tonight. She had an episode of hypoglycemia on her a.m. labs. Blood sugar was 32. Patient had shakiness but no other symptoms. She was given an amp of D50 answers on the 5 in his 100 mils an hour. Will check her blood sugars today A.c. HS. (2) Chest pain: Code(s): R07.9 - Chest pain, unspecified Status: Acute Assessment and Plan: patient is reporting chest discomfort with shortness of breath. she is also very anxious worked up regarding placement of the NG to and her abdominal pain. EKG ordered stat troponin low concern for acute coronary syndrome save feel this is more related to anxiety and possibly musculoskeletal pain from vomiting. troponin and EKG without concerns for ACS. once her belching resolved she no longer was having chest pain. (3) Nausea and vomiting: Code(s): R11.2 - Nausea with vomiting, unspecified Status: Acute Assessment and Plan: 06/15 patient reported nausea and vomiting of yellow, green liquid. She has had no significant nutrition in the last 24 hours related to nausea and vomiting. symptoms are felt to be related to partial small-bowel obstruction versus ileus. Patient is NPO IV fluids p.r.n. Zofran as needed No recurrence since yesterday morning. Will trial clear liquid diet (4) Folic acid deficiency: Code(s): E53.8 - Deficiency of other specified B group vitamins Status: Acute Assessment and Plan: Patient is anemic on CBC. PCP performed workup last week and patient was found to be deficient in folic acid. Hemoglobin is 9.8 folate 5.5 continue with folic acid 1 mg daily iron, TIBC, and vitamin B12 were normal (5) Chronic back pain: Code(s): M54.9 - Dorsalgia, unspecified; G89.29 - Other chronic pain Status: Acute Assessment and Plan: Patient follows with Pain Management at [facility]. She has a presence of nerve stimulator. She takes [place] 7.5 mg every 6 hours as needed for pain. Patient's current presentation is felt to be related to impaired bowel motility from her narcotics. She states she takes a laxative at home as needed for her bowel regimen. She has trialed Linzess twice before and it caused severe diarrhea even at the lowest dose so she is not interested in resuming this. She continues to have flatus and small
--- NOTE | 2024-06-18 15:30 | PC.NURSE ---
Patient discharging home. IV site removed, tip intact dressing applied to site. All discharge instructions and education reviewed with patient. Patient states understanding. All belongings gathered together and sent home with patient. Zoraidatent denies any questions. Patient left via personal wheelchair accompanied by family member.
--- NOTE | 2024-06-19 13:12 | PC.NURSE ---
Discharge call back completed, doing ok, advised to call primary care doctor for follow up, no questions about dc instructions
== END 2024-06-18 15:30 | disposition home or self-care (01) | DRG 390 ==
LOC: CHSED 17:02 → CHS2ND 17:15
PROVIDERS: Nurse Practitioner Acute Care; Admitting Provider Internal Medicine; Emergency Provider Emergency Medicine; PCP Nurse Practitioner Family; Visit Provider Internal Medicine
DX: K56.600 Partial intestinal obstruction, unspecified as to cause (principal); K56.0 Paralytic ileus; K21.9 Gastro-esophageal reflux disease without esophagitis; E03.9 Hypothyroidism, unspecified; E53.8 Deficiency of other specified B group vitamins; M06.9 Rheumatoid arthritis, unspecified; M54.9 Dorsalgia, unspecified; G89.29 Other chronic pain; F32.A Depression, unspecified; F41.9 Anxiety disorder, unspecified; Z96.651 Presence of right artificial knee joint; Z96.82 Presence of neurostimulator; Z99.3 Dependence on wheelchair; Z79.891 Long term (current) use of opiate analgesic
CPT/HCPCS: 36415; 74176; 80053; 81003; 82948; 83605; 83690; 83735; 84443; 84484; 85025; 85610; 85730; 93005; 96361; 96372; 96374; 96375; 96376; 99285; A9270; G0378; J1650; J1885; J2270; J2405; J2470; J7030; J7042

== ENCOUNTER 2024-06-20 14:33 | Outpatient (CLI) | payer MEDICARE, SELFPAY ==
--- NOTE | ~2024-06-20 | XR_ITS ---
EXAMINATION: XR femur LT min 2V DATE: 06/20/2024 15:15 INDICATION: Fall. TECHNIQUE: 2 views of left femur on 4 radiographs were obtained. COMPARISON: Left knee radiographs 09/19/20 FINDINGS: There is lumbar levoscoliosis and severe spondylosis. There is a healing oblique fracture o f femoral diaphysis with internal fixation with plate and screws. There is a lateral plate with screw s involving femoral head and neck and diaphysis. There is a cable around femoral diaphysis. There is a longstem total knee arthroplasty in near-anatomic alignment. There is mild left hip osteoarthritis. No knee joint effusion. IMPRESSION: 1. Healing oblique fracture of femoral diaphysis with internal fixation. 2. Mild left hip osteoarthritis. Reviewed, dictated and finalized at location A.
--- NOTE | ~2024-06-20 | CT_ITS ---
EXAMINATION: CT brain wo con DATE: 06/20/2024 15:15 INDICATION: Fall. Blurred vision. Dizziness. Fever. TECHNIQUE: Computed tomography (CT) of the head was performed without intravenous contrast. The mA wa s adjusted according to patient size. Iterative reconstruction technique was employed. The dose-lengt h product was 605.33 mGy-cm. COMPARISON: Head CT 11/11/2023 FINDINGS: There are scattered areas of low attenuation in the cerebral white matter, which is within normal limits for the patient's age. There is no intracranial hemorrhage, acute infarction, or abnorm al intracranial mass lesion. The ventricles are normal in size. There are likely changes of ocular le ns replacement surgeries. The paranasal sinuses are clear. The mastoid air cells are normal. IMPRESSION: 1. Normal aging brain. Reviewed, dictated and finalized at location A. IMPRESSION: 1. Normal aging brain.
--- NOTE | ~2024-06-20 | XR_ITS ---
EXAMINATION: XR chest 2V 06/20/2024 15:15 INDICATION: Status post fall. Fever and shortness of breath. PROCEDURE: 2 view chest COMPARISON: Comparison to multiple prior studies sequentially, with oldest reviewed study dated 03/08. FINDINGS: The lungs are clear. The cardiomediastinal silhouette is within normal limits. There are no pleural effusions. There is no pneumothorax suspected. There is a left shoulder arthroplasty. Se cathy osteoarthritis of the right shoulder. There are epidural electrodes. There are cholecystectomy c lips. IMPRESSION: 1: NO ACUTE CARDIOPULMONARY DISEASE. Reviewed, dictated and finalized at location B.
== END 2024-06-20 14:34 | disposition home or self-care (01) ==
LOC: CHSIMG 14:34
PROVIDERS: PCP Nurse Practitioner Family; Visit Provider Nurse Practitioner Family
DX: R42 Dizziness and giddiness (principal); H53.8 Other visual disturbances; R50.9 Fever, unspecified; S72.8X2D Other fracture of left femur, subsequent encounter for closed fracture with routine healing; M16.12 Unilateral primary osteoarthritis, left hip
CPT/HCPCS: 70450; 71046; 73552

== ENCOUNTER 2024-07-14 15:49 | Outpatient (CLI) | payer MEDICARE, SELFPAY ==
--- NOTE | ~2024-07-14 | XR_ITS ---
EXAMINATION: XR chest 2V DATE: 07/14/2024 16:03 INDICATION: Shortness of breath TECHNIQUE: frontal and lateral views of the chest were obtained. COMPARISON: Chest radiograph dated 06/20/2024 FINDINGS: The lungs remain clear with no focal airspace opacities, pulmonary edema, pleural effusion or pneumot horax. The cardiomediastinal silhouette is normal. Right rotator cuff arthropathy with severe glenohu meral osteoarthritis. Left shoulder hemiarthroplasty with prominent osteolysis and remodeling of the left glenoid. Cholecystectomy clips in right upper quadrant. Spinal stimulator leads projecting over the mid to lower thoracic spine with lead tips at the level of T5-T6. IMPRESSION: 1. No acute cardiopulmonary disease. Reviewed, dictated and finalized at location B.
== END 2024-07-14 15:50 | disposition home or self-care (01) ==
LOC: CHSIMG 15:51
PROVIDERS: PCP Nurse Practitioner Family; Visit Provider Nurse Practitioner Family
DX: R06.02 Shortness of breath (principal)
CPT/HCPCS: 71046

== ENCOUNTER 2024-07-18 15:59 | Outpatient (CLI) | payer MEDICARE, SELFPAY ==
--- NOTE | ~2024-07-18 | XR_ITS ---
Supine and upright views of the abdomen Clinical history: Abdominal pain COMPARISON: 06/07/2024 Findings: Bowel gas pattern is nonspecific. Moderate stool burden. No evidence for obstruction or nathan e air. No abnormal mass lesion or calcification is seen. Prior ORIF of the left femur. Neurostimulato r device present. There is levoscoliosis and extensive degenerative change of the lumbar spine. Impression: Moderate stool burden. Additional chronic findings, stable from prior exam. Reviewed, dictated and finalized at location . Impression: Moderate stool burden. Additional chronic findings, stable from prior exam.
== END 2024-07-18 16:00 | disposition home or self-care (01) ==
LOC: CHSIMG 16:01
PROVIDERS: PCP Nurse Practitioner Family; Visit Provider Nurse Practitioner Family
DX: R14.0 Abdominal distension (gaseous) (principal); R10.9 Unspecified abdominal pain; R06.00 Dyspnea, unspecified
CPT/HCPCS: 74018

== ENCOUNTER 2025-07-04 16:15 | Outpatient (CLI) | payer MEDICARE, SELFPAY ==
[2025-07-04 17:04] LABS: Hematocrit 37.1 % (35.0-42.0); Hemoglobin 11.7 g/dL (11.7-13.8); Immature Granulocyte Percent A 0.4 % (0.0-0.0); Lymphocytes Absolute Auto 1.18 K/mm3 (1.10-4.50); Mean Corpuscular HGB Conc 31.5 g/dL (32-36); Mean Corpuscular Hemoglobin 28.5 pg (27.0-31.0); Mean Corpuscular Volume 90.5 fL (78.0-102.0); Nucleated Red Blood Cells Absolute Auto 0.00 K/mm3 (0.00-0.00); Nucleated Red Blood Cells Perc 0.0 % (0-0.0); Platelet Count Result 390 K/mm3 (150-420); Red Blood Count 4.10 M/mm3 (4.20-5.40); White Blood Count 5.7 K/mm3 (4.8-10.8)
[2025-07-04 17:09] LABS: Alanine Aminotransferase 10 U/L (6-35); Albumin Level 4.3 g/dL (3.5-5.1); Alkaline Phosphatase 147 U/L (38-126); Anion Gap 10 mmol/L (4-12); Aspartate Amino Transferase 23 U/L (14-36); Bilirubin,Total 0.5 mg/dL (0.2-1.3); Blood Urea Nitrogen 7 mg/dL (7-17); Calcium 9.7 mg/dL (8.4-10.2); Carbon Dioxide 27 mmol/L (22-30); Chloride 103 mmol/L (98-107); Cholesterol 166 mg/dL (0-200); Estimated Glomerular Filt Rate > 60; Glucose 90 mg/dL (65-110); HDL Direct 52 mg/dL; Osmolality Calculated 288 mOsm/kg (285-295); Potassium 4.5 mmol/L (3.4-5.0); Sodium 140 mmol/L (137-145); Total Protein 6.7 g/dL (6.3-8.2); Triglycerides 122 mg/dL (<150)
[2025-07-04 17:15] LABS: Hemoglobin A1C 5.5 % (<5.7)
[2025-07-04 17:40] LABS: Thyroid Stimulating Hormone Reflex 1.130 uIU/mL (0.465-4.68)
== END 2025-07-04 16:16 | disposition home or self-care (01) ==
LOC: CHSLAB 16:18
PROVIDERS: PCP Nurse Practitioner Family; Visit Provider Nurse Practitioner Family
DX: E03.9 Hypothyroidism, unspecified (principal); R73.9 Hyperglycemia, unspecified
CPT/HCPCS: 36415; 80053; 80061; 83036; 84443; 85025

== ENCOUNTER 2025-08-22 13:14 | Outpatient (CLI) | payer MEDICARE, SELFPAY ==
--- NOTE | ~2025-08-22 | XR_ITS ---
EXAMINATION: XR_RIBSBI_CR, 08/22/2025 13:30 CDT HISTORY: R07.89 - Other chest pain COMPARISON: No comparisons available. Findings: No acute fracture or malalignment. No significant degenerative changes. Soft tissues unremarkable. Impression: No acute fracture or malalignment. Reviewed, dictated and finalized at location P. Impression: No acute fracture or malalignment.
--- NOTE | ~2025-08-22 | XR_ITS ---
EXAMINATION: XR wrist LT min 3V, 08/22/2025 13:30 CDT HISTORY: M25.532 - Pain in left wrist COMPARISON: No comparisons available. Findings: No acute fracture or malalignment. Severe degenerative changes of the first metacarpal carpal joint with small erosions Soft tissues unremarkable. Impression: No acute fracture or malalignment. Reviewed, dictated and finalized at location P. Impression: No acute fracture or malalignment.
--- NOTE | ~2025-08-22 | XR_ITS ---
EXAMINATION: XR hand LT min 3V, 08/22/2025 13:30 CDT HISTORY: M25.532 - Pain in left wrist COMPARISON: No comparisons available. Findings: No acute fracture or malalignment. Severe degenerative changes of the first metacarpal carpal joint with small erosions. Moderate to severe degenerative changes of the distal, proximal interphalangeal joints and the metacarpal phalangeal joints with small erosions. Soft tissues unremarkable. Impression: Degenerative changes detailed above Reviewed, dictated and finalized at location P. Impression: Degenerative changes detailed above
--- OUTSIDE RECORDS SUMMARY | 2025-08-22 14:36 | XMS_ITS | Encounter Summary ---
Author Organization [facility] Address [address] [place] [address] Care Team Providers Care Passenger Brakeman Name Role Phone Bradley Nuno DO Primary Care Provider [phone] Encounter Details Date Type Department Care Team (Late st Contact Info) Description 04/05/2024 Pre-Procedure Call [facility] Coding Compliance Auditor Pre/Post [address] [place] [address] Kaleb Costa MD [address] [id number] Social History Tobacco Use Types Packs/Day Years Used Date Smoking Tobacco: Never Smokeless Tobacco: Never Tobacco Cessation:Counseling Given: No Comments Unknown Sex and Gender Information Value Date Recorded Sex Assigned at Not on file Legal Sex Female 10:56 PM CDT Gender Identity Not on file Sexual Orientation Not on file documented as of this encounter Plan of Treatment Not on file documented as of this encounter Visit Diagnoses Not on filedocumented in this encounter Additional Health Concerns Infection Onset Date Last Indicated Resolved Time MRSA 09/11/2017 09/11/2017 documented as of this encounter Care Teams Passenger Brakeman Relationship Specialty Start Date End Date Bradley Nuno DO [address] [place] [address] PCP - General FAMILY PRACTICE 03/30/24 documented as of this encounter
--- OUTSIDE RECORDS SUMMARY | 2025-08-22 14:36 | XMS_ITS | Clinical Summary ---
Author Organization [facility] Address [address] [place] [address] Phone Care Team Providers Care Senior Drafter Name Role Phone Caitlin Gleason APRN, HENRI Primary Care Provide r Allergies Active Allergy Reactions Criticality Noted Date Comments Sulfamethoxazole-Trimethoprim Anaphylaxis 11/23 Penicillin G Unknown 03/16/2016 Sulfa Antibiotics Unknown 03/16/2016 Vancomycin Hives Medium 12/15/2024 Medications oxyCODONE-Aceta minophen (PERCOCET) 10-325 MG Tablet Take 1 Tab by mouth 3 times daily as needed for Moderate or more severe pain. 0 7 Active esomeprazole (NEXIUM) 40 MG CAPSULE DELAYED RELEASE Take 1 Cap by mouth daily. 30 Cap 1 7 Active polyethylene glycol (GLYCOLAX, MIRALAX) Pack Take 1 Packet by mouth daily. Dissolve in 4-8 oz of liquid. 30 Packet 0 7 Active aspirin 81 MG Chewable Tablet Take 1 Tab by mouth daily. 100 Tab 7 Active levothyroxine (SYNTHROID) 50 MCG Tablet TAKE 1 TABLET BY MOUTH DAILY 90 Tab 1 7 Active oxybutynin (DITROPAN) 5 MG Tablet Take 5 mg by mouth 2 times daily. Active Methylnaltrexon e [place] (RELISTOR) 150 MG Tablet Take 3 Tabs by mouth nightly. Active methylnaltrexon e (RELISTOR) 12 MG/0.6ML Solution 12 mg by Subcutaneous route every 48 hours as needed for Constipation. Active gabapentin (NEURONTIN) 800 MG TabletIndicatio ns:pain Take 800 mg by mouth 3 times daily. 8 Active meclizine (ANTIVERT) 12.5 MG Tablet Take 1 Tab by mouth daily as needed for Dizziness. Active fluticasone (FLONASE) 50 MCG/ACT Suspension 2 Sprays by Nasal route daily. Active FOLIC ACID PO Take by mouth. A ctive Sennosides-Docu sate Sodium (DESTINEE-COLACE PO) Take by mouth. Activ e FERROUS SULFATE PO Take by mouth. Activ e LACTULOSE PO Take by mouth. Ac tive Morphine Sulfate (MS CONTIN PO) Take by mouth. Acti ve Ondansetron HCl (ZOFRAN PO) Take by mouth. Act sarah SUMAtriptan (IMITREX) 6 MG/0.5ML Solution 0.5 mL by Subcutaneous route See Admin Instructions. Inject 1 dose soon after the onset of a migraine headach. A second injection may be given at least 1 hour later if the headache persists. 6 Syringe 3 9 Active cyclobenzaprine (FLEXERIL) 5 MG Tablet TAKE 1/2 TABLET AT NIGHT NEEDED FOR MUSCLE PAIN/SPASMS. DOSE MAY BE INCREASED TO 1 TABLET AT NIGHT NEEDED. 30 Tab 9 Active Additional Information Patient not taking.Reported on 07/27/2025 traMADol (ULTRAM) 50 MG TabletIndicatio ns:Chronic back pain,Chronic leg pain Take 1 Tablet by mouth every 6 hours as needed for Moderate or more severe pain. 12 Tablet 2 Active Additional Information Patient not taking.Reported on 07/27/2025 busPIRone HCl 7.5 MG Tablet Take 1 Tablet by mouth daily. 5 Active oxyCODONE (ROXICODONE) 5 MG Tablet Take 5 mg by mouth. 4 Active morphine (MS CONTIN) 30 MG Tablet Controlled Release 5 Active oxybutynin (DITROPAN-XL) 10 MG TABLET SR 24 HR Take 10 mg by mouth daily. Active methocarbamol (ROBAXIN) 750 MG Tablet Take 750 mg by mouth. 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 06/30/17 Dr Cruz Cerebral aneurysm 07/02/2017 Drug abuse 03/17/2017 Overview (03/17/2017): Neg urine and serum drug testing despite monthly narcotic refills; no more pain meds; only thru pain mgment Major depressive disorder, r ecurrent episode, moderate with anxious distress 03/05/2017 Stroke-like symptoms 01/03/2017 Migraine with aura 01/03/2017 Hypothyroidism 11/23/2016 Back pain 11/23/2016 Overview (11/23/2016): S/p spinal stimulation [facility] Left knee pain 11/23/2016 Depression 11/23/2016 Diffuse arthralgia 11/23/2016 Dizziness 11/23/2016 Anxiety 11/23/2016 GERD (gastroesophageal reflux disease) 7 Malaise and fatigue 11/23/2016 Migraine 11/23/2016 Fatty liver disease, nonalcoholic 11/23/2016 Constipation 11/23/2016 Peripheral neuropathy 11/23/2016 Raynaud disease 11/23/2016 Restless leg syndrome 11/23/2016 Shoulder pain, left 11/23/2016 S/P cholecystectomy 11/23/2016 Low vitamin B12 level 11/23/2016 Pain management counseling, encounter for 2016 Overview (11/23/2016): [facility] Fibromyalgia 11/23/2016 Chronic pain 11/23/2016 Constipation 11/23/2016 Encounters Date Type Department Care Team Description 07/28/2025 [facility] [address] [place] [address] BehrenCynthia quiñones L, DYE MACHINE TENDER, SAMPLE SAWYER XR RIBS UNILATERAL WITH PA CHEST LEFT 07/27/2025 3:45 PM CDT [facility] [place] [address] [place] [id number] Sylvie Dickinson APRN, CNP Discharge Disposition: Discharged to home or Selfcare 07/27/2025 3:20 PM CDT [facility] [place] [address] [place] [id number] Sylvie Dickinson APRN, CNP Rib pain on left side (Primary Dx) Discharge Disposition: Discharged to home or Selfcare 07/27/2025 Telephone [facility] [address] [place] [id number] Provider, None Results 07/27/2025 Travel from Last 3 Months Immunizations Immunization Administration Dates Next Due Influenza Vaccine, Quadrivalent, PF 08/01/2019,0 07/19/2018,10/22/2017 Influenza Vaccine,unspecified Formulation 2019 Influenza, Injectable, Quadrivalent 08/07/2022 Influenza, Seasonal, Injectable, Undefined 07/21 PUR FLU 3+ YRS PRES FREE QUAD IM 11/23/2016 Pneumococcal Vaccine - 13 Valent 01/05/2017 Pneumococcal Vaccine Adult - 23 Valent 1,07/21/2013 TDAP Vaccine 10/25/2017 Family History Medical History Relation Name Comments Stomach Cancer Brother Heart Disease Father Other-comment Father Muscular Scler osis Heart Disease Mother Stroke Mother Thyroid Disease Mother Ovarian Cancer Sister Uterine Cancer Sister Diabetes Son Relation Name Status Comments Brother (Age 48) Father (Age 45) Mother (Age 63) Sister (Age 60) Son Alive Social History Tobacco Use Types Packs/Day Years Used Date Smoking Tobacco: Never Smokeless Tobacco: Never Tobacco Cessation:Counseling Given: Yes Alcohol Use Standard Drinks/Week Comments Yes 0 (1 standard drink = 0.6 oz pure alcohol) rare use only, once per month and on occasion Sexually Active Control Partners Comments Never Comments No Sex and Gender Information Value Date Recorded Sex Assigned at Not on file Legal Sex Female 9:20 PM CDT Gender Identity Not on file Sexual Orientation Not on file Last Filed Vital Signs Vital Sign Reading Time Taken Comments Blood Pressure 114/66 07/27/2025 3:22 PM CDT Pulse 80 07/27/2025 3:22 PM CDT Temperature 37.1 C (98.7 F) 07/27/2025 3:22 PM CDT Respiratory Rate 20 07/27/2025 3:22 PM CDT Oxygen Saturation 97% 07/27/2025 3:22 PM CDT Inhaled Oxygen Concentration - - Weight 54.4 kg (120 lb) 01/09/2025 11:42 AM CDT Height 154.9 cm (5' 1) 01/09/2025 11:42 AM CDT Body Mass Index 22.67 01/09/2025 11:42 AM CDT Plan of Treatment Health Maintenance Due Date Last Done Comments DEXA Bone Density 1955 Hepatitis C Virus (HCV) Screening 1955 Cologuard 1999 Colonoscopy 1999 Colorectal Cancer Screening 1999 Immunochemical Fecal Occult Blood 1999 Medicare Initial AWV G0438 11/25/2004 Respiratory Syncytial Virus (RSV) Immunization (Adult) (1 - Risk 50-74 years 1-dose series) 2004 Zoster Immunization (1 of 2) 2004 Mammogram 11/24/2018 11/24/2017, 01/15/2017 Influenza Immunization (#1) 2025 02/2 02/2025, 08/07/2022, 07/25/2020, Additional history exists SARS-COV-2 Immunization ( season) 2025 Td Immunization Every 10 Years (Adults With 1 Tdap) 07/07/2034 07/07/2024, 10/25/2017 Pneumococcal Immunization (50+ years) Completed 01/01/2021, 01/05/2017, 07/21/2013 Pneumococcal Immunization Combined Discontinued 01/01/2021, 01/05/2017, 07/21/2013 TdaP Immunization Discontinued 07/07/2024, 10/25/2017 Hepatitis B Immunization Aged Out No longer eligible based on patient's age to complete this topic Human Papillomavirus (HPV) Immunization Aged Out No longer eligible based on patient's age to complete this topic Meningococcal Immunization (ACWY) Aged Out No longer eligible based on patient's age to complete this topic Rotavirus Immunization Aged Out No lo nger eligible based on patient's age to complete this topic Medical Devices Implanted Type Area Wheat Inspector Device Identifier Shelf Expiration Date Model / Serial / Lot Angioseal Vip 6fr - [id number] Implanted:Qty : 1 on 06/30/2017 by Eleuterio Cruz MD at [facility] IMPLANT Right: Arterial TERUMO / CARDIOVASCULAR SYSTEM [id number] / / [id number] Pipeline Flex [id number] Implanted:Qty : 1 on 06/30/2017 by Eleuterio Cruz MD at [facility] Left: Arterial [id number]-[id number] 0 / / [id number] Procedures Procedure Name Priority Date/Time Associated Diagnosis Comments XR RIBS UNILATERAL WITH PA CHEST LEFT Today 07/27/2025 4:16 PM CDT Rib pain on left side SMITH SCREENING BILATERAL DIGITAL W CAD Routine 01/15/2017 3:45 PM CDT Encounter for screening mammogram for malignant neoplasm of breast Breast cancer screening from Last 3 Months or Most Recently Relevant to Health Maintenance Results * XR RIBS UNILATERAL WITH PA CHEST LEFT (07/27/2025 4:16 PM CDT) Anatomical Region Laterality Modality Chest, Rib Left Digital Radiogra phy 07/27/2025 4:16 PM CDT Impressions 07/28/2025 8:01 AM CDT IMPRESSION: 1. No radiographic evidence of acute cardiopulmonary disease. 2. No displaced left rib fracture is identified. Narrative 07/28/2025 8:01 AM CDT DICTATING PHYSICIAN: Rahul Roldan M.D. EXAM: Chest and Rib Radiographs, 07/27/2025 4:16 PM. HISTORY: 69-year-old female with left-sided rib pain after fall from wheelchair yesterday. COMPARISON: 07/20/2017. FINDINGS: Chest: Single upright PA view of the chest. Cardiac silhouette and mediastinum: Normal size and contour. Pulmonary vessels: Unremarkable. Lungs: No consolidation or focal nodular opacity. Pleura: No effusion or pneumothorax. Chest wall: Partially visualized left proximal humeral antibiotic spacer with intramedullary hipolito. Partially visualized dorsal column stimulator leads project over the midthoracic spine. Degenerative changes of the right glenohumeral joint. Ribs: AP and oblique views of the left ribs are submitted for evaluation in 3 total images. No evidence of acute fracture, bony deformity or destructive lesion. . Procedure Note Rahul Roldan MD - 07/28/2025 DICTATING PHYSICIAN: Rahul Roldan M.D. EXAM: Chest and Rib Radiographs, 07/27/2025 4:16 PM. HISTORY: 69-year-old female with left-sided rib pain after fall fromwheelchair yesterday. COMPARISON: 07/20/2017. FINDINGS: Chest: Single upright PA view of the chest. Cardiac silhouette and mediastinum: Normal size and contour. Pulmonary vessels: Unremarkable. Lungs: No consolidation or focal nodular opacity. Pleura: No effusion or pneumothorax. Chest wall: Partially visualized left proximal humeral antibioticspacer with intramedullary hipolito. Partially visualized dorsal columnstimulator leads project over the midthoracic spine. Degenerative changesof the right glenohumeral joint. Ribs: AP and oblique views of the left ribs are submitted for evaluationin 3 total images. No evidence of acute fracture, bony deformity ordestructive lesion. . IMPRESSION: 1. No radiographic evidence of acute cardiopulmonary disease. 2. No displaced left rib fracture is identified. Sylvie Dickinson APRN, SAMPLE SAWYER IMG DIAGNOSTIC ORD ERABLES Final Result * SMITH SCREENING BILATERAL DIGITAL W CAD (01/15/2017 3:45 PM CDT) Anatomical Region Laterality Modality breast Bilateral Mammography 01/15/2017 3:33 PM CDT Narrative 01/18/2017 5:09 PM CDT - SMITH SCREENING BILATERAL DIGITAL W CAD BILATERAL DIGITAL SCREENING MAMMOGRAM WITH CAD WITH MEDIOLATERAL OBLIQUE CRANIOCAUDAL: 01/15/2017 The study was acquired using digital technology and interpreted from soft copy. Current study was also evaluated with ICAD version 7.2. CLINICAL: New baseline screening. Patient has no complaints. No personal history of cancer. No family history of breast cancer. COMPARISONS: None. BREAST TISSUE: There are scattered fibroglandular densities in both breasts. FINDINGS: No significant masses, calcifications, or other findings are seen in either breast. IMPRESSION: BI-RAD 1 NEGATIVE There is no mammographic evidence of malignancy. A 1 year screening mammogram is recommended. The patient has been or will be contacted. The patient will be entered into a reminder system with a target due date of 1 year for her next screening exam. Electronically signed by: Huseyni Cortez M.D. ar/:01/18/2017 09:57:10 Dispatch Machine Runner: Ele Snell(Rajinder), [facility] letter sent: Normal Exam Reading location: [facility] BI-RADS: 1 Negative Procedure Note Huseyin Cortez MD - 01/18/2017 - SMITH SCREENING BILATERAL DIGITAL W CAD BILATERAL DIGITAL SCREENING MAMMOGRAM WITH CAD WITH MEDIOLATERAL OBLIQUE CRANIOCAUDAL: 01/15/2017 The study was acquired using digital technology and interpreted from soft copy. Current study was also evaluated with ICAD version 7.2. CLINICAL: New baseline screening. Patient has no complaints. No personal history of cancer. No family history of breast cancer. COMPARISONS: None. BREAST TISSUE: There are scattered fibroglandular densities in both breasts. FINDINGS: No significant masses, calcifications, or other findings are seen in either breast. IMPRESSION: BI-RAD 1 NEGATIVE There is no mammographic evidence of malignancy. A 1 year screening mammogram is recommended. The patient has been or will be contacted. The patient will be entered into a reminder system with a target due date of 1 year for her next screening exam. Electronically signed by: Huseyin Cortez M.D. 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 PRE-ARREST: Use entire range of life support measures to stabilize the patient. * Full Code Date Activated Date Inactivated Comments 01/04/2017 3:53 PM 01/05/2017 7:10 PM CPR-Full Juanjo atment: FULL ARREST: Attempt Resuscitation/CPR wit intubation and mechanical ventilation. PRE-ARREST: Use entire range of life support measures to stabilize the patient. Care Teams Senior Drafter Relationship Specialty Start Date End Date Caitlin Gleason, DYE MACHINE TENDER, SAMPLE SAWYER PCP - General Advanced Practice Nurse 12/07/18
--- OUTSIDE RECORDS SUMMARY | 2025-08-22 14:36 | XMS_ITS | Clinical Summary ---
Author Organization [facility] Address [address] [place] [address] Phone Care Team Providers Care Dialysis Technician Name Role Phone JORGE A LOYA, FABIOLA Unavailable [phone] DENEEN BEAL MD Primary Care Provider [phone] Reason for Visit and Chief Complaint NO SHOW Plan of Treatment No Plan of Treatment Recorded Assessments Includes: Assessments from this encounter No Assessments Recorded Medical Equipment - Implanted Devices Includes: Current Devices No Medical Equipment Recorded Medications Includes: Medications discussed during this encounter and other current Medications Current Medications (continue as prescribed) DULoxetine HCl 60 MG Oral Ca psule Delayed Release Particles 01/05/2022 Provider: BOB BLISS APRN-YORDYA, IVETT-BC Diagnosis: TAKE ONE CAPSULE BY MOUTH AT BEDTIME Last Documented On 2 2:43PM By BOB TINEO ; [facility] DULoxetine HCl 60 MG Oral Capsule Delayed Release Particles 10/07/2021 Provider: SG WILKES Diagnosis: Postlaminectomy syndrome, not elsewhere classified TAKE ONE CAPSULE BY MOUTH AT BEDTIME Last Documented On 1 8:27AM By SG WILKES ; [facility] Xtampza ER 13.5 MG Oral Caps ule ER 12 Hour Abuse-Deterrent 09/17/2021 Provider: SG Mullen-ISMAEL Diagnosis: 1 tab every 12 hours by mouth Last Documented On 1 5:51PM By SG WILKES ; [facility] oxyCODONE-Acetaminophen 10-3 25 MG Oral Tablet 09/17/2021 Provider: SG SY Diagnosis: 1 po tid prn Last Documented On 1 5:51PM By SG JACOBSON ; [facility] DULoxetine HCl 30 MG Oral Capsule Delayed Release Particles 09/11/2021 Provider: SG WILKES Diagnosis: Postlaminectomy syndrome, not elsewhere classified 1 capsule daily in am Last Documented On 3:59PM By SG JACOBSON ; [facility] Pregabalin 150 MG Oral Capsule 09/11/2021 Provider: SG JACOBSON Diagnosis: Other spondylosi s with radiculopathy, lumbar region 1 CAPSULE TWO TIMES A DAY Last Documented On 3:59PM By SG JACOBSON ; [facility] Lisinopril 5 MG Oral Tablet 08/21/2021 Provider: Diagnosis: Last Documented On 08/21/2021 2:09PM By Alison SANDERS ; [facility] Diclofenac Sodium 2% External Solution 08/21/2021 Pr ovider: Diagnosis: Last Documented On 08/21/2021 2:14PM By Alison SANDERS ; [facility] Esomeprazole Magnesium 40 MG Oral Capsule Delayed Rele ase 08/21/2021 Provider: Diagnosis: Last Documented On 08/21/2021 2:15PM By Alison SANDERS ; [facility] Ferrous Fumarate 325 (106 Fe) MG Oral Tablet Provider: Diagnosis: Last Documented On 08/21/2021 2:15PM By Alison SANDERS ; [facility] Levothyroxine Sodium 50 MCG Oral Capsule 08/21/2021 Provider: Diagnosis: Last Documented On 08/21/2021 2:16PM By Alison SANDERS ; [facility] Oxybutynin Chloride 5 MG Oral Tablet 08/21/2021 Prov ider: Diagnosis: Last Documented On 08/21/2021 2:16PM By Alison SANDERS ; [facility] Sennosides-Docusate Sodium 8.6-50 MG Oral Capsule 07/26 Provider: Diagnosis: Last Documented On 08/21/2021 2:14PM By Alison SANDERS ; [facility] Polyethylene Glycol 3350 Powder 08/21/2021 Provider: Diagnosis: Last Documented On 08/21/2021 2:14PM By Alison SANDERS ; [facility] Ondansetron HCl 4 MG Oral Tablet 08/21/2021 Provider : Diagnosis: Last Documented On 08/21/2021 2:12PM By Alison SANDERS ; [facility] Docusate Sodium 100 MG Oral Capsule 08/21/2021 Provi ravi: Diagnosis: Last Documented On 08/21/2021 2:12PM By Alison SANDERS ; [facility] SUMAtriptan Succinate 6 MG/0 .5ML Subcutaneous Solution Auto-injector 08/21/2021 Provider: Diagnosis: Last Documented On 08/21/2021 2:11PM By Alison SANDERS ; [facility] Lyrica 100 MG Oral Capsule 08/21/2021 Provider: Rajinder SMITH APN Diagnosis: Other spondylosi s with radiculopathy, lumbar region 1 CAPSULE TWO TIMES A DAY.St art 08/22. Discontinue use of Gabapentin. Last Documented On 08/21/2021 3:34PM By Vicenta Smith APN ; [facility] HM Lidocaine Patch 4% External 08/21/2021 Provider: Diagnosis: Last Documented On 08/21/2021 2:09PM By Alison SANDERS ; [facility] Fluticasone Propionate 50 MCG/ACT Nasal Suspension 08/21/2021 Provider: Diagnosis: Last Documented On 08/21/2021 2:08PM By Alison SANDERS ; [facility] Cyclobenzaprine HCl 5 MG Oral Tablet 08/21/2021 Prov ider: Diagnosis: Last Documented On 08/21/2021 2:08PM By Alison SANDERS ; [facility] Relistor 12 MG/0.6ML Subcutaneous Solution 08/21/2021 Provider: Diagnosis: Last Documented On 08/21/2021 2:07PM By Alison SANDERS ; [facility] Narcan 4 MG/0.1ML Nasal Liquid 08/21/2021 Provider: Diagnosis: Last Documented On 08/21/2021 2:07PM By Alison SANDERS ; [facility] Medications Administered Includes: Administered Medications from this encounter No Administered Medications Recorded Results Includes: Results discussed during this encounter No Results Recorded For Specified Dates History of Present Illness Includes: History of Present Illness from this encounter No History of Present Illness Recorded Social History No Social History Recorded - Smoking Status Unknown Medical History Includes: Medical History addressed during this encounter No Medical History Recorded Family History Includes: Family History addressed during this encounter No Family History Recorded Review of Systems Includes: Review of Systems from this encounter No Review of Systems Recorded Mental Status Includes: Mental Status from this encounter No Mental Status Recorded Functional Status Includes: Functional Status from this encounter No Functional Status Recorded Physical Exam Includes: Physical Exam from this encounter No Physical Exam Recorded Allergies Includes: Active Allergies No Known Allergies Insurance Includes: Active Insurance Policies Plan Name Member ID Group # Subscriber Relationship Effect sarah Dates 1 - [facility] [id number] MAGDALENO wong Clinical Notes Includes: Clinical Notes from this encounter No Clinical Notes Recorded
--- OUTSIDE RECORDS SUMMARY | 2025-08-22 14:36 | XMS_ITS | Encounter Summary ---
Author Organization [facility] Address Formerly [facility] [place] [address] Care Team Providers Care Regional Refrigerated Cdl Truck Driver Name Role Phone Bradley Nuno DO Primary Care Provider [phone] Encounter Details Date Type Department Care Team (Late st Contact Info) Description 03/09/2024 Hospital Orders Only [facility] Pre[facility] [address] [place] [address] Kaleb Costa MD [address] [place] [address] Social History Tobacco Use Types Packs/Day Years Used Date Smoking Tobacco: Never Assessed Comments Unknown Sex and Gender Information Value [...] documented as of this encounter Care Teams Regional Refrigerated Cdl Truck Driver Relationship Specialty Start Date End Date Bradley Nuno DO [address] [place] [address] PCP - General FAMILY PRACTICE 03/30/24 documented as of this encounter
--- OUTSIDE RECORDS SUMMARY | 2025-08-22 14:36 | XMS_ITS | Clinical Summary ---
Author Organization [facility] Address [address] [place] [address] Care Team Providers Care Wire Turning Machine Operator Name Role Phone Juan Aguilera MD Primary Care Provider [phone] Source Comments [facility],non-[facility] Affiliates and Associated Physician Practices is amultiple site organization consisting of ambulatory clinics and hospital sitesin [place], [place], [place] and [place]. This disclosure is being madepursuant to the Care Everywhere program and may not contain all information available regarding this patient. Last updated 18.[facility] [employer] Social History Tobacco Use Types Packs/Day Years Used Date Smoking Tobacco: Never Assessed Comments Unknown Sex and Gender Information Value Date Recorded Sex Assigned at Not on file Legal Sex Female 5:33 AM SENIOR NET ARCHITECT Gender Identity Not on file Sexual Orientation Not on file Last Filed Vital Signs Vital Sign Reading Time Taken Comments Blood Pressure 103/68 03/04/2017 9:07 AM CDT Pulse 58 03/04/2017 9:07 AM CDT Temperature 36.5 C (97.7 F) 03/04/2017 9:07 AM CDT Respiratory Rate - - Oxygen Saturation - - Inhaled Oxygen Concentration - - Weight 65.8 kg (145 lb) 03/04/2017 9:07 AM CDT Height 152.4 cm (5') 03/04/2017 9:07 AM CDT Body Mass Index 28.32 03/04/2017 9:07 AM CDT Plan of Treatment Health Maintenance Due Date Last Done Comments BONE DENSITY TESTING 1954 COLOGUARD (AGES 45-75) - COL ON CA SCREENING 1954 COLON MONITORING 1954 COLONOSCOPY - COLON CA SCREENING 1954 CT COLONOGRAPHY - COLON CA SCREENING 1954 Colorectal Cancer Screening 1954 FIT - COLON CA SCREENING 1954 FLEX SIG - COLON CA SCREENING 1954 LIPID TESTING 1954 MAMMOGRAM 1954 HEPATITIS C SCREENING 12/05/1972 DTAP/TDAP/TD VACCINES (1 - Tdap) 1973 PNEUMOCOCCAL VACCINE 50+ (1 of 1 - PCV) 2004 ZOSTER VACCINE (1 of 2) 2004 DEPRESSION SCREENING 10/25/2024 MEDICARE AWV CALENDAR YEAR 2024 COVID-19 VACCINE (1 - 2023-2 5 season) 2025 INFLUENZA VACCINE (#1) 2025 11/23/2016 Respiratory Syncytial Virus (RSV) Vaccine Pt: or over 60 yrs (1 - 1-dose 75+ series) 2029 HEPATITIS B VACCINE Aged Out No longe r eligible based on patient's age to complete this topic HIB VACCINE Aged Out No longer eligi ble based on patient's age to complete this topic HPV VACCINE Aged Out No longer eligi ble based on patient's age to complete this topic MENINGOCOCCAL (Group B) VACC INE SHARED DECISION-MAKING Aged Out No longer eligibl e based on patient's age to complete this topic MENINGOCOCCAL GROUPS A/C/Y/W VACCINE Aged Out No longer eligible b ased on patient's age to complete this topic Insurance [employer] [facility] [place] [address] SELF PAY NO INSURANCE Member Subscriber Plan / Payer (Ef fective for All Dates) Name:Joyce Benitez Member ID:Not on file Relation to Subscriber:Not on file Name:JOYCE BENITEZ Subscriber ID:Not on file (Home) Address: [id number] [place] [id number] Payer ID:Not on file Group ID:Not on file Type:Self Pay Address: [facility] MANAGED MEDICARE ADV SELF PAY NO INSURANCE Member Subscriber Plan / Payer (Ef fective for All Dates) Name:Joyce Benitez Member ID:Not on file Relation to Subscriber:Not on file Name:JOYCE BENITEZ Subscriber ID:Not on file (Home) Address: [address] [place], [place] [id number] Payer ID:Not on file Group ID:Not on file Type:Self Pay Address: [facility] MANAGED MEDICARE ADV Member Subscriber Plan / Payer (Ef fective 2024-Present) Name:Joyce Benitez Relation to Subscriber:Self Name:Joyce Benitez Payer ID:[id number] (NAIC) Type:Medicare-Managed Care Address: [address] SELF PAY NO INSURANCE Member Subscriber Plan / Payer (Ef fective for All Dates) Name:Joyce Benitez Member ID:Not on file Relation to Subscriber:Not on file Name:JOYCE BENITEZ Subscriber ID:Not on file (Home) Address: [address] [place] [address] Payer ID:Not on file Group ID:Not on file Type:Self Pay Address: [facility] MANAGED MEDICARE ADV Member Subscriber Plan / Payer (Ef fective 2024-Present) Name:Joyce Benitez Relation to Subscriber:Self Name:Joyce Benitez Payer ID:[id number] (NAIC) Type:Medicare-Managed Care Address: [place] [phone] Care Teams Wire Turning Machine Operator Relationship Specialty Start Date End Date Juan Aguilera MD PCP - General 08/17/18
--- OUTSIDE RECORDS SUMMARY | 2025-08-22 14:36 | XMS_ITS | Encounter Summary ---
Author Organization [facility] Address [address] [place] [address] Phone Care Team Providers Care Rn Delivery Name Role Phone Caitlin Gleason APRN, CNP Primary Care Provide r Encounter Details Date Type Department Care Team (Late st Contact Info) Description 07/28/2025 Results Follow-Up [facility] - [facility] [address] [place] [phone] Cynthia Mckeon APRN, CNP [address] [place] [address] XR RIBS UNILATERAL WITH PA CHEST LEFT Social History Tobacco Use Types Packs/Day Years Used Date Smoking Tobacco: Never Smokeless Tobacco: Never Alcohol Use Standard Drinks/Week Comments Yes 0 [...] filedocumented in this encounter Additional Health Concerns Assessment Noted Time PHQ-9 Depression Total Score: 0 11/23/19 17 8:42 AM PCTS documented as of this encounter Care Teams Rn Delivery Relationship Specialty Start Date End Date Caitlin Gleason APRN, CNP PCP - General Advanced Practice Nurse 12/07/18 documented as of this encounter
--- OUTSIDE RECORDS SUMMARY | 2025-08-22 14:36 | XMS_ITS | Encounter Summary ---
Author Organization [facility] Address [address] [place] [address] Care Team Providers Care Patient Access Manager Name Role Phone Bradley Nuno DO Primary Care Provider [phone] Encounter Details Date Type Department Care Team (Late st Contact Info) Description 04/03/2024 Hospital Orders Only [facility] Anesthesia [address] [place] [address] Gaviota Coronado RN Anesthesia Record Procedure Summary Procedure Name Responsible Anesthesiologist Anesthesia Start Time Anesthesia Stop Time SJS CATH 5-6 90MIN+ANES Events No events on file. Meds * Agents No agents on file. * Blood No blood administrations on file. Lines, Drains, and Airways No LDAs on file. documented in this encounter Social History Tobacco Use Types Packs/Day Years [...] documented as of this encounter Care Teams Patient Access Manager Relationship Specialty Start Date End Date Bradley Nuno DO [address] [place] [address] PCP - General FAMILY PRACTICE 03/30/24 documented as of this encounter
--- OUTSIDE RECORDS SUMMARY | 2025-08-22 14:36 | XMS_ITS | Clinical Summary ---
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 typical week, how many times do you talk on the phone with family, friends, or neighbors? More than three times a week 12/17/2024 How often do you get togethe r with friends or relatives? More than three times a week 12/17/2024 How often do you attend [facility] or congregation services? Patient unable to answer 12/17/2024 Do you belong to any clubs o r organizations such as sabianist groups, unions, fraternal or athletic groups, or school groups? Patient unable to answer 12/17/2024 How often do you attend meet ings of the clubs or organizations you belong to? Patient unable to answer 12/17/2024 Are you , , di vorced, , never , or living with a partner? 12/17/2024 AUDIT-C Answer Date Recorded Q1: How often do you have a drink containing alc ohol? Monthly or less 12/01/2024 Q2: How many drinks containi ng alcohol do you have on a typical day when you are drinking? 1 or 2 12/01/2024 Q3: How often do you have si x or more drinks on one occasion? Never 12/01/2024 Overall Financial Resource Strain (CARDIA) Answe r Date Recorded How hard is it for you to pa y for the very basics like food, housing, medical care, and heating? Patient unable to answer 12/17/2024 PHQ-2 Answer Date Recorded PHQ-2 Total Score (If total score is 3 or more points, staff should administer the PHQ-9) 2 05/06/2022 [facility] - Occupational Stress Questionnaire Answer Date Recorded Do you feel stress - tense, restless, nervous, or anxious, or unable to sleep at night because your mind is troubled all the time - these days? Very much 02/24/2024 Exercise Vital Sign Answer Date Recorde d On average, how many days pe r week do you engage in moderate to strenuous exercise (like a brisk walk)? 7 days 02/24/2024 On average, how many minutes do you engage in exercise at this level? 30 min 02/24/2024 Hunger Vital Sign Answer Date Recorded Within the past 12 months, y ou worried that your food would run out before you got the money to buy more. Patient unable to answer 12/17/2024 Within the past 12 months, t he food you bought just didn't last and you didn't have money to get more. Patient unable to answer 12/17/2024 PRAPARE - Transportation Answer Date Re corded In the past 12 months, has l ack of transportation kept you from medical appointments or from getting medications? No 11/26 In the past 12 months, has l ack of transportation kept you from meetings, work, or from getting things needed for daily living? No 12/17/2024 Housing Stability Vital Sign Answer Jef e Recorded In the last 12 months, was t here a time when you were not able to pay the mortgage or rent on time? No 02/26/2024 In the last 12 months, how many places have you lived? 1 02/26/2024 In the last 12 months, was t here a time when you did not have a steady place to sleep or slept in a long term (including now)? No 02/26/2024 Housing Stability Vital Sign Answer Jef e Recorded In the last 12 months, was t here a time when you were not able to pay the mortgage or rent on time? Patient unable to answer 12/17/2024 In the past 12 months, how m any times have you moved where you were living? 0 12/17/2024 At any time in the past 12 m [facility], were you homeless or living in a long term (including now)? Patient unable to answer 12/17/2024 Personal Safety Answer Date Recorded Have you ever been in or are you currently in a harmful physical or emotional relationship or is someone making you feel afraid or unsafe? Denies 12/16/2024 Comments No Sex and Gender Information Value Date Recorded Sex Assigned at Not on file Legal Sex Female 12:45 AM TUB MENDER Gender Identity Not on file Sexual Orientation Not on file Obstetrics History Para Term AB IAB SAB Ectopic Multiple Livin g Live Births 3 3 3 Date Outcome GA Total Labor Labor/2nd/3rd Weight Sex Type Anes PTL Kallie A1 A5 Name Clin Term Term Term Last Filed Vital Signs Vital Sign Reading Time Taken Comments Blood Pressure 124/78 03/09/2025 10:51 AM CDT Pulse 68 03/09/2025 10:51 AM CDT Temperature 36.4 C (97.6 F) 03/09/2025 10:51 AM CDT Respiratory Rate 16 03/09/2025 10:51 AM CDT Oxygen Saturation 96% 03/09/2025 10:51 AM CDT Inhaled Oxygen Concentration - - Weight 52.2 kg (115 lb) 12/22/2024 10:51 AM TUB MENDER Height 154.9 cm (5' 1) 12/22/2024 10:51 AM TUB MENDER Body Mass Index 21.73 12/22/2024 10:51 AM TUB MENDER Plan of Treatment Health Maintenance Due Date Last Done Comments Osteoporosis Screening-Bone Density Scan 1954 Hepatitis B Screening 1972 Zoster Vaccine (1 of 2) 2004 Breast Cancer Screening-Mammogram 11/24/2019 11/24/2017, 11/24/2017, 01/15/2017 Well Visit 65+ 12/07/2020 12/07/2019 Depression Screening 05/06/2023 05/06/2022, 01/07/2022, 01/07/2022, Additional history exists Influenza Vaccine (#1) 2025 , 08/07/2022, 07/25/2020, Additional history exists Fall Risk Assessment 12/19/2025 12/19/2024, 05/06/2022, 01/01/2021, Additional history exists Colon Cancer Screening-Colonoscopy 01/13/2028 01/12/2018, 01/12/2018 DTaP/Tdap/Td Vaccine (3 - Td or Tdap) 07/07/2034 07/07/2024, 10/25/2017 Colon Cancer Screening-CT Colonography Discontinued 01/12/2018, 01/12/2018 Colon Cancer Screening-DNA Stool Discontinued 01/13/20 18, 01/12/2018 Colon Cancer Screening-FIT Discontinued 01/12/2018, Colon Cancer Screening-Sigmoidoscopy Discontinued 01/12/2018, 01/12/2018 Pneumococcal vaccine 65+ Completed 021, 01/05/2017, 07/21/2013 Hepatitis C Screening Completed 02/24/2024 , 08/01/2019, 08/01/2019 Medical Devices Implanted Type Area Beef Splitter Device Identifier Shelf Expiration Date Model / Serial / Lot DepFoxconn International Holdings Orthopaedics Inc [id number] Attune Od14 Mm L130 Mm Cement Revision Knee Stem Femoral Sterile - [id number] Implanted:Qty: 1 on 04/14/2021 by Jabier Torres MD at [facility] Left: Knee Limtel Orthopaedics Inc 01/22/2030 [id number] / / [id number] Lupatech [id number] Attune L29 Mm Revision Partial Coated Knee Sleeve Tibial Porocoat Sterile Latex Free - [id number] Implanted:Qty: 1 on 04/14/2021 by Jabier Torres MD at [facility] Left: Knee Depuy Orthopaedics Inc 02/21/2029 [id number] / / [id number] Depuy Orthopaedics Inc [id number] Pfc Sigma 13mm 150mm Cemented Knee Taper Stem Femoral - [id number] Implanted:Qty: 1 on 04/14/2021 by Jabier Torres MD at [facility] Left: Knee Depuy Orthopaedics Inc 06/24/2028 [id number] / / [id number] Depuy Orthopaedics Inc [id number] Cemented Knee Femoral 20mm Atkins Sleeve Adapter Sterile Latex Free - [id number] Implanted:Qty: 1 on 04/14/2021 by Jabier Torres MD at [facility] Left: Knee Depuy Orthopaedics Inc 02/21/2029 [id number] / / [id number] Depuy Synthes [employer]olven Software [id number] Attune Revision Cement Rotate Platform Knee 3 Baseplate Tibial - [id number] Implanted:Qty: 1 on 04/14/2021 by Jabier Torres MD at [facility] Left: Knee Depuy Orthopaedics Inc 07/24/2029 [id number] / / [id number] Depuy Orthopaedics Inc [id number] S-Rom Noiles Lps 68z25uh Rotate Hinge Pin Bumper Stop Load Share - [id number] Implanted:Qty: 1 on 04/14/2021 by Jabier Torres MD at [facility] Left: Knee Depuy Orthopaedics Inc 12/22/2024 [id number] / / [id number] [employer] 6195-1-001 Cement Bone Simplex Gentamicin High Viscosity 40gm - [id number] Implanted:Qty: 1 on 04/14/2021 by Jabier Torres MD at [facility] Left: Knee Tere [employer] 02/21/2022 6195-1-001 / / [id number] [employer] 6195-1-001 Cement Bone Simplex Gentamicin High Viscosity 40gm - [id number] Implanted:Qty: 1 on 04/14/2021 by Jabier Torres MD at [facility] Left: Knee [employer] 01/22/2022 6195- / / [id number] [employer] 6195 Cement Bone Simplex Gentamicin High Viscosity 40gm - [id number] Implanted:Qty: 1 on 04/14/2021 by Jabier Torres MD at [facility] Left: Knee [employer] 01/22/2022 6195- / / [id number] [employer] 6195 Cement Bone Simplex Gentamicin High Viscosity 40gm - [id number] Implanted:Qty: 1 on 04/14/2021 by Jabier Torres MD at [facility] Left: Knee [employer] 02/21/2022 6195 / / [id number] Attune Knee System Revision Lps Insert Aox 12mm X Small Implanted:Qty: 1 on 04/14/2021 by Jabier Torres MD at [facility] Left: Knee Attune Medical [id number] 01/22/2025 [id number] / / [id number] Tere Medical [id number] Bioprep Preparation Plug Technician Automatic [place] Curette Suction Femoral - [id number] Implanted:Qty: 1 on 04/14/2021 by Jabier Torres MD at [facility] Left: Knee [employer] [id number] / / Tere [employer] 6195-001 Cement Bone Simplex Gentamicin High Viscosity 40gm - [id number] Implanted:Qty: 1 on 08/27/2021 by Jabier Torres MD at [facility] Right: Knee [employer] 10/24/2022 6195- / / [id number] [employer] 6195 Cement Bone Simplex Gentamicin High Viscosity 40gm - [id number] Implanted:Qty: 1 on 08/27/2021 by Jabier Torres MD at [facility] Right: Knee [employer] 10/24/2022 6195- / / [id number] Depuy Orthopaedics Inc [id number] Attune Cemented Posterior Stabilize Knee Right 4 Component - [id number] Implanted:Qty: 1 on 08/27/2021 by Jabier Torres MD at [facility] Right: Knee Depuy Orthopaedics Inc 05/24/2031 [id number] / / [id number] Depuy Orthopaedics Inc [id number] Attune S+ Cement Fix Bearing Knee 3 Baseplate Tibial - [id number] Implanted:Qty: 1 on 08/27/2021 by Jabier Torres MD at [facility] Right: Knee Depuy Orthopaedics Inc 05/24/2031 [id number] / / [id number] Depuy Orthopaedics Inc [id number] Attune 5mm Posterior Stabilize Fix Bearing Knee 4 Insert Tibial - [id number] Implanted:Qty: 1 on 08/27/2021 by Jabier Torres MD at [facility] Right: Knee Depuy Orthopaedics Inc 08/24/2024 [id number] / / [id number] Vasquez & Nephew/Richco/Ort ho Cable Bone Cerclage With Crimp Evos Stainless Steel 83596943 - [id number] Implanted:Qty: 1 on 02/24/2024 by Chela Greene MD at [facility] Left: Femur [employer] Nephew/Richco/O rtho 10/07/2027 [id number] / / [id number] Vasquez [employer] Nephew/Richco/Ort ho Screw Bone Cortical St Non Locking Evos 3.5x30mm Ss [id number] - [id number] Implanted:Qty: 2 on 02/24/2024 by Chela Greene MD at [facility] Left: Femur Vas[employer] Nephew/Richco/O rtho [id number] / / Vasquez & Nephew/Richco/Ort ho Evos 3.5mm 32mm Self Tap Cortex Screw Bone Sterile 74498011 - [id number] Implanted:Qty: 1 on 02/24/2024 by Chela Greene MD at [facility] Left: Femur Vasquez [employer] Nephew/Richco/O rtho [id number] / / Vasquez & Nephew/Richco/Ort ho Evos 3.5mm 28mm Self Tap Cortex Screw Bone Sterile 72958177 - [id number] Implanted:Qty: 3 on 02/24/2024 by Chela Greene MD at [facility] Left: Femur Vasquez [employer] Nephew/Richco/O rtho [id number] / / Vasquez & Nephew/Richco/Ort ho Evos 3.5mm 22mm Self Tap Cortex Screw Bone Sterile 68226645 - [id number] Implanted:Qty: 2 on 02/24/2024 by Chela Greene MD at [facility] Left: Femur Vasquez [employer] Nephew/Richco/O rtho [id number] / / Vasquez & Nephew/Richco/Ort ho Evos 3.5mm 75mm Self Tap Cortex Screw Bone Sterile 28548579 - [id number] Implanted:Qty: 1 on 02/24/2024 by Chela Greene MD at [facility] Left: Femur Vasquez [employer] Nephew/Richco/O rtho [id number] / / Vasquez & Nephew/Richco/Ort ho Evos 3.5mm 26mm Self Tap Cortex Screw Bone Sterile 73837020 - [id number] Implanted:Qty: 1 on 02/24/2024 by Chela Greene MD at [facility] Left: Femur Vas[employer] Nephew/Richco/O rtho [id number] / / Vasquez & Nephew/Richco/Ort ho Evos 3.5mm 80mm Self Tap Lock Screw Bone Sterile 08620202 - [id number] Implanted:Qty: 3 on 02/24/2024 by Chela Greene MD at [facility] Left: Femur Vasquez [employer] Nephew/Richco/O rtho [id number] / / Vasquez & Nephew/Richco/Ort ho Evos 3.5mm 26mm Self Tap Lock Screw Bone Sterile 39371822 - [id number] Implanted:Qty: 1 on 02/24/2024 by Cheal Greene MD at [facility] Left: Femur Vasquez [employer] Nephew/Richco/O rtho [id number] / / Vasquez & Nephew/Richco/Ort ho Evos 139mm 12 Hole Lock Compression Plate Bone Sterile 3.5mm 43414269 - [id number] Implanted:Qty: 1 on 02/24/2024 by Chela Greene MD at [facility] Left: Femur Vasquez [employer] Nephew/Richco/O rtho [id number] / / 12 Hole Periprosthetic Proximal Femur Plate Implanted:Qty: 1 on 02/24/2024 by Chela Greene MD at [facility] Left: Femur Vasquez & Nephew [id number] / / Description:[id number] INACTIVE. Vasquez & Nephew/Richco/Ort ho Evos 3.5mm 20mm Self Tap Cortex Screw Bone Sterile 61314631 - [id number] Implanted:Qty: 1 on 02/24/2024 by Chela Greene MD at [facility] Left: Femur Vasquez [employer] Nephew/Richco/O rtho [id number] / / Depuy Orthopaedics Inc Insert Attune Knee System Revision Lps Aox 12mm Xx-Small [id number] - [id number] Implanted:Qty: 1 on 12/01/2024 by Huang Chilel MD PhD at [facility] Left: Femur Depuy Orthopaedics Inc [id number] 03/24/2026 083218132 / / [id number] Depuy Orthopaedics Inc Articul/Weston 28mm Hip +5mm 12/14 Taper Head Femoral Cocr Sterile Latex Free 136 - [id number] Implanted:Qty: 1 on 12/01/2024 by Huang Chilel MD PhD at [facility] Left: Femur Depuy Orthopaedics Inc [id number] 09/23/2029 1365-12-000 / / [id number] Depuy Orthopaedics Inc Articul/Weston Lps 70mm Suture Hole Female Taper Antirotation Tab 003218545 - [id number] Implanted:Qty: 1 on 12/01/2024 by Huang Chilel MD PhD at [facility] Left: Femur Depuy Orthopaedics Inc [id number] 01/22/2030 [id number] / / [id number] Depuy Orthopaedics Inc Lps 55mm Male To Male Taper Antirotation Slot Component Segmental 579663512 - [id number] Implanted:Qty: 1 on 12/01/2024 by Huang Chilel MD PhD at [facility] Left: Femur Depuy Orthopaedics Inc [id number] 07/24/20341986618095766 / / [id number] Depuy Orthopaedics Inc Self-Centering 43mm 28mm Hip Femur Head Bipolar Sterile Hua 622511564 - [id number] Implanted:Qty: 1 on 12/01/2024 by Huang Chilel MD PhD at [facility] Left: Femur Depuy Orthopaedics Inc [id number] 07/24/2029 962336076 / / [id number] Depuy Orthopaedics Inc Lps 125mm Male To Female Taper Antirotation Tab Slot Component 421039883 - [id number] Implanted:Qty: 1 on 12/01/2024 by Huang Chilel MD PhD at [facility] Left: Femur Depuy Orthopaedics Inc [id number] 09/23/20321986810339577 / / [id number] Depuy Orthopaedics Inc Lps 25mm Male To Female Taper Antirotation Tab Slot Component 059653308 - [id number] Implanted:Qty: 1 on 12/01/2024 by Huang Chilel MD PhD at [facility] Left: Femur Depuy Orthopaedics Inc [id number] 06/24/20331986046316389 / / [id number] Depuy Orthopaedics Inc Lps 25mm Male To Female Taper Antirotation Tab Slot Component 268666808 - [id number] Implanted:Qty: 1 on 12/01/2024 by Huang Chilel MD PhD at [facility] Left: Femur Depuy Orthopaedics Inc [id number] 06/24/20341986256755730 / / [id number] Depuy Orthopaedics Inc Lps Taper Female Antirotation Tab Knee Left 2xs Component Femoral 612983520 - [id number] Implanted:Qty: 1 on 12/01/2024 by Huang Chilel MD PhD at [facility] Left: Femur Depuy Orthopaedics Inc [id number] 05/24/20291986254398077 / / [id number] Depuy Orthopaedics Inc Articul/Weston 28mm Hip +5mm 12/14 Taper Head Femoral Cocr Sterile Latex Free 1365-12-000 - [id number] Implanted:Qty: 1 on 12/01/2024 by Huang Chilel MD PhD at [facility] Left: Femur Depuy Orthopaedics Inc [id number] 09/23/2029 1365-12-000 / / [id number] Explanted Type Area Beef Splitter Device Identifier Shelf Expiration Date Model / Serial / Lot Biocomposites [id number] Stimulan Rapid Cure Kit Paste Ophthalmic Assistant 10cc 20cc Bone Void - [id number] Implanted:Qty: 1 on 09/28/2018 by Jabier Torres MD at [facility] Explanted:Qty: 1 on 04/14/2021 by Jabier Torres MD at [facility] Left: Knee Biocomposites 04/23/2021 [id number] / / 04/11-R374/3 75 Description:1.2 G tobramycin powder with 1 G of vancomycin powder used to mix stimulan rapid cure for antibiotic beads Depuy Orthopaedics Inc [id number] Lps 16mm Bearing Hinge Flat Anterior Surface Hyperextension Stop - [id number] Implanted:Qty: 1 on 09/28/2018 by Jabier Torres MD at [facility] Explanted:Qty: 1 on 04/14/2021 by Jabier Torres MD at [facility] Left: Knee Depuy Orthopaedics Inc 08/24/2022 [id number] / / [id number] Cement Bone Palacos R+G Gentamicin High Viscosity - [id number] Implanted:Qty: 1 on 09/28/2018 by Jabier Torres MD at [facility] Explanted:Qty: 1 on 04/14/2021 by Jabier Torres MD at [facility] Left: Knee [employer] Inc 05/24/2021 [id number] / / [id number] Cement Bone Palacos R+G Gentamicin High Viscosity - [id number] Implanted:Qty: 1 on 09/28/2018 by Jabier Torres MD at [facility] Explanted:Qty: 1 on 04/14/2021 by Jabier Torres MD at [facility] Left: Knee [employer] Inc 05/24/2021 [id number] / / [id number] Depuy Orthopaedics Inc [id number] Mbt [id number] Revision Knee Metaphyseal Sleeve Tibial Porous Latex Free - [id number] Implanted:Qty: 1 on 09/28/2018 by Jabier Torres MD at [facility] Explanted:Qty: 1 on 04/14/2021 by Jabier Torres MD at [facility] Left: Knee [employer]uy Orth[employer] Inc 10/25/2023 [id number] / / [id number] Depuy Orthopaedics Inc [id number] Cemented Knee Femoral 20mm Atkins Sleeve Adapter Sterile Latex Free - [id number] Implanted:Qty: 1 on 09/28/2018 by Jabier Torres MD at [facility] Explanted:Qty: 1 on 04/14/2021 by Jabier Torres MD at [facility] Left: Knee [employer]uy Orthopaed[employer] Inc 06/25/2023 [id number] / / [id number] Depuy Orthopaedics Inc [id number] S-Rom Noiles Lps [id number] Rotate Hinge Pin Bumper Stop Load Share - [id number] Implanted:Qty: 1 on 09/28/2018 by Jabier Torres MD at [facility] Explanted:Qty: 1 on 04/14/2021 by Jabier Torres MD at [facility] Left: Knee [employer]uy Orth[employer]edics Inc 08/24/2022 [id number] / / [id number] Depuy Orthopaedics Inc [id number] 14mm 115mm Press Fit Knee Atkins Flute Stem Femoral - [id number] Implanted:Qty: 1 on 09/28/2018 by Jabier Torres MD at [facility] Explanted:Qty: 1 on 04/14/2021 by Jabier Torres MD at [facility] Left: Knee [employer]uy Orth[employer] Inc 04/23/2028 [id number] / / [id number] Depuy Orthopaedics Inc 705286 14mm 115mm Press Fit Knee Atkins Flute Stem Femoral - [id number] Implanted:Qty: 1 on 09/28/2018 by Jabier Torres MD at [facility] Explanted:Qty: 1 on 04/14/2021 by Jabier Torres MD at [facility] Left: Knee [employer] Inc 12/24/2023 [id number] / / [id number] Depuy Orth[employer]ed[employer] Inc [id number] Mbt 64.6x42.6x4.8mm Cemented Revision Rotate Platform Knee 2mm Latex Free - [id number] Implanted:Qty: 1 on 09/28/2018 by Jabier Torres MD at [facility] Explanted:Qty: 1 on 04/14/2021 by Jabier Torres MD at [facility] Left: Knee [employer] Inc 04/24/2024 [id number] / / [id number] Procedures Procedure Name Priority Date/Time Associated Diagnosis Comments XR RADIUS ULNA LEFT 2 VIEWS Schedule Routine, Read Routine (OP Routine) 06/05/2025 10:51 AM CDT Chronic pain of both shoulders XR SHOULDER BILATERAL 2+ VIEWS Schedule Routine, Read Routine (OP Routine) 06/05/2025 10:51 AM CDT Chronic pain of both shoulders XR KNEE LEFT 3 VIEWS Schedule Routine, Read Routine (OP Routine) 06/05/2025 9:07 AM CDT 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, subsequent encounter XR FEMUR LEFT 2 OR MORE VIEWS Routine 06/05/2025 9:07 AM CDT Fracture of femur, subtrochanteric, closed, left, with nonunion, subsequent encounter HEPATITIS C ANTIBODY Routine 02/24/2024 10:26 PM CDT COLONOSCOPY Routine 01/12/2018 SCREENING MAMMOGRAM BILATERAL W ABRAN Schedule Routine, Read Routine (OP Routine) 11/24/2017 2:17 PM TUB MENDER Screening breast examination from Last 3 Months or Most Recently Relevant to Health Maintenance Results * XR Shoulder Bilateral 2 or More Views (06/05/2025 10:51 AM CDT) Anatomical Region Laterality Modality Upper Extremities, Shoulder Comp uted Radiography 06/05/2025 12:2 9 PM CDT Impressions 06/05/2025 12:29 PM CDT 1. No acute osseous abnormality of the left forearm 2. Severe right glenohumeral joint osteoarthritis. Superior subluxation of the right humeral head may represent full-thickness right rotator cuff tendon tear. 3. Cement spacer of the proximal left humerus with osseous remodeling along the glenoid articular surface. Electronically signed by: Florecita Campoverde MD Narrative 06/05/2025 12:29 PM CDT EXAMINATION: XR SHOULDER BILATERAL 2+ VIEWS, XR RADIUS ULNA LEFT 2 VIEWS HISTORY: Bilateral shoulder pain FINDINGS: Left forearm: 4 radiographs of the left forearm are submitted for interpretation without comparison. No acute fracture or dislocation is identified. No significant elbow joint effusion. Alignment is normal. A minute distal triceps enthesophyte is present. Shoulders: 4 views of each shoulder are submitted for interpretation with comparison 08/12/2018. On the right, there is no acute fracture or dislocation. Severe right glenohumeral joint osteoarthritis is noted with osseous remodeling along the articular surfaces. The right humeral head is superiorly subluxed with narrowing of the acromiohumeral interval. There has been distal right clavicular excision and likely acromioplasty. On the left, there is a cement spacer in the proximal left humerus. There is osseous remodeling along the glenoid articular surface. Distal clavicular excision is noted. No acute displaced fracture of the left shoulder is identified. Partially visualized neurostimulator leads terminate at the T5-T6 level. Procedure Note Shelly Campoverde MD - 06/05/2025 EXAMINATION: XR SHOULDER BILATERAL 2+ VIEWS, XR RADIUS ULNA LEFT 2 VIEWS HISTORY: Bilateral shoulder pain FINDINGS: Left forearm: 4 radiographs of the left forearm are submitted for interpretation without comparison. No acute fracture or dislocation is identified. No significant elbow joint effusion. Alignment is normal. A minute distal triceps enthesophyte is present. Shoulders: 4 views of each shoulder are submitted for interpretation with comparison 08/12/2018. On the right, there is no acute fracture or dislocation. Severe right glenohumeral joint osteoarthritis is noted with osseous remodeling along the articular surfaces. The right humeral head is superiorly subluxed with narrowing of the acromiohumeral interval. There has been distal right clavicular excision and likely acromioplasty. On the left, there is a cement spacer in the proximal left humerus. There is osseous remodeling along the glenoid articular surface. Distal clavicular excision is noted. No acute displaced fracture of the left shoulder is identified. Partially visualized neurostimulator leads terminate at the T5-T6 level. IMPRESSION: 1. No acute osseous abnormality of the left forearm 2. Severe right glenohumeral joint osteoarthritis. Superior subluxation of the right humeral head may represent full-thickness right rotator cuff tendon tear. 3. Cement spacer of the proximal left humerus with osseous remodeling along the glenoid articular surface. Electronically signed by: Florecita Campoverde MD Huang Chilel MD PhD IMG XR PROCEDURES Fi nal Result * X-ray forearm left 2 views (06/05/2025 10:51 AM CDT) Anatomical Region Laterality Modality Upper Extremities, Forearm Left Compu tamia Radiography 06/05/2025 12:2 9 PM CDT Impressions 06/05/2025 12:29 PM CDT 1. No acute osseous abnormality of the left forearm 2. Severe right glenohumeral joint osteoarthritis. Superior subluxation of the right humeral head may represent full-thickness right rotator cuff tendon tear. 3. Cement spacer of the proximal left humerus with osseous remodeling along the glenoid articular surface. Electronically signed by: Florecita Campoverde MD Narrative 06/05/2025 12:29 PM CDT EXAMINATION: XR SHOULDER BILATERAL 2+ VIEWS, XR RADIUS ULNA LEFT 2 VIEWS HISTORY: Bilateral shoulder pain FINDINGS: Left forearm: 4 radiographs of the left forearm are submitted for interpretation without comparison. No acute fracture or dislocation is identified. No significant elbow joint effusion. Alignment is normal. A minute distal triceps enthesophyte is present. Shoulders: 4 views of each shoulder are submitted for interpretation with comparison 08/12/2018. On the right, there is no acute fracture or dislocation. Severe right glenohumeral joint osteoarthritis is noted with osseous remodeling along the articular surfaces. The right humeral head is superiorly subluxed with narrowing of the acromiohumeral interval. There has been distal right clavicular excision and likely acromioplasty. On the left, there is a cement spacer in the proximal left humerus. There is osseous remodeling along the glenoid articular surface. Distal clavicular excision is noted. No acute displaced fracture of the left shoulder is identified. Partially visualized neurostimulator leads terminate at the T5-T6 level. Procedure Note Shelly Campoverde MD - 06/05/2025 EXAMINATION: XR SHOULDER BILATERAL 2+ VIEWS, XR RADIUS ULNA LEFT 2 VIEWS HISTORY: Bilateral shoulder pain FINDINGS: Left forearm: 4 radiographs of the left forearm are submitted for interpretation without comparison. No acute fracture or dislocation is identified. No significant elbow joint effusion. Alignment is normal. A minute distal triceps enthesophyte is present. Shoulders: 4 views of each shoulder are submitted for interpretation with comparison 08/12/2018. On the right, there is no acute fracture or dislocation. Severe right glenohumeral joint osteoarthritis is noted with osseous remodeling along the articular surfaces. The right humeral head is superiorly subluxed with narrowing of the acromiohumeral interval. There has been distal right clavicular excision and likely acromioplasty. On the left, there is a cement spacer in the proximal left humerus. There is osseous remodeling along the glenoid articular surface. Distal clavicular excision is noted. No acute displaced fracture of the left shoulder is identified. Partially visualized neurostimulator leads terminate at the T5-T6 level. IMPRESSION: 1. No acute osseous abnormality of the left forearm 2. Severe right glenohumeral joint osteoarthritis. Superior subluxation of the right humeral head may represent full-thickness right rotator cuff tendon tear. 3. Cement spacer of the proximal left humerus with osseous remodeling along the glenoid articular surface. Electronically signed by: Florecita Campoverde MD Huang Chilel MD PhD IMG XR PROCEDURES Fi nal Result * XR Femur Left 2 or More Views (06/05/2025 9:07 AM CDT) Anatomical Region Laterality Modality Lower Extremities, Thigh, Femur Left Computed Radiography 06/05/2025 11:4 6 AM CDT Impressions 06/05/2025 10:00 PM CDT Unchanged left femur resection with total endoprosthetic femur reconstruction and hinged left knee arthroplasty in near-anatomic alignment. Dictated by: Millie Sullivan MD The radiology attending physician has personally reviewed this study, and had reviewed and/or edited this written report and agrees with it. Electronically signed by: Florecita Campoverde MD Narrative 06/05/2025 10:00 PM CDT EXAMINATION: XR FEMUR LEFT 2 OR MORE VIEWS, XR KNEE LEFT 3 VIEWS HISTORY: Left hip pain and left total femur replacement FINDINGS: 9 radiographs of the left femur and left knee are submitted. Comparison is made to left femur radiographs dated 03/06/2025. There is unchanged left femur resection with endoprosthetic femur reconstruction and a hinged left knee arthroplasty in near-anatomic alignment. There is unchanged trace lucency along the bone cement interface of the tibial component of the prosthesis. There is no periprosthetic fracture. There is unchanged heterotopic ossification along the medial aspect of the proximal femur prosthesis. There is osseous remodeling of the patella. There is heterotopic ossification at the posterior knee. There is no left knee joint effusion. There is persistent knee soft tissue swelling. Procedure Note Shelly Campoverde MD - 06/05/2025 EXAMINATION: XR FEMUR LEFT 2 OR MORE VIEWS, XR KNEE LEFT 3 VIEWS HISTORY: Left hip pain and left total femur replacement FINDINGS: 9 radiographs of the left femur and left knee are submitted. Comparison is made to left femur radiographs dated 03/06/2025. There is unchanged left femur resection with endoprosthetic femur reconstruction and a hinged left knee arthroplasty in near-anatomic alignment. There is unchanged trace lucency along the bone cement interface of the tibial component of the prosthesis. There is no periprosthetic fracture. There is unchanged heterotopic ossification along the medial aspect of the proximal femur prosthesis. There is osseous remodeling of the patella. There is heterotopic ossification at the posterior knee. There is no left knee joint effusion. There is persistent knee soft tissue swelling. IMPRESSION: Unchanged left femur resection with total endoprosthetic femur reconstruction and hinged left knee arthroplasty in near-anatomic alignment. Dictated by: Millie Sullivan MD The radiology attending physician has personally reviewed this study, and had reviewed and/or edited this written report and agrees with it. Electronically signed by: Florecita Campoverde MD us Huang Chilel MD PhD IMG XR PROCEDURES Fi nal Result * XR Knee Left 3 Views (06/05/2025 9:07 AM CDT) Anatomical Region Laterality Modality Lower Extremities, Knee Left Computed Radiography 06/05/2025 11:4 6 AM CDT Impressions 06/05/2025 10:00 PM CDT Unchanged left femur resection with total endoprosthetic femur reconstruction and hinged left knee arthroplasty in near-anatomic alignment. Dictated by: Millie Sullivan MD The radiology attending physician has personally reviewed this study, and had reviewed and/or edited this written report and agrees with it. Electronically signed by: Florecita Campoverde MD Narrative 06/05/2025 10:00 PM CDT EXAMINATION: XR FEMUR LEFT 2 OR MORE VIEWS, XR KNEE LEFT 3 VIEWS HISTORY: Left hip pain and left total femur replacement FINDINGS: 9 radiographs of the left femur and left knee are submitted. Comparison is made to left femur radiographs dated 03/06/2025. There is unchanged left femur resection with endoprosthetic femur reconstruction and a hinged left knee arthroplasty in near-anatomic alignment. There is unchanged trace lucency along the bone cement interface of the tibial component of the prosthesis. There is no periprosthetic fracture. There is unchanged heterotopic ossification along the medial aspect of the proximal femur prosthesis. There is osseous remodeling of the patella. There is heterotopic ossification at the posterior knee. There is no left knee joint effusion. There is persistent knee soft tissue swelling. Procedure Note Shelly Campoverde MD - 06/05/2025 EXAMINATION: XR FEMUR LEFT 2 OR MORE VIEWS, XR KNEE LEFT 3 VIEWS HISTORY: Left hip pain and left total femur replacement FINDINGS: 9 radiographs of the left femur and left knee are submitted. Comparison is made to left femur radiographs dated 03/06/2025. There is unchanged left femur resection with endoprosthetic femur reconstruction and a hinged left knee arthroplasty in near-anatomic alignment. There is unchanged trace lucency along the bone cement interface of the tibial component of the prosthesis. There is no periprosthetic fracture. There is unchanged heterotopic ossification along the medial aspect of the proximal femur prosthesis. There is osseous remodeling of the patella. There is heterotopic ossification at the posterior knee. There is no left knee joint effusion. There is persistent knee soft tissue swelling. IMPRESSION: Unchanged left femur resection with total endoprosthetic femur reconstruction and hinged left knee arthroplasty in near-anatomic alignment. Dictated by: Millie Sullivan MD The radiology attending physician has personally reviewed this study, and had reviewed and/or edited this written report and agrees with it. Electronically signed by: Florecita Campoverde MD Huang Chilel MD PhD IMG XR PROCEDURES Fi nal Result * Hepatitis C antibody Blood (02/24/2024 10:26 PM CDT) Hep C Ab Nonreactive Nonreactive Comment:Antibodies to HCV no t detected. Does NOT exclude the possibility of recent exposure to HCV. Current interpretive data was last revised on 22 Blood 02/24/2024 10:2 6 PM CDT 02/24/2024 11:31 PM CDT Ashu Merritt MD LAB MICROBIOLOGY - GENERA L ORDERABLES Final Result [facility] Department [place] [address] * Colonoscopy (01/12/2018) Anatomical Region Laterality Modality Other Historical Provider ENDOSCOPY PROCEDURES Aaliyah l Result * Screening Mammogram Bilateral W Abran (11/24/2017 2:17 PM TUB MENDER) Anatomical Region Laterality Modality Breast Bilateral Mammography Addenda Addendum by Galileo Erickson MD on 11/30/2017 7:44 AM TUB MENDER ADDENDUM #1 Comparison is now made to outside studies dating back to 01/27/2012. No interval suspicious mass or calcification has developed to suggest malignancy. Annual follow-up recommended. BI-RADS 1. Electronically signed by: Galileo Erickson M.D. ORIGINAL REPORT - ADDENDUM ABOVE SCREENING MAMMOGRAM BILATERAL W ABRAN HISTORY: Encounter for screening mammogram for malignant neoplasm of breast TECHNIQUE: 2 views of each breast were obtained with bilateral breast tomosynthesis. COMPARISON: None available but release form will be submitted to attempt to acquire prior studies. FINDINGS: The breasts are composed of scattered fibroglandular densities. No suspicious mass or calcification is seen to suggest mammographic evidence of malignancy. Digital technology was employed plus computer aided detection software (R2) was utilized in interpretation of these images. This facility utilizes a reminder system to notify patient's of yearly mammograms. IMPRESSION: 1. NO DEFINITIVE MAMMOGRAPHIC EVIDENCE OF MALIGNANCY. IF PRIOR STUDIES BECOME AVAILABLE AN ADDENDUM WILL BE ISSUED OTHERWISE ANNUAL FOLLOW-UP RECOMMENDED. BI-RADS 1 Electronically signed by: Galileo Erickson M.D. Impressions 11/24/2017 2:35 PM TUB MENDER 1. NO DEFINITIVE MAMMOGRAPHIC EVIDENCE OF MALIGNANCY. IF PRIOR STUDIES BECOME AVAILABLE AN ADDENDUM WILL BE ISSUED OTHERWISE ANNUAL FOLLOW-UP RECOMMENDED. BI-RADS 1 Electronically signed by: Galileo Erickson M.D. Narrative 11/24/2017 2:35 PM TUB MENDER SCREENING MAMMOGRAM BILATERAL W ABRAN HISTORY: Encounter for screening mammogram for malignant neoplasm of breast TECHNIQUE: 2 views of each breast were obtained with bilateral breast tomosynthesis. COMPARISON: None available but release form will be submitted to attempt to acquire prior studies. FINDINGS: The breasts are composed of scattered fibroglandular densities. No suspicious mass or calcification is seen to suggest mammographic evidence of malignancy. Digital technology was employed plus computer aided detection software (R2) was utilized in interpretation of these images. This facility utilizes a reminder system to notify patient's of yearly mammograms. Edwin Arroyo MD IMG MAMMO PROCEDURES Edit ed Result - Final from Last 3 Months or Most Recently Relevant to Health Maintenance Insurance [facility] MEDICARE ADVANTAGE [place] [id number] MEDICARE ADVANTAGE BLUE ACCESS [place] [employer] CLAIMS OFFICE HUMAN CHOICE MEDICARE PPO [facility] MEDICARE Address: [address] [address] [place] [address] [facility] Advance Directives For more information, please contact: [phone] Documents on File Type Date Recorded Patient Tapper Balance Wheel Screw Hole Expl anation ADVANCE DIRECTIVE 12/01/2024 8:35 AM Power of Sheet Metal Lay Out Worker-Medical * Full Code (Latest Code Status on File) Date Activated Date Inactivated Comments 12/16/2024 11:11 AM 12/19/2024 5:27 PM * Full Code Date Activated Date Inactivated Comments 12/01/2024 5:55 PM 12/11/2024 8:33 PM * Full Code Date Activated Date Inactivated Comments 02/23/2024 11:10 PM 03/02/2024 6:56 PM * Full Code Date Activated Date Inactivated Comments 08/27/2021 4:52 PM 08/28/2021 7:42 PM * Full Code Date Activated Date Inactivated Comments 04/14/2021 5:03 PM 04/15/2021 8:08 PM Care Teams Dumper Mold Cleaner Relationship Specialty Start Date End Date Bradley Nuno DO [address] [place] [address] PCP - General Family Medicine 04/04/24 Leah Huertas MD Consulting Physician Gastroenterology 05/21/19 Jabier Torres MD Surgeon Orthopedic Surgery 04/15/21
--- OUTSIDE RECORDS SUMMARY | 2025-08-22 14:36 | XMS_ITS | Encounter Summary ---
Author Organization [facility] Address [address] [place] [address] Care Team Providers Care Entry Level Electrician Name Role Phone Bradley Nuno DO Primary Care Provider [phone] Encounter Details Date Type Department Care Team (Late st Contact Info) Description 03/16/2024 Hospital Orders Only [facility] Anesthesia [address] [place] [address] Marybeth Amaro RN Anesthesia Record Procedure Summary Procedure Name [...] documented as of this encounter Care Teams Entry Level Electrician Relationship Specialty Start Date End Date Bradley Nuno DO [address] [place] [address] PCP - General FAMILY PRACTICE 03/30/24 documented as of this encounter
--- OUTSIDE RECORDS SUMMARY | 2025-08-22 14:37 | XMS_ITS ---
Care Plan - [facility] Created on: August 22, 2025 MAGDALENO GARCIA : 1955 Sex: Female Author Organization [facility] Address [address] [place] [address] Phone Care Team Providers Care Burner Operator Name Role Phone JORGE A LOYA, FABIOLA Unavailable [phone] EMIGDIO LOYA, DENEEN Calvillo Primary Care Provider [phone]
--- OUTSIDE RECORDS SUMMARY | 2025-08-22 14:37 | XMS_ITS | Clinical Summary ---
Author Organization [facility] Address [address] [place] [address] Phone Care Team Providers Care Ophthalmologist Retina Specialist Name Role Phone JORGE A LOYA, FABIOLA Unavailable [phone] DENEEN BEAL MD Primary Care Provider [phone] Reason for Visit and Chief Complaint * PHONE CALL Plan of Treatment No Plan of Treatment Recorded Assessments Includes: Assessments from this encounter No Assessments Recorded Medical Equipment - Implanted Devices Includes: Current Devices No Medical Equipment Recorded Medications Includes: Medications discussed during this encounter and other current Medications Current Medications (continue as prescribed) DULoxetine HCl 60 MG Oral Ca psule Delayed Release Particles 01/05/2022 Provider: BOB BLISS APRN-FPA, IVETT-BC Diagnosis: TAKE ONE CAPSULE BY MOUTH AT BEDTIME Last Documented On 2 2:43PM By BOB TINEO ; [facility] DULoxetine HCl 60 MG Oral Capsule Delayed Release Particles 10/07/2021 Provider: SG WILKES Diagnosis: Postlaminectomy syndrome, not elsewhere classified TAKE ONE CAPSULE BY MOUTH AT BEDTIME Last Documented On 1 8:27AM By SG WILKES ; [facility] Xtampza ER 13.5 MG Oral Caps ule ER 12 Hour Abuse-Deterrent 09/17/2021 Provider: SG PERRY P-ISMAEL Diagnosis: 1 tab every 12 hours by mouth Last Documented On 1 5:51PM By SG WILKES ; [facility] oxyCODONE-Acetaminophen 10-3 25 MG Oral Tablet 09/17/2021 Provider: SG SY Diagnosis: 1 po tid prn Last Documented On 1 5:51PM By [facility] ; [facility] DULoxetine HCl 30 MG Oral Capsule Delayed Release Particles 09/11/2021 Provider: SG WILKES Diagnosis: Postlaminectomy syndrome, not elsewhere classified 1 capsule daily in am Last Documented On 1 3:59PM By SG JACOBSON ; [facility] Pregabalin 150 MG Oral Capsule 09/11/2021 Provider: SG JACOBSON Diagnosis: Other spondylosi s with radiculopathy, lumbar region 1 CAPSULE TWO TIMES A DAY Last Documented On 1 3:59PM By SG JACOBSON ; [facility] Lisinopril 5 MG Oral Tablet 08/21/2021 Provider: Diagnosis: Last Documented On 08/21/2021 2:09PM By Alison SANDERS ; [facility] Diclofenac Sodium 2% External Solution 08/21/2021 Pr ovider: Diagnosis: Last Documented On 08/21/2021 2:14PM By Alison SANDERS ; [facility] Esomeprazole Magnesium 40 MG Oral Capsule Delayed Rele ase 08/21/2021 Provider: Diagnosis: Last Documented On 08/21/2021 2:15PM By Alison SANDERS ; [facility] Ferrous Fumarate 325 (106 Fe) MG Oral Tablet Provider: Diagnosis: Last Documented On 08/21/2021 2:15PM By Alison SANDERS ; [facility] Levothyroxine Sodium 50 MCG Oral Capsule 08/21/2021 Provider: Diagnosis: Last Documented On 08/21/2021 2:16PM By Alison SANDERS ; [facility] Oxybutynin Chloride 5 MG Oral Tablet 08/21/2021 Prov ider: Diagnosis: Last Documented On 08/21/2021 2:16PM By Alison SANDERS ; [facility] Sennosides-Docusate Sodium 8.6-50 MG Oral Capsule 07/26 Provider: Diagnosis: Last Documented On 08/21/2021 2:14PM By Alison SANDERS ; [facility] Polyethylene Glycol 3350 Powder 08/21/2021 Provider: Diagnosis: Last Documented On 08/21/2021 2:14PM By Alison SANDERS ; [facility] Ondansetron HCl 4 MG Oral Tablet 08/21/2021 Provider : Diagnosis: Last Documented On 08/21/2021 2:12PM By Alison SANDERS ; [facility] Docusate Sodium 100 MG Oral Capsule 08/21/2021 Provi ravi: Diagnosis: Last Documented On 08/21/2021 2:12PM By Alison SANDERS ; [facility] SUMAtriptan Succinate 6 MG/0 .5ML Subcutaneous Solution Auto-injector 08/21/2021 Provider: Diagnosis: Last Documented On 08/21/2021 2:11PM By Alison SANDERS ; [facility] Lyrica 100 MG Oral Capsule 08/21/2021 Provider: Rajinder SMITH APN Diagnosis: Other spondylosi s with radiculopathy, lumbar region 1 CAPSULE TWO TIMES A DAY.St art 08/22. Discontinue use of Gabapentin. Last Documented On 08/21/2021 3:34PM By Vicenta Smith APN ; [facility] Lidocaine Patch 4% External 08/21/2021 Provider: Diagnosis: Last Documented On 08/21/2021 2:09PM By Alison SANDERS ; [facility] Fluticasone Propionate 50 MCG/ACT Nasal Suspension 08/21/2021 Provider: Diagnosis: Last Documented On 08/21/2021 2:08PM By Alison SANDERS ; [facility] Cyclobenzaprine HCl 5 MG Oral Tablet 08/21/2021 Prov ider: Diagnosis: Last Documented On 08/21/2021 2:08PM By Alison SANDERS ; [facility] Relistor 12 MG/0.6ML Subcutaneous Solution 08/21/2021 Provider: Diagnosis: Last Documented On 08/21/2021 2:07PM By Alison SANDERS ; [facility] Narcan 4 MG/0.1ML Nasal Liquid 08/21/2021 Provider: Diagnosis: Last Documented On 08/21/2021 2:07PM By Alison SANDERS ; [facility] Medications Administered Includes: Administered Medications from this encounter No Administered Medications Recorded Results Includes: Results discussed during this encounter No Results Recorded For Specified Dates History of Present Illness Includes: History of Present Illness from this encounter No History of Present Illness Recorded Social History No Social History Recorded - Smoking Status Unknown Procedures and Surgical History Surgical History Last Updated No Pacemaker 09/11/2021 Last Documented On 2 4:39PM ; [facility] Surgical / procedural history Dr Torres 09/11/2021 Last Documented On 2 4:39PM ; [facility] Medical History Includes: Medical History addressed during this encounter Description Last Updated Acupuncture 09/11/2021 Last Documented On 2 4:39PM ; [facility] Back brace 09/11/2021 Last Documented On 2 4:39PM ; [facility] health care facility administrator 09/11/2021 Last Documented On 2 4:39PM ; [facility] CT/MRI Legs n chestt. mauro 09/11/2021 Last Documented On 2 4:39PM ; [facility] Currently wearing eyeglasses 09/11/2021 Last Documented On 2 4:39PM ; [facility] Deep muscle stimulation 09/11/2021 Last Documented On 2 4:39PM ; [facility] Injection/Nerve blocks 09/11/2021 Last Documented On 2 4:39PM ; [facility] No Pain Pump 09/11/2021 Last Documented On 2 4:39PM ; [facility] Pain Clinic 09/11/2021 Last Documented On 2 4:39PM ; [facility] Pain Psychologist/CBT 09/11/2021 Last Documented On 2 4:39PM ; [facility] Physical therapy 09/11/2021 Last Documented On 2 4:39PM ; [facility] Please list all surgeries: Knees Mauro 1 11/11/2020 Last Documented On 2 4:39PM ; [facility] Spinal cord stimulator 09/11/2021 Last Documented On 2 4:39PM ; [facility] Surgery 09/11/2021 Last Documented On 2 4:39PM ; [facility] Treatment with TENS unit 09/11/2021 Last Documented On 2 4:39PM ; [facility] Uses a cane for support 09/11/2021 Last Documented On 2 4:39PM ; [facility] Uses a Knee Brace 09/11/2021 Last Documented On 2 4:39PM ; [facility] X-rays legs mauro 09/11/2021 Last Documented On 2 4:39PM ; [facility] Family History Includes: Family History addressed during this encounter Description Last Updated Fraternal history of Arthritis 1 Last Documented On 2 4:39PM ; [facility] Maternal history of Arthritis 09/11/2021 Last Documented On 2 4:39PM ; [facility] Maternal history of family history of is chemic heart disease 09/11/2021 Last Documented On 2 4:39PM ; [facility] Maternal history of reported family hist ory of seizures 09/11/2021 Last Documented On 2 4:39PM ; [facility] Maternal history of stroke/paralysis Last Documented On 2 4:39PM ; [facility] Paternal history of Arthritis 09/11/2021 Last Documented On 2 4:39PM ; [facility] Paternal history of family history of is chemic heart disease 09/11/2021 Last Documented On 2 4:39PM ; [facility] Sororal history of Arthritis 09/11/2021 Last Documented On 2 4:39PM ; [facility] Review of Systems Includes: Review of Systems from this encounter No Review of Systems Recorded Mental Status Includes: Mental Status from this encounter No Mental Status Recorded Functional Status Includes: Functional Status from this encounter No Functional Status Recorded Physical Exam Includes: Physical Exam from this encounter No Physical Exam Recorded Allergies Includes: Active Allergies No Known Allergies Encounters Encounter Provider Location Date Check-In Time Check-Out Time Diagnosis * PHONE CALL VICENTA SMITH APN 11/19/2021 4:39PM 11:59PM Insurance Includes: Active Insurance Policies Plan Name Member ID Group # Subscriber Relationship Effect sarah Dates 1 - [employer] [id number] MAGDALENO wong Clinical Notes Includes: Clinical Notes from this encounter No Clinical Notes Recorded
--- OUTSIDE RECORDS SUMMARY | 2025-08-22 14:37 | XMS_ITS | Clinical Summary ---
Author Organization [facility] Address [address] [place] [address] Care Team Providers Care Stevedore Dock Name Role Phone JbBradley hernandez Primary Care Provider [phone] Allergies Active Allergy Reactions Criticality Noted Date Comments Penicillins Anaphylaxis High 04/05/2024 Sulfa Antibiotics Diarrhea 04/05/2024 Sulfamethoxazole-Trimethoprim Anaphylaxis High 11/23 Medications dicyclomine (BENTYL) 20 MG tablet Take 1 tablet (20 mg total) by mouth see administration instructions. 4 Active DULoxetine (CYMBALTA) 30 MG capsule Take 2 capsules (60 mg total) by mouth daily. 4 Active gabapentin (NEURONTIN) 800 MG tablet Take 1 tablet (800 mg total) by mouth 3 (three) times daily. 4 Active oxybutynin XL (DITROPAN-XL) 10 MG 24 hr tablet Take 1 tablet (10 mg total) by mouth daily. 4 Active QUEtiapine (SEROQUEL) 200 MG tablet Take 1 tablet (200 mg total) by mouth nightly at bedtime. at bedtime. 4 Active meloxicam (MOBIC) 15 MG tablet Take 1 tablet (15 mg total) by mouth daily. 4 Active levothyroxine (SYNTHROID) 50 MCG tablet Take 1 tablet (50 mcg total) by mouth daily. 4 Active HYDROcodone-ac etaminophen (NORCO) 7.5-325 MG tablet Take 1 tablet by mouth every 8 (eight) hours as needed for Pain. 4 Active esomeprazole (NEXIUM) 40 MG capsule Take 1 capsule (40 mg total) by mouth every morning before breakfast. 4 Active acetaminophen (TYLENOL) 325 MG tablet Take 2 tablets (650 mg total) by mouth every 8 (eight) hours as needed for Pain. Active SUMAtriptan (IMITREX) 50 MG tablet Take 1 tablet (50 mg total) by mouth 2 (two) times daily as needed for Migraine. Max of 4 tablets (200 mg) in 24 hours. Active simethicone (MYLICON) 80 MG chewable tablet Chew 1 tablet (80 mg total) by mouth 2 (two) times daily as needed for Flatulence. Active polyethylene glycol (GLYCOLAX) packet Take 240 mLs (17 g total) by mouth daily. Dissolve powder in 240 mL water Active aspirin EC (ECOTRIN) 81 MG tablet Take 1 tablet (81 mg total) by mouth daily. Active meclizine (ANTIVERT) 12.5 MG tablet Take 1 tablet (12.5 mg total) by mouth 3 (three) times daily as needed for Dizziness or Nausea. Active fluticasone propionate (FLONASE) 50 MCG/ACT nasal spray 2 sprays by Nasal route daily. Active VALIUM 5 MG/5ML solution Take 5 mLs (5 mg total) by mouth every 6 (six) hours. 4 Active Methylnaltrexo ne [place] 150 MG Tab Take 3 tablets by mouth nightly. Active oxyCODONE immediate release (ROXICODONE) 5 MG immediate release tablet Take 1 tablet (5 mg total) by mouth every 6 (six) hours as needed for Pain. 4 Active lactulose (KRISTALOSE) 10 g packet Take 1 packet (10 g total) by mouth see administration instructions. Active cyclobenzaprin e (FLEXERIL) 10 MG tablet Take 1 tablet (10 mg total) by mouth 3 (three) times daily. 4 Active MORPHINE SULFATE OR Take 1 Dose by mouth see administration instructions. Active linaCLOtide (LINZESS) 145 MCG capsule Take 1 capsule (145 mcg total) by mouth every morning before breakfast. Active Active Problems No known active problems Family History Medical History Relation Comments Heart Disease Father Relation Status Comments Father Social History Tobacco Use Types Packs/Day Years Used Date Smoking Tobacco: Never Smokeless Tobacco: Never Tobacco Cessation:Counseling Given: No Comments Unknown Sex and Gender Information Value Date Recorded Sex Assigned at Not on file Legal Sex Female 10:56 PM CDT Gender Identity Not on file Sexual Orientation Not on file Last Filed Vital Signs Vital Sign Reading Time Taken Comments Blood Pressure 129/64 06/09/2024 11:15 AM CDT Pulse 56 06/09/2024 11:15 AM CDT Temperature 36.2 C (97.2 F) 06/09/2024 9:40 AM CDT Respiratory Rate 17 06/09/2024 11:15 AM CDT Oxygen Saturation 100% 06/09/2024 11:15 AM CDT Inhaled Oxygen Concentration - - Weight 52.2 kg (115 lb 1.3 oz) 06/09/2024 7:34 A M CDT Height 154.9 cm (5' 0.98) 06/09/2024 7:34 AM CD T Body Mass Index 21.76 06/09/2024 7:34 AM CDT Plan of Treatment Health Maintenance Due Date Last Done Comments Colorectal Cancer Screening Colonoscopy (10 Years) 1954 Hepatitis C 1972 Zoster Vaccines (1 of 2) 2004 Mammogram Screening 11/24/2019 11/24/2017, 7 Annual Medicare Wellness Visit 2019 Dexa Scan (General) 2019 COVID-19 Vaccine ( - 2024- season) 2025 Influenza Adult (#1) 2025 12/19/2024, 08/07/2022, 07/25/2020, Additional history exists RSV Immunization or 60+ Years (1 - 1-dose 75+ series) 2029 DTaP, Tdap and Td Vaccines (3 - Td or Tdap) 07/07/2034 07/07/2024, 10/25/2017 Pneumococcal Vaccine: 50+ Years Completed 01/01/2021, 01/05/2017, 07/21/2013 Hepatitis A Vaccines Aged Out No long er eligible based on patient's age to complete this topic Meningococcal B Vaccine Aged Out No l onger eligible based on patient's age to complete this topic Meningococcal Vaccine Aged Out No karina gregg eligible based on patient's age to complete this topic RSV Immunizations Under 20 Months Aged Out No longer eligible based on patient's age to complete this topic Additional Health Concerns Infection Onset Date Last Indicated MRSA 09/11/2017 09/11/2017 Insurance [facility]IC[facility] Advance Directives * Full Code (Latest Code Status on File) Date Activated Date Inactivated Comments 06/09/2024 9:26 AM 06/09/2024 2:14 PM Care Teams Stevedore Dock Relationship Specialty Start Date End Date Bradley Nuno DO [address] [place] [address] PCP - General FAMILY PRACTICE 03/30/24
--- OUTSIDE RECORDS SUMMARY | 2025-08-22 14:37 | XMS_ITS | Encounter Summary ---
Author Organization [facility] Address [address] [place] [address] Care Team Providers Care Funds Transfer Clerk Name Role Phone Bradley Nuno DO Primary Care Provider Encounter Details Date Type Department Care Team (Late st Contact Info) Description 06/07/2024 Hospital Orders Only [facility] Anesthesia [address] [place] [address] Apurva Shrestha RN Anesthesia Record Procedure Summary Procedure Name Responsible Anesthesiologist Anesthesia Start Time Anesthesia Stop Time XA NV DIAG CEREBRAL EVANGELINA Jabier Landis II, MD 06/09/24 0806 06/09/24 0938 Events Date Time Event Comment 06/09/2024 0645 0645 AN Anesthesia Prepped 0806 An Start Patient ID and consent checked and patient reassessed. 0806 An Start Data 0811 Preoxygenation 0813 An Induction The patient was reevaluated immediately before moderate or deep sedation use and before anesthesia induction. 0816 An Intubation 0830 Anesthesia Ready 0911 Quick Note Manual pressure applied to right groin. 0925 An Extubation 0926 Face Mask Applied 0934 an stop data 0938 Post Anesthetic Care Handoff I completed my handoff to the receiving nurse during which we: 1. Identified the patient 2. Identified the responsible provider 3. Reviewed the pertinent medical history 4. Discussed the surgical course 5. Reviewed intra-op anesthesia management and issues during anesthesia 6. Set expectations for post-procedure period 7. Allowed opportunity for questions and acknowledgement of understanding. 0938 An Stop Meds * Agents No agents on file. * Blood No blood administrations on file. Lines, Drains, and Airways Type Details Placement Removal Peripheral IV Placement Date: 05/25 04/17; Placement Time: 07; Placed Outside of This Facility?: No; Size: 18 G; Orientation: Right; Location: Antecubital; Site Prep: Alcohol; Local Anesthetic: None; Inserted By: meliton alvarez; Insertion attempts: 1; Ultrasound-guided Placement?: No; Patient Tolerance: Tolerated well; Removal Date: 06/09/24; Removal Time: 1137; Removal Reason: Patient Discharged 06/09/24737 by Geovanna Smith RN 06/09/24 113 by Mago Grossman RN ETT Placement Date: 05/25 04/17; Placement Time: 08; Mask Ventilate: Prior to intubation, Easy (OA); Size (mm) : 6; Endotracheal: Oral, Stylet used; Blade Type: MAC 3; Placement Method: Direct Laryngoscopy (blade type in comment); View Grade: 1; Viewable Anatomy: Epiglottis, Arytenoid, Vocal cords; Insertion Attempts: 1; Placement Verified By: Auscultation, Chest Rise, Capnography; Placed By: SKYE; Extubation Assessment: Alert, Tolerated well, Patient spontaneously breathing, Lifts et holds head > 5 seconds, Deep breathes w/equal chest movements, Atraumatic; Removal Date: 06/09/24; Removal Time: 924; Removal Person: SKYE; Removal Reason: End of Case 06/09/24 08 by Lorna Figueredo CRNA 06/09/24 09 by Lorna Figueredo CRNA Arterial Line Placement Date: 05/25 04/17; Placement Time: 824 (created via procedure documentation); Size: 22; Orientation: Left; Location: Radial; Site Prep: Chlorhexidine; Insertion Attempts: 1; Patient Tolerance: Tolerated well; Removal Date: 06/09/24; Removal Time: 1137; Removal Reason: Patient Discharged 06/09/24824 by Lorna Figueredo CRNA 06/09/241137 by Mago Grossman RN Peripheral IV Placement Date: 05/25 04/17; Placement Time: 08; Placed Outside of This Facility?: No; Size: 18 G; Orientation: Right; Location: Hand; Site Prep: Chlorhexidine; Inserted By: Rachel guan RN; Insertion attempts: 1; Ultrasound-guided Placement?: No; Patient Tolerance: Tolerated well; Removal Date: 06/09/24; Removal Time: 1138; Removal Reason: Patient Discharged 06/09/24 0828 by Lorna Figueredo CRNA 06/09/24 1138 by Mago Grossman RN documented in this encounter Social History Tobacco Use Types Packs/Day Years Used Date Smoking Tobacco: Never Smokeless Tobacco: Never Comments Unknown Sex and Gender Information Value Date Recorded Sex Assigned at Not on file Legal Sex Female 10:56 PM CDT Gender Identity Not on file Sexual Orientation Not on file documented as of this encounter Functional Status * Calculated C-SSRS Risk Score (Lifetime/Recent) Answer Date of Assessment Author Status No Risk Indicated 06/09/2024 7:01 AM CDT Jareth Smith RN Active * [place] Suicide Severity Rating Scale (Screener/Recent Self-Report) Question Answer Date of Assessment Author Status 1. Wish to be (Past 1 Month) No 06/09/2024 7:01 AM SAMANTAT Geovanna Smith RN Active 2. Non-Specific Active Suicidal Thoughts (Past 1 Month) No 06/09/2024 7:01 AM SAMANTAT Geovanna Smith RN Active 6. Suicidal Behavior (Lifetime) No 06/09/2024 7:01 AM SAMANTAT Geovanna Smith RN Active documented as of this encounter Plan of Treatment Not on file documented as of this encounter Visit Diagnoses Not on filedocumented in this encounter Additional Health Concerns Infection Onset Date Last Indicated Resolved Time MRSA 09/11/2017 09/11/2017 documented as of this encounter Care Teams Funds Transfer Clerk Relationship Specialty Start Date End Date Bradley Nuno DO [address] [place] [address] PCP - General FAMILY PRACTICE 03/30/24 documented as of this encounter
--- OUTSIDE RECORDS SUMMARY | 2025-08-22 14:37 | XMS_ITS | Clinical Summary ---
Author Organization [facility] Address [address] [place] [address] Phone Care Team Providers Care Waterproof Bag Sewer Name Role Phone JORGE A LOYA, FABIOLA Unavailable [phone] EMIGDIO LOYA, DENEEN Calvillo Primary Care Provider [phone] Reason for Visit and Chief Complaint RX ISSUE/REFILL Plan of Treatment This is being addressed by IVETT Ewdard. She was scheduled to see her on 11/06/21 - Last Documented On 11/18/2021 8:35AM ; [facility] Assessments Includes: Assessments from this encounter Findings - Sacroiliitis [M46.1 - Sacroiliitis, not elsewhere classified] - Last Documented On 11/18/2021 8:35AM ; [facility] - Trochanteric bursitis [M70.61 - Trochanteric bursitis, right hip] - Last Documented On 11/18/2021 8:35AM ; [facility] - Left trochanteric bursitis [M70.62 - Trochanteric bursitis, left hip] - Last Documented On 11/18/2021 8:35AM ; [facility] - Postlaminectomy syndrome [M96.1 - Postlaminectomy syndrome, not elsewhere classified] - Last Documented On 11/18/2021 8:35AM ; [facility] - Lumbar spondylosis with radiculopathy [M47.26 - Other spondylosis with radiculopathy, lumbar region] - Last Documented On 11/18/2021 8:35AM ; [facility] - Neuralgia [M79.2 - Neuralgia and neuritis, unspecified] - Last Documented On 11/18/2021 8:35AM ; [facility] - Myalgia [M79.18 - Myalgia, other site] - Last Documented On 11/18/2021 8:35AM ; [facility] - Opioid dependence with continuous use [F11.20 - Opioid dependence, uncomplicated] - Last Documented On 11/18/2021 8:35AM ; [facility] - Chronic pain syndrome [G89.4 - Chronic pain syndrome] - Last Documented On 11/18/2021 8:35AM ; [facility] - 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 [Z79.891 - shelter (current) use of opiate analgesic] - Last Documented On 11/18/2021 8:35AM ; [facility] Medical Equipment - Implanted Devices Includes: Current Devices No Medical Equipment Recorded Medications Includes: Medications discussed during this encounter and other current Medications Current Medications (continue as prescribed) DULoxetine HCl 60 MG Oral Ca psule Delayed Release Particles 01/05/2022 Provider: IVETT BERNARDO-BC Diagnosis: TAKE ONE CAPSULE BY MOUTH AT BEDTIME Last Documented On 2 2:43PM By BOB TINEO ; [facility] DULoxetine HCl 60 MG Oral Capsule Delayed Release Particles 10/07/2021 Provider: SG WILKES Diagnosis: Postlaminectomy syndrome, not elsewhere classified TAKE ONE CAPSULE BY MOUTH AT BEDTIME Last Documented On 1 8:27AM By SG WILKES ; [facility] Xtampza ER 13.5 MG Oral Caps ule ER 12 Hour Abuse-Deterrent 09/17/2021 Provider: SG MORRIS Diagnosis: 1 tab every 12 hours by mouth Last Documented On 1 5:51PM By SG WILKES ; [facility] oxyCODONE-Acetaminophen 10-3 25 MG Oral Tablet 09/17/2021 Provider: SG SY Diagnosis: 1 po tid prn Last Documented On 1 5:51PM By SG WILKES ; [facility] DULoxetine HCl 30 MG Oral Capsule Delayed Release Particles 09/11/2021 Provider: SG WILKES Diagnosis: Postlaminectomy syndrome, not elsewhere classified 1 capsule daily in am Last Documented On 3:59PM [facility] Pregabalin 150 MG Oral Capsule 09/11/2021 Provider: SG JACOBSON Diagnosis: Other spondylosi s with radiculopathy, lumbar region 1 CAPSULE TWO TIMES A DAY Last Documented On 3:59PM [facility] ; [facility] Lisinopril 5 MG Oral Tablet 08/21/2021 Provider: Diagnosis: Last Documented On 08/21/2021 2:09PM By Alison SANDERS ; [facility] Diclofenac Sodium 2% External Solution 08/21/2021 Pr ovider: Diagnosis: Last Documented On 08/21/2021 2:14PM By Alison SANDERS ; [facility] Esomeprazole Magnesium 40 MG Oral Capsule Delayed Rele ase 08/21/2021 Provider: Diagnosis: Last Documented On 08/21/2021 2:15PM By Alison SANDERS ; [facility] Ferrous Fumarate 325 (106 Fe) MG Oral Tablet Provider: Diagnosis: Last Documented On 08/21/2021 2:15PM By Alison SANDERS ; [facility] Levothyroxine Sodium 50 MCG Oral Capsule 08/21/2021 Provider: Diagnosis: Last Documented On 08/21/2021 2:16PM By Alison SANDERS ; [facility] Oxybutynin Chloride 5 MG Oral Tablet 08/21/2021 Prov ider: Diagnosis: Last Documented On 08/21/2021 2:16PM By Alison SANDERS ; [facility] Sennosides-Docusate Sodium 8.6-50 MG Oral Capsule 07/26 Provider: Diagnosis: Last Documented On 08/21/2021 2:14PM By Alison SANDERS ; [facility] Polyethylene Glycol 3350 Powder 08/21/2021 Provider: Diagnosis: Last Documented On 08/21/2021 2:14PM By Alison SANDERS ; [facility] Ondansetron HCl 4 MG Oral Tablet 08/21/2021 Provider : Diagnosis: Last Documented On 08/21/2021 2:12PM By Alison SANDERS ; [facility] Docusate Sodium 100 MG Oral Capsule 08/21/2021 Provi ravi: Diagnosis: Last Documented On 08/21/2021 2:12PM By Alison SANDERS ; [facility] SUMAtriptan Succinate 6 MG/0 .5ML Subcutaneous Solution Auto-injector 08/21/2021 Provider: Diagnosis: Last Documented On 08/21/2021 2:11PM By Alison SANDERS ; [facility] Lyrica 100 MG Oral Capsule 08/21/2021 Provider: Rajinder SMITH APN Diagnosis: Other spondylosi s with radiculopathy, lumbar region 1 CAPSULE TWO TIMES A DAY.St art 08/22. Discontinue use of Gabapentin. Last Documented On 08/21/2021 3:34PM By Vicenta Smith APN ; [facility] HM Lidocaine Patch 4% External 08/21/2021 Provider: Diagnosis: Last Documented On 08/21/2021 2:09PM By Alison SANDERS ; [facility] Fluticasone Propionate 50 MCG/ACT Nasal Suspension 08/21/2021 Provider: Diagnosis: Last Documented On 08/21/2021 2:08PM By Alison SANDERS ; [facility] Cyclobenzaprine HCl 5 MG Oral Tablet 08/21/2021 Prov ider: Diagnosis: Last Documented On 08/21/2021 2:08PM By Alison SANDERS ; [facility] Relistor 12 MG/0.6ML Subcutaneous Solution 08/21/2021 Provider: Diagnosis: Last Documented On 08/21/2021 2:07PM By Alison SANDERS ; [facility] Narcan 4 MG/0.1ML Nasal Liquid 08/21/2021 Provider: Diagnosis: Last Documented On 08/21/2021 2:07PM By Alison SANDERS ; [facility] Medications Administered Includes: Administered Medications from [...] No Pacemaker 09/11/2021 Last Documented On 2 4:59PM ; [facility] Surgical / procedural history Dr Torres 09/11/2021 Last Documented On 2 4:59PM ; [facility] Medical History Includes: Medical History addressed during this encounter Description Last Updated Acupuncture 09/11/2021 Last Documented On 2 4:59PM ; [facility] Back brace 09/11/2021 Last Documented On 2 4:59PM ; [facility] 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 mauro 09/11/2021 Last Documented On 2 4:59PM ; [facility] Currently wearing eyeglasses 09/11/2021 Last Documented On 2 4:59PM ; [facility] Deep muscle stimulation 09/11/2021 Last Documented On 2 4:59PM ; [facility] Injection/Nerve blocks 09/11/2021 Last Documented On 2 4:59PM ; [facility] No Pain Pump 09/11/2021 Last Documented On 2 4:59PM ; [facility] Pain Clinic 09/11/2021 Last Documented On 2 4:59PM ; [facility] Pain Psychologist/CBT 09/11/2021 Last Documented On 2 4:59PM ; [facility] Physical therapy 09/11/2021 Last Documented On 2 4:59PM ; [facility] Please list all surgeries: Knees Mauro 1 11/11/2020 Last Documented On 2 4:59PM ; [facility] Spinal cord stimulator 09/11/2021 Last Documented On 2 4:59PM ; [facility] Surgery 09/11/2021 Last Documented On 2 4:59PM ; [facility] Treatment with TENS unit 09/11/2021 Last Documented On 2 4:59PM ; [facility] Uses a cane for support 09/11/2021 Last Documented On 2 4:59PM ; [facility] Uses a Knee Brace 09/11/2021 Last Documented On 2 4:59PM ; [facility] X-rays legs mauro 09/11/2021 Last Documented On 2 4:59PM ; [facility] Family History Includes: Family History addressed during this encounter Description Last Updated Fraternal history of Arthritis Last Documented On 2 4:59PM ; [facility] Maternal history of Arthritis 09/11/2021 Last Documented On 2 4:59PM ; [facility] Maternal history of family history of is chemic heart disease 09/11/2021 Last Documented On 2 4:59PM ; [facility] Maternal history of reported family hist ory of seizures 09/11/2021 Last Documented On 2 4:59PM ; [facility] Maternal history of stroke/paralysis Last Documented On 2 4:59PM ; [facility] Paternal history of Arthritis 09/11/2021 Last Documented On 2 4:59PM ; [facility] Paternal history of family history of is chemic heart disease 09/11/2021 Last Documented On 2 4:59PM ; [facility] Sororal history of Arthritis 09/11/2021 Last Documented On 2 4:59PM ; [facility] Review of Systems Includes: Review of Systems [...] Location Date Check-In Time Check-Out Time Diagnosis RX ISSUE/REFILL SG ZAPATA-ISMAEL 11/07/19 22 4:59PM 11:59PM Neuralgia,Bursiti s Trochanteric,Legal File Clerk kaye Pain Syndrome,Sacroili itis,Postlaminect luh Syndrome,Opioid Dependence Continuous,Spondy losis with Radiculopathy Lumbar Region,Bursitis Trochanteric Left,Internal 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
--- OUTSIDE RECORDS SUMMARY | 2025-08-22 14:37 | XMS_ITS | Encounter Summary ---
Author Organization [facility] Healthcare Address [address] [place] [address] Care Team Providers Care Cable Installer Repairer Name Role Phone Jackie Martinez DO Primary Care Provider [phone] Leah Huertas MD Unavailable [phone] Jabier Torres MD Unavailable [phone] Tia Gibson MA Unavailable [phone] Tarik Osborn MD Primary Care Provider Jackie Martinez DO Primary Care Provider [phone] Caitlin Ritchie NP Primary Care Provider [phone] Bradley Nuno DO Primary Care Provider Corine Woody RN Unavailable [phone] Reason for Visit * Reason Onset Date Comments Scheduling Appointments 02/04/2021 appt rem erwin; no answer Encounter Details Date Type Department Care Team (Late st Contact Info) Description 02/04/2021 Telephone [facility] [address] [place] [address] Edyta Victor RT Scheduling Appointments (appt reminder; no answer) Social History Tobacco Use Types Packs/Day Years Used Date Smoking Tobacco: Never Smokeless Tobacco: Never Alcohol Use Standard Drinks/Week Comments Yes 0 (1 standard drink = 0.6 oz pur e alcohol) occasional PHQ-2 Answer Date Recorded PHQ-2 Total Score (If total score is 3 or more points, staff should administer the PHQ-9) 1 01/01/2021 Comments No Sex and Gender Information Value Date Recorded Sex Assigned at Not on file Legal Sex Female 12:45 AM CREATIVE TECHNOLOGIST Gender Identity Not on file Sexual Orientation Not on file documented as of this encounter Plan of Treatment Not on file documented as of this encounter Visit Diagnoses Not on filedocumented in this encounter Additional Health Concerns Infection Onset Date Last Indicated Resolved Time COVID: Suspected 05/31/2024 05/31/2024 05/31/2024 3:50 PM CDT COVID: Suspected 12/14/2024 12/14/2024 12/14/2024 10:00 PM CREATIVE TECHNOLOGIST COVID19 Comment:Airborne + Contact precautions. Gown, Gloves, N95, eye protection or goggles. Precautions 12/24/24. Contact Customs Director if patient worsens. - Len HART, RN 12/20/24 12/14/2024 12/14/2024 12/24/2024 3:[address] COVID: Recovered Comment:Added based on recent COVID infection. 12/24/2024 12/25/2024 03/24/2025 7:27 PM C DT documented as of this encounter Care Teams Cable Installer Repairer Relationship Specialty Start Date End Date Jackie Martinez DO PCP - General Family Medicine 11/25/18 08/11/21 Tarik Osborn MD [address] [place] [address] [address] [place] [address] PCP - General 08/12/21 01/06/22 Jackie Martinez DO PCP - General 01/07/22 05/23/23 Caitlin Ritchie NP [address] [place] [address] [address] [place] [address] PCP - General Family Medicine 05/24/23 04/03/24 Bradley Nuno DO [address] [place] [address] PCP - General Family Medicine 04/04/24 Leah Huertas MD Consulting Physician Gastroenterology 05/21/19 Jabier Torres MD Surgeon Orthopedic Surgery 04/15/21 Tia Gibson MA [address] [place] [address] [address] [place] [address] ACO Care Director Engineering 04/18/21 04/28/21 Corine Woody RN [address] [facility] [address] [place], [place] [id number] SHOP Outpatient Nascar Driver 12/12/24 01/03/25 documented as of this encounter
--- OUTSIDE RECORDS SUMMARY | 2025-08-22 14:38 | XMS_ITS ---
Author Organization [facility] Address [address] [place] [address] Phone Care Team Providers Care [employer] Team Member Name Role Phone JORGE A LOYA, FABIOLA Unavailable [phone] EMIGDIO LOYA, DENEEN Calvillo Primary Care Provider [phone] Plan of Treatment Referrals To Diagnosis Pain Management [facility] - [address] [place] [address] - Postlaminectomy syndrome, not elsewhere classified Note: consent for spinal cor d stimulator replacement with a non-rechargeable device. PIV2 g Ancef OCTORNKAPlease notify [employer] of the appointment. Please remind them to bring a NON-rechargeable device. Last Documented On 2 11:52AM ; [facility] Education and Decision Aids were provided during visit for: Pill Count: Patient did not bring pain medication to appointment for pill count, per policy. Advised in order to continue to safely prescribe opioids, medication must be brought to each appointment Last Documented On 2 9:10AM ; [facility] Pill Count: Patient did not bring pain medication to appointment for pill count, per policy. Advised in order to continue to safely prescribe opioids, medication must be brought to each appointment Last Documented On 1 2:54PM ; [facility] Pill Count: Patient did not bring pain medication to appointment for pill count, per policy. Advised in order to continue to safely prescribe opioids, medication must be brought to each appointment Last Documented On 1 2:39PM ; [facility] Assessments Includes: Assessments for all patient encounters Findings Encounter Date Chronic pain syndrome RX ISSUE/REFILL with MADI ZAPATA-ISMAEL 11/07/2021 Last Documented On 2 8:35AM ; [facility] Left trochanteric bursitis RX ISSUE/REFILL with SG L [facility]RA [facility] 11/07/2021 Last Documented On 2 8:35AM ; [facility] 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 RX ISS UE/REFILL with SG L [facility] 11/07/2021 Last Documented On 2 8:35AM ; [facility] Lumbar spondylosis with radiculopathy RX ISSUE/REFILL with SG L [facility] 11/07/2021 Last Documented On 2 8:35AM ; [facility] Myalgia RX ISSUE/REFILL with SG L BL EVINS [facility] 11/07/2021 Last Documented On 2 8:35AM ; [facility] Neuralgia RX ISSUE/REFILL with SG L BL EVINS [facility] 11/07/2021 Last Documented On 2 8:35AM ; [facility] Opioid dependence with andrea nuous use RX ISSUE/REFILL with SG L [facility] 11/07/2021 Last Documented On 2 8:35AM ; [facility] Postlaminectomy syndrome RX ISSUE/REFILL with TA MMIE L [facility] 11/07/2021 Last Documented On 2 8:35AM ; [facility] Sacroiliitis RX ISSUE/REFILL with SG L BL EVINS [facility] 11/07/2021 Last Documented On 2 8:35AM ; [facility] Trochanteric bursitis RX ISSUE/REFILL with MADI E L [facility] 11/07/2021 Last Documented On 2 8:35AM ; [facility] Chronic pain syndrome TELEHEALTH with JUSTICE Brand WELFARE MANAGER 11/06/2021 Last Documented On 2 7:24PM ; [facility] Left trochanteric bursitis TELEHEALTH with BERONICA SMITH WELFARE MANAGER 11/06/2021 Last Documented On 2 7:24PM ; [facility] 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 TELEHEALTH wit JUSTICE SMITH WELFARE MANAGER 11/06/2021 Last Documented On 2 7:24PM ; [facility] Lumbar spondylosis with radiculopathy TELEHEALTH with JUSTICE HEFT WELFARE MANAGER 11/06/2021 Last Documented On 2 7:24PM ; [facility] Myalgia TELEHEALTH with JUSTICE HEFT WELFARE MANAGER 11/06/2021 Last Documented On 2 7:24PM ; [facility] Neuralgia TELEHEALTH with JUSTICE HEFT WELFARE MANAGER 11/06/2021 Last Documented On 2 7:24PM ; [facility] Opioid dependence with continuous use TELEHEALTH with JUSTICE HEFT WELFARE MANAGER 11/06/2021 Last Documented On 2 7:24PM ; [facility] Postlaminectomy syndrome TELEHEALTH with JUSTICE HEFT WELFARE MANAGER 11/06/2021 Last Documented On 2 7:24PM ; [facility] Sacroiliitis TELEHEALTH with JUSTICE HEFT WELFARE MANAGER 11/06/2021 Last Documented On 2 7:24PM ; [facility] Trochanteric bursitis TELEHEALTH with JUSTICE HEF T WELFARE MANAGER 11/06/2021 Last Documented On 2 7:24PM ; [facility] Chronic pain syndrome PAIN MANAGEMENT FO LLOW UP with SG VALLEJOS ANP-BC 09/11/2021 Last Documented On 1 11:12PM ; [facility] Left trochanteric bursitis PAIN MANAGEME NT FOLLOW UP with SGULYSSES VALLEJOS ANP-BC 09/11/2021 Last Documented On 1 11:12PM ; [facility] 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 PAIN M ANAGEMENT FOLLOW UP with SG Nayely VALLEJOS ANP-BC 09/11/2021 Last Documented On 1 11:12PM ; [facility] Lumbar spondylosis with radiculopathy PA IN MANAGEMENT FOLLOW UP with SG Nayely VALLEJOS ANP-BC 09/11/2021 Last Documented On 1 11:12PM ; [facility] Myalgia PAIN MANAGEMENT FOLLOW UP with Cathie VALLEJOS ANP-BC 09/11/2021 Last Documented On 1 11:12PM ; [facility] Neuralgia PAIN MANAGEMENT FOLLOW UP with T TAMIKO Nayely SAMRA ANP-BC 09/11/2021 Last Documented On 1 11:12PM ; [facility] Opioid dependence with continuous use PA IN MANAGEMENT FOLLOW UP with SG Nayely SAMRA ANP-BC 09/11/2021 Last Documented On 1 11:12PM ; [facility] Postlaminectomy syndrome PAIN MANAGEMENT FOLLOW UP with SG Nayely SAMRA ANP-BC 09/11/2021 Last Documented On 1 11:12PM ; [facility] Sacroiliitis PAIN MANAGEMENT FOLLOW UP with T TAMIKO Nayely SAMRA ANP-BC 09/11/2021 Last Documented On 1 11:12PM ; [facility] Trochanteric bursitis PAIN MANAGEMENT FO LLOW UP with SG Nayely SAMRA ANP-BC 09/11/2021 Last Documented On 1 11:12PM ; [facility] Chronic pain syndrome PAIN MANAGEMENT NEW CONSUL T with JUSTICE SMITH WELFARE MANAGER 08/21/2021 Last Documented On 11:27AM ; [facility] Left trochanteric bursitis PAIN MANAGEME NT NEW CONSULT with JUSTICE SMITH WELFARE MANAGER 08/21/2021 Last Documented On 11:27AM ; [facility] 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 PAIN M ANAGEMENT NEW CONSULT with JUSTICEALFREDO SMITH WELFARE MANAGER 08/21/2021 Last Documented On 1 11:27AM ; [facility] Lumbar spondylosis with radiculopathy PA IN MANAGEMENT NEW CONSULT with JUSTICEALFREDO SMITH WELFARE MANAGER 08/21/2021 Last Documented On 11:27AM ; [facility] Myalgia PAIN MANAGEMENT NEW CONSULT with JUSTICEALFREDO SMITH WELFARE MANAGER 08/21/2021 Last Documented On 11:27AM ; [facility] Neuralgia PAIN MANAGEMENT NEW CONSULT with JUSTICEALFREDO SMITH WELFARE MANAGER 08/21/2021 Last Documented On 11:27AM ; [facility] Opioid dependence with continuous use PA IN MANAGEMENT NEW CONSULT with JUSTICE SMITH APN 08/21/2021 Last Documented On 1 11:27AM ; [facility] Postlaminectomy syndrome PAIN MANAGEMENT NEW CON SULT with JUSTICE SMITH WELFARE MANAGER 08/21/2021 Last Documented On 1 11:27AM ; [facility] Sacroiliitis PAIN MANAGEMENT NEW CONSULT with JUSTICE GALICIAN 08/21/2021 Last Documented On 1 11:27AM ; [facility] Trochanteric bursitis PAIN MANAGEMENT NEW CONSUL T with JUSTICE GALICIAN 08/21/2021 Last Documented On 1 11:27AM ; [facility] Instructions Includes: Instructions for all patient encounters Education and Decision Aids were provided during visit for: Pill Count: Patient did not bring pain medication to appointment for pill count, per policy. Advised in order to continue to safely prescribe opioids, medication must be brought to each appointment Last Documented On 2 9:10AM ; [facility] Pill Count: Patient did not bring pain medication to appointment for pill count, per policy. Advised in order to continue to safely prescribe opioids, medication must be brought to each appointment Last Documented On 1 2:54PM ; [facility] Pill Count: Patient did not bring pain medication to appointment for pill count, per policy. Advised in order to continue to safely prescribe opioids, medication must be brought to each appointment Last Documented On 1 2:39PM ; [facility] Medical Equipment - Implanted Devices Includes: Current and historical Devices No Medical Equipment Recorded Medications Includes: Current and historical Medications Current Medications (continue as prescribed) DULoxetine HCl 60 MG Oral Ca psule Delayed Release Particles 01/05/2022 Provider: BOB BLISS APRN-FPA, LODGING MANAGER-BC Diagnosis: TAKE ONE CAPSULE BY MOUTH AT BEDTIME Last Documented On 2 2:43PM By BOB BLISS LODGING MANAGER-BC ; [facility] DULoxetine HCl 60 MG Oral Capsule Delayed Release Particles 10/07/2021 Provider: SG CABRALES ANP-BC Diagnosis: Postlaminectomy syndrome, not elsewhere classified TAKE ONE CAPSULE BY MOUTH AT BEDTIME Last Documented On 1 8:27AM By SG WILKES ; [facility] Xtampza ER 13.5 MG Oral Caps ule ER 12 Hour Abuse-Deterrent 09/17/2021 Provider: SG MORRIS Diagnosis: 1 tab every 12 hours by mouth Last Documented On 1 5:51PM By SG WILKES ; [facility] oxyCODONE-Acetaminophen 10-3 25 MG Oral Tablet 09/17/2021 Provider: SG SY Diagnosis: 1 po tid prn Last Documented On 1 5:51PM By SG WILKES ; [facility] DULoxetine HCl 30 MG Oral Capsule Delayed Release Particles 09/11/2021 Provider: SG WILKES Diagnosis: Postlaminectomy syndrome, not elsewhere classified 1 capsule daily in am Last Documented On 1 3:59PM By SG WILKES ; [facility] Pregabalin 150 MG Oral Capsule 09/11/2021 Provider: SG WILKES Diagnosis: Other spondylosi s with radiculopathy, lumbar region 1 CAPSULE TWO TIMES A DAY Last Documented On 1 3:59PM By SG WILKES ; [facility] Lisinopril 5 MG Oral Tablet 08/21/2021 Provider: Diagnosis: Last Documented On 08/21/2021 2:09PM By Alison SANDERS ; [facility] Diclofenac Sodium 2% External Solution 08/21/2021 Pr ovider: Diagnosis: Last Documented On 08/21/2021 2:14PM By Alison SANDERS ; [facility] Esomeprazole Magnesium 40 MG Oral Capsule Delayed Rele ase 08/21/2021 Provider: Diagnosis: Last Documented On 08/21/2021 2:15PM By Alison SANDERS ; [facility] Ferrous Fumarate 325 (106 Fe) MG Oral Tablet Provider: Diagnosis: Last Documented On 08/21/2021 2:15PM By Alison SANDERS ; [facility] Levothyroxine Sodium 50 MCG Oral Capsule 08/21/2021 Provider: Diagnosis: Last Documented On 08/21/2021 2:16PM By Alison SANDERS ; [facility] Oxybutynin Chloride 5 MG Oral Tablet 08/21/2021 Prov ider: Diagnosis: Last Documented On 08/21/2021 2:16PM By Alison SANDERS ; [facility] Sennosides-Docusate Sodium 8.6-50 MG Oral Capsule 07/26 Provider: Diagnosis: Last Documented On 08/21/2021 2:14PM By Alison SANDERS ; [facility] Polyethylene Glycol 3350 Powder 08/21/2021 Provider: Diagnosis: Last Documented On 08/21/2021 2:14PM By Alison SANDERS ; [facility] Ondansetron HCl 4 MG Oral Tablet 08/21/2021 Provider : Diagnosis: Last Documented On 08/21/2021 2:12PM By Alison SANDERS ; [facility] Docusate Sodium 100 MG Oral Capsule 08/21/2021 Provi ravi: Diagnosis: Last Documented On 08/21/2021 2:12PM By Alison SANDERS ; [facility] SUMAtriptan Succinate 6 MG/0 .5ML Subcutaneous Solution Auto-injector 08/21/2021 Provider: Diagnosis: Last Documented On 08/21/2021 2:11PM By Alison SANDERS ; [facility] Lyrica 100 MG Oral Capsule 08/21/2021 Provider: Rajinder SMITH APN Diagnosis: Other spondylosi s with radiculopathy, lumbar region 1 CAPSULE TWO TIMES A DAY.St art 08/22. Discontinue use of Gabapentin. Last Documented On 08/21/2021 3:34PM By Justice Smith APN ; [facility] HM Lidocaine Patch 4% External 08/21/2021 Provider: Diagnosis: Last Documented On 08/21/2021 2:09PM By Alison SANDERS ; [facility] Fluticasone Propionate 50 MCG/ACT Nasal Suspension 08/21/2021 Provider: Diagnosis: Last Documented On 08/21/2021 2:08PM By Alison SANDERS ; [facility] Cyclobenzaprine HCl 5 MG Oral Tablet 08/21/2021 Prov ider: Diagnosis: Last Documented On 08/21/2021 2:08PM By Alison SANDERS ; [facility] Relistor 12 MG/0.6ML Subcutaneous Solution 08/21/2021 Provider: Diagnosis: Last Documented On 08/21/2021 2:07PM By Alison SANDERS ; [facility] Narcan 4 MG/0.1ML Nasal Liquid 08/21/2021 Provider: Diagnosis: Last Documented On 08/21/2021 2:07PM By Alison SANDERS ; [facility] Past Medications on file Xtampza ER 13.5 MG Oral Caps ule ER 12 Hour Abuse-Deterrent 09/11/2021 - 09/17/2021 Provider: Diagnosis: Last Documented On 5:48PM By SG WILKES ; [facility] ALPRAZolam 0.5 MG Oral Tablet 09/11/2021 - 11/06/2021 Provider: SG WILKES Diagnosis: 1 po1 hour prior to MRIdo not take with percocet Last Documented On 11/06/2021 10:07AM By Justice Smith APN ; [facility] Pregabalin 150 MG Oral Capsule 09/11/2021 - 11/06/2021 Provider: SG WILKES Diagnosis: Other spondylosi s with radiculopathy, lumbar region 1 CAPSULE TWO TIMES A DAY Last Documented On 11/06/2021 10:08AM By Justice Smith APN ; [facility] DULoxetine HCl 60 MG Oral Capsule Delayed Release Particles 09/11/2021 - 10/07/2021 Provider: SG WILKES Diagnosis: Postlaminectomy syndrome, not elsewhere classified One tablet at bed time Last Documented On 8:18AM By SG WILKES ; [facility] Pregabalin 150 MG Oral Capsule 09/11/2021 - 11/06/2021 Provider: SG WILKES Diagnosis: Postlaminectomy syndrome, not elsewhere classified 1 CAPSULE TWO TIMES A DAY Last Documented On 11/06/2021 10:08AM By Justice Smith APN ; [facility] DULoxetine HCl 30 MG Oral Ca psule Delayed Release Particles 08/21/2021 - 11/06/2021 Provider: Diagnosis: Last Documented On 11/06/2021 10:08AM By Justice Smith APN ; [facility] Gabapentin 800 MG Oral Tablet 08/21/2021 - 09/11/2021 Provider: Diagnosis: Last Documented On 3:38PM By SG WILKES ; [facility] oxyCODONE-Acetaminophen 10-300 MG Oral Tablet 08/21/20 21 - 08/21/2021 Provider: Diagnosis: Last Documented On 08/21/2021 2:10PM By Alison SANDERS ; [facility] oxyCODONE-Acetaminophen 10-325 MG Oral Tablet 08/21/20 21 - 09/17/2021 Provider: Diagnosis: Last Documented On 5:48PM By SG WILKES ; [facility] oxyCODONE ER 13.5 MG Oral Ca psule ER 12 Hour Abuse-Deterrent 08/21/2021 - 11/06/2021 Provider: Diagnosis: Last Documented On 11/06/2021 10:09AM By Justice Smith APN ; [facility] Medications Administered Includes: Administered Medications in patient's chart No Administered Medications Recorded Results Includes: Results from 08/22/2024 through 08/22/2025 No Results Recorded For Specified Dates History of Present Illness History of Present Illness not supported for this document type No History of Present Illness Recorded Social History Description Last Updated Tobacco non-user 08/21/2021 Last Documented On 11:27AM ; [facility] [PHQ-2] Patient Health Questionnaire 2 i tem total score: 17 (Scale: 0-6) 08/21/2021 Last Documented On 11:27AM ; [facility] Alcohol 08/21/2021 Last Documented On 11:27AM ; [facility] Amount of alcohol per day: 2 08/21/2021 Last Documented On 11:27AM ; [facility] Difficulty walking 08/21/2021 Last Documented On 10/29/202 1 11:27AM ; [facility] Smoking Status Unknown Procedures and Surgical History Surgical History Last Updated No Pacemaker 09/11/2021 Last Documented On 11:12PM ; [facility] Surgical / procedural history Dr Torres 09/11/2021 Last Documented On 11:12PM ; [facility] Medical History Includes: Medical History in patient's chart Description Last Updated Acupuncture 09/11/2021 Last Documented On 11:12PM ; [facility] Back brace 09/11/2021 Last Documented On 11:12PM ; [facility] patient care nursing assistant 09/11/2021 Last Documented On 11:12PM ; [facility] CT/MRI Legs n chestt. betty 09/11/2021 Last Documented On 11:12PM ; [facility] Currently wearing eyeglasses 09/11/2021 Last Documented On 11:12PM ; [facility] Deep muscle stimulation 09/11/2021 Last Documented On 11:12PM ; [facility] Injection/Nerve blocks 09/11/2021 Last Documented On 11:12PM ; [facility] No Pain Pump 09/11/2021 Last Documented On 11:12PM ; [facility] Pain Clinic 09/11/2021 Last Documented On 11:12PM ; [facility] Pain Psychologist/CBT 09/11/2021 Last Documented On 1 11:12PM ; [facility] Physical therapy 09/11/2021 Last Documented On 11:12PM ; [facility] Please list all surgeries: Knees [place] 1 11/11/2020 Last Documented On 11:12PM ; [facility] Spinal cord stimulator 09/11/2021 Last Documented On 11:12PM ; [facility] Surgery 09/11/2021 Last Documented On 11:12PM ; [facility] Treatment with TENS unit 09/11/2021 Last Documented On 1 11:12PM ; [facility] Uses a cane for support 09/11/2021 Last Documented On 1 11:12PM ; [facility] Uses a Knee Brace 09/11/2021 Last Documented On 1 11:12PM ; [facility] X-rays legs betty 09/11/2021 Last Documented On 1 11:12PM ; [facility] Family History Includes: Family History in patient's chart Description Last Updated Fraternal history of Arthritis Last Documented On 1 11:12PM ; [facility] Maternal history of Arthritis 09/11/2021 Last Documented On 1 11:12PM ; [facility] Maternal history of family history of is chemic heart disease 09/11/2021 Last Documented On 1 11:12PM ; [facility] Maternal history of reported family hist ory of seizures 09/11/2021 Last Documented On 1 11:12PM ; [facility] Maternal history of stroke/paralysis Last Documented On 1 11:12PM ; [facility] Paternal history of Arthritis 09/11/2021 Last Documented On 1 11:12PM ; [facility] Paternal history of family history of is chemic heart disease 09/11/2021 Last Documented On 1 11:12PM ; [facility] Sororal history of Arthritis 09/11/2021 Last Documented On 1 11:12PM ; [facility] Review of Systems Review of Systems not supported for this document type No Review of Systems Recorded Mental Status No Mental Status Recorded Functional Status No Functional Status Recorded Physical Exam Physical Exam not supported for this document type No Physical Exam Recorded Allergies Includes: Active, inactive, and resolved Allergies No Known Allergies Insurance Includes: Active Insurance Policies Plan Name Member ID Group # Subscriber Relationship Effect sarah Dates 1 - [facility] [id number] MAGDALENO wong Clinical Notes Includes: Signed Clinical Notes starting from 11/13/2022 No Clinical Notes Recorded
--- OUTSIDE RECORDS SUMMARY | 2025-08-22 14:38 | XMS_ITS | Clinical Summary ---
Author Organization [facility] Address [address] [place] [address] Phone Care Team Providers Care Embossing Calender Operator Name Role Phone JORGE A LOYA, FABIOLA Unavailable [phone] DENEEN BEAL MD Primary Care Provider [phone] Reason for Visit and Chief Complaint [Patient Encounter] Plan of Treatment No Plan of Treatment Recorded Assessments Includes: Assessments from this encounter No Assessments Recorded Medical Equipment - Implanted Devices Includes: Current Devices No Medical Equipment Recorded Medications Includes: Medications discussed during this encounter and other current Medications Discontinued / Stopped on this date SG CABRALES ANP-BC on 09/11/2021 ALPRAZolam 0.5 MG Oral Tablet Provider: SG CABRALES ANP-BC Diagnosis: Last Documented On 11/06/2021 10:07AM By Vicenta Smith APN ; [facility] Pregabalin 150 MG Oral Capsule Provider: SG ZAPATA-BC Diagnosis: Other spondylosi s with radiculopathy, lumbar region Last Documented On 11/06/2021 10:08AM By Vcienta Smith APN ; [facility] Pregabalin 150 MG Oral Capsule Provider: SG CABRALES ANP-BC Diagnosis: Postlaminectomy syndrome, not elsewhere classified Last Documented On 11/06/2021 10:08AM By Vicenta Smith APN ; [facility] DULoxetine HCl 30 MG Oral Capsule Delayed Release Part icles Provider: Diagnosis: Last Documented On 11/06/2021 10:08AM By Vicenta Smith APN ; [facility] oxyCODONE ER 13.5 MG Oral Capsule ER 12 Hour Abuse-Det errent Provider: Diagnosis: Last Documented On 11/06/2021 10:09AM By Vicenta Smith APN ; [facility] Current Medications (continue as prescribed) DULoxetine HCl 60 MG Oral Ca psule Delayed Release Particles 01/05/2022 Provider: BOB LYON, NOMAN Diagnosis: TAKE ONE CAPSULE BY MOUTH AT BEDTIME Last Documented On 2 2:43PM By BOB ROOT-BC ; [facility] DULoxetine HCl 60 MG Oral Capsule Delayed Release Particles 10/07/2021 Provider: SG WILKES Diagnosis: Postlaminectomy syndrome, not elsewhere classified TAKE ONE CAPSULE BY MOUTH AT BEDTIME Last Documented On 1 8:27AM By SG WILKES ; [facility] Xtampza ER 13.5 MG Oral Caps ule ER 12 Hour Abuse-Deterrent 09/17/2021 Provider: SG MORRIS Diagnosis: 1 tab every 12 hours by mouth Last Documented On 1 5:51PM By SG WILKES ; [facility] oxyCODONE-Acetaminophen 10-3 25 MG Oral Tablet 09/17/2021 Provider: SG SY Diagnosis: 1 po tid prn Last Documented On 1 5:51PM By SG WILKES ; [facility] DULoxetine HCl 30 MG Oral Capsule Delayed Release Particles 09/11/2021 Provider: SG WILKES Diagnosis: Postlaminectomy syndrome, not elsewhere classified 1 capsule daily in am Last Documented On 1 3:59PM By SG WILKES ; [facility] Pregabalin 150 MG Oral Capsule 09/11/2021 Provider: SG WILKES Diagnosis: Other spondylosi s with radiculopathy, lumbar region 1 CAPSULE TWO TIMES A DAY Last Documented On 1 3:59PM By SG WILKES ; [facility] Lisinopril 5 MG Oral Tablet 08/21/2021 Provider: Diagnosis: Last Documented On 08/21/2021 2:09PM By Alison SANDERS ; [facility] Diclofenac Sodium 2% External Solution 08/21/2021 Pr ovider: Diagnosis: Last Documented On 08/21/2021 2:14PM By Alison SANDERS ; [facility] Esomeprazole Magnesium 40 MG Oral Capsule Delayed Rele ase 08/21/2021 Provider: Diagnosis: Last Documented On 08/21/2021 2:15PM By Alison SANDERS ; [facility] Ferrous Fumarate 325 (106 Fe) MG Oral Tablet Provider: Diagnosis: Last Documented On 08/21/2021 2:15PM By Alison SANDERS ; [facility] Levothyroxine Sodium 50 MCG Oral Capsule 08/21/2021 Provider: Diagnosis: Last Documented On 08/21/2021 2:16PM By Alison SANDERS ; [facility] Oxybutynin Chloride 5 MG Oral Tablet 08/21/2021 Prov ider: Diagnosis: Last Documented On 08/21/2021 2:16PM By Alison SANDERS ; [facility] Sennosides-Docusate Sodium 8.6-50 MG Oral Capsule 07/26 Provider: Diagnosis: Last Documented On 08/21/2021 2:14PM By Alison SANDERS ; [facility] Polyethylene Glycol 3350 Powder 08/21/2021 Provider: Diagnosis: Last Documented On 08/21/2021 2:14PM By Alison SANDERS ; [facility] Ondansetron HCl 4 MG Oral Tablet 08/21/2021 Provider : Diagnosis: Last Documented On 08/21/2021 2:12PM By Alison SANDERS ; [facility] Docusate Sodium 100 MG Oral Capsule 08/21/2021 Provi ravi: Diagnosis: Last Documented On 08/21/2021 2:12PM By Alison SANDERS ; [facility] SUMAtriptan Succinate 6 MG/0 .5ML Subcutaneous Solution Auto-injector 08/21/2021 Provider: Diagnosis: Last Documented On 08/21/2021 2:11PM By Alison SANDERS ; [facility] Lyrica 100 MG Oral Capsule 08/21/2021 Provider: Rajinder SMITH APN Diagnosis: Other spondylosi s with radiculopathy, lumbar region 1 CAPSULE TWO TIMES A DAY.St art 08/22. Discontinue use of Gabapentin. Last Documented On 08/21/2021 3:34PM By Vicenta Smith APN ; [facility] Lidocaine Patch 4% External 08/21/2021 Provider: Diagnosis: Last Documented On 08/21/2021 2:09PM By Alison SANDERS ; [facility] Fluticasone Propionate 50 MCG/ACT Nasal Suspension 08/21/2021 Provider: Diagnosis: Last Documented On 08/21/2021 2:08PM By Alison SANDERS ; [facility] Cyclobenzaprine HCl 5 MG Oral Tablet 08/21/2021 Prov ider: Diagnosis: Last Documented On 08/21/2021 2:08PM By Alison SANDERS ; [facility] Relistor 12 MG/0.6ML Subcutaneous Solution 08/21/2021 Provider: Diagnosis: Last Documented On 08/21/2021 2:07PM By Alison SANDERS ; [facility] Narcan 4 MG/0.1ML Nasal Liquid 08/21/2021 Provider: Diagnosis: Last Documented On 08/21/2021 2:07PM By Alison SANDERS ; [facility] Medications Administered Includes: Administered Medications from [...] Location Date Check-In Time Check-Out Time Diagnosis [Patient Encounter] VICENTA SMITH APN 11/06/2021 2:07PM 11:59PM Insurance Includes: Active Insurance Policies Plan Name Member ID Group # Subscriber Relationship Effect sarah Dates 1 - [facility] [id number] MAGDALENO wong Clinical Notes Includes: Clinical Notes from this encounter No Clinical Notes Recorded
[2025-08-22 14:39] LABS: Thyroid Stimulating Hormone 5.210 uIU/mL (0.465-4.680)
== END 2025-08-22 13:15 | disposition home or self-care (01) ==
PROVIDERS: PCP Internal Medicine Cardiovascular Disease; Visit Provider Nurse Practitioner Family
DX: R07.89 Other chest pain (principal); E03.9 Hypothyroidism, unspecified
CPT/HCPCS: 36415; 71110; 73110; 73130; 84443

== ENCOUNTER 2025-10-01 14:35 | Outpatient (CLI) | payer MEDICARE, SELFPAY ==
--- NOTE | ~2025-10-01 | XR_ITS ---
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 Findings: No acute fracture or malalignment. Moderate degenerative changes. The visualized left arthroplasty appears unremarkable however there is minimal lucency noted around the proximal implant. Soft tissues unremarkable. Impression: No acute fracture or malalignment. Reviewed, dictated and finalized at location P. C WORKER Impression: No acute fracture or malalignment.
--- NOTE | ~2025-10-01 | XR_ITS ---
EXAMINATION: XR shoulder RT min 2V DATE: 10/01/2025 15:28 INDICATION: Injury TECHNIQUE: Right shoulder x-rays were obtained. 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 No fracture lucency or dislocation. Partially visualized dorsal column stimulating wires in the thoracic spine. IMPRESSION: 1. Severe degenerative changes of the right shoulder with chronic separation of the AC joint and high riding humeral head consistent with rotator cuff disruption/tear. Reviewed, dictated and finalized at location A. 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 Severe degenerative changes of the right shoulder with chronic separation of the AC joint and high riding humeral head consistent with rotator cuff disrupt ion/tear.
[2025-10-01 15:13] LABS: Hematocrit 35.8 % (35.0-42.0); Hemoglobin 11.6 g/dL (11.7-13.8); Immature Granulocyte Percent A 0.4 % (0.0-0.0); Lymphocytes Absolute Auto 1.45 K/mm3 (1.10-4.50); Mean Corpuscular HGB Conc 32.4 g/dL (32-36); Mean Corpuscular Hemoglobin 29.2 pg (27.0-31.0); Mean Corpuscular Volume 90.2 fL (78.0-102.0); Nucleated Red Blood Cells Absolute Auto 0.00 K/mm3 (0.00-0.00); Nucleated Red Blood Cells Perc 0.0 % (0-0.0); Platelet Count Result 417 K/mm3 (150-420); Red Blood Count 3.97 M/mm3 (4.20-5.40); White Blood Count 7.2 K/mm3 (4.8-10.8)
[2025-10-01 15:25] LABS: Alanine Aminotransferase 40 U/L (6-35); Albumin Level 4.4 g/dL (3.5-5.1); Alkaline Phosphatase 124 U/L (38-126); Anion Gap 10 mmol/L (4-12); Aspartate Amino Transferase 33 U/L (14-36); Bilirubin,Total 0.1 mg/dL (0.2-1.3); Blood Urea Nitrogen 6 mg/dL (7-17); Calcium 9.6 mg/dL (8.4-10.2); Carbon Dioxide 24 mmol/L (22-30); Chloride 106 mmol/L (98-107); Estimated Glomerular Filt Rate > 60; Glucose 130 mg/dL (65-110); Osmolality Calculated 289 mOsm/kg (285-295); Potassium 3.7 mmol/L (3.4-5.0); Sodium 140 mmol/L (137-145); Total Protein 6.6 g/dL (6.3-8.2)
[2025-10-01 15:36] LABS: Add Urine Microscopic? NO; Appearance Urine Clear (Clear); Glucose Urine UA Negative (Negative); Leukocyte Esterase Ur Negative LEU/UL (Negative); Nitrate Urine Negative (Negative); Specific Grav Ur 1.020 (1.010-1.020)
[2025-10-01 15:55] LABS: Thyroid Stimulating Hormone Reflex 2.670 uIU/mL (0.465-4.68)
== END 2025-10-01 14:36 | disposition home or self-care (01) ==
PROVIDERS: PCP Nurse Practitioner Family; Visit Provider Nurse Practitioner Family
DX: R19.5 Other fecal abnormalities (principal); E03.9 Hypothyroidism, unspecified; R30.0 Dysuria; R19.7 Diarrhea, unspecified
CPT/HCPCS: 36415; 73030; 73521; 80053; 81003; 83605; 84443; 85025

== ENCOUNTER 2025-10-08 12:43 | Outpatient (CLI) | payer MEDICARE, SELFPAY ==
[2025-10-08 13:09] LABS: Hematocrit 38.5 % (35.0-42.0); Hemoglobin 12.0 g/dL (11.7-13.8); Immature Granulocyte Percent A 0.4 % (0.0-0.0); Lymphocytes Absolute Auto 0.49 K/mm3 (1.10-4.50); Mean Corpuscular HGB Conc 31.2 g/dL (32-36); Mean Corpuscular Hemoglobin 28.8 pg (27.0-31.0); Mean Corpuscular Volume 92.5 fL (78.0-102.0); Nucleated Red Blood Cells Absolute Auto 0.00 K/mm3 (0.00-0.00); Nucleated Red Blood Cells Perc 0.0 % (0-0.0); Platelet Count Result 426 K/mm3 (150-420); Red Blood Count 4.16 M/mm3 (4.20-5.40); White Blood Count 8.1 K/mm3 (4.8-10.8)
[2025-10-08 13:11] LABS: Add Urine Microscopic? NO; Appearance Urine Clear (Clear); Glucose Urine UA Negative (Negative); Leukocyte Esterase Ur Negative LEU/UL (Negative); Nitrate Urine Negative (Negative); Specific Grav Ur 1.025 (1.010-1.020)
[2025-10-08 13:27] LABS: Alanine Aminotransferase 28 U/L (6-35); Albumin Level 4.4 g/dL (3.5-5.1); Alkaline Phosphatase 132 U/L (38-126); Anion Gap 10 mmol/L (4-12); Aspartate Amino Transferase 31 U/L (14-36); Bilirubin,Total 0.3 mg/dL (0.2-1.3); Blood Urea Nitrogen 9 mg/dL (7-17); Calcium 9.2 mg/dL (8.4-10.2); Carbon Dioxide 24 mmol/L (22-30); Chloride 107 mmol/L (98-107); Estimated Glomerular Filt Rate > 60; Glucose 156 mg/dL (65-110); Osmolality Calculated 293 mOsm/kg (285-295); Potassium 4.2 mmol/L (3.4-5.0); Sodium 141 mmol/L (137-145); Total Protein 7.0 g/dL (6.3-8.2)
[2025-10-11 14:00] LABS: TB Skin Test Site Right Arm
[2025-10-11 14:01] LABS: TB Skin Test Interpretation Unable to Read (Negative)
== END 2025-10-08 12:44 | disposition home or self-care (01) ==
LOC: CHSLAB 12:43
PROVIDERS: PCP Nurse Practitioner Family; Visit Provider Nurse Practitioner Family
DX: Z11.1 Encounter for screening for respiratory tuberculosis (principal); R79.89 Other specified abnormal findings of blood chemistry; R39.9 Unspecified symptoms and signs involving the genitourinary system
CPT/HCPCS: 36415; 80053; 81003; 83605; 85025; 86580